=== PATIENT | male | born 1990 | race Caucasian/White ===

== ENCOUNTER 2019-07-06 12:35 | Emergency (ER) | payer BC, SELFPAY ==
[2019-07-06 13:09] VITALS: BP 167/97; PULSE 118; RESP 15; TEMP 38.2; O2SAT 99; BMI 36.0
--- NOTE | 2019-07-06 13:36 | DI.RAD.S_ITS ---
PROCEDURE: XR CHEST 1V INDICATIONS: suspected sepsis TECHNIQUE: One view of the chest was acquired. COMPARISON: None. FINDINGS: Surgical changes and devices: None. Lungs and pleura: Lungs are clear. No pleural effusions or pneumothorax. Mediastinum: Mediastinal contours appear normal. Heart size is within normal limits. Bones and chest wall: No suspicious bony lesions. Overlying soft tissues appear unremarkable. IMPRESSION: No acute cardiopulmonary abnormality. Dictated by: Gustavo Todd M.D. on 07/06/2019 at 14:11 Approved by: Gustavo Todd M.D. on 07/06/2019 at 14:11
[2019-07-06 14:18] LABS: Add Manual Diff / Slide Review NO; Basophils Absolute Auto 100 /uL (0-100); Basophils Percent Auto 0.6 % (0-2); Eosinophils Absolute Auto 0 /uL (0-450); Hematocrit 41.7 % (41-53); Hemoglobin 14.5 g/dL (13.5-17.5); Lymphocytes Absolute Auto 1800 /uL (1100-4500); Lymphocytes Percent Auto 10.1 % (25-40); Mean Corpuscular HGB Conc 34.7 % (30-36); Mean Corpuscular Hemoglobin 28.4 PG (26-34); Mean Corpuscular Volume 81.6 fL (80-100); Monocytes Absolute Auto 1500 /uL (0-900); Monocytes Percent Auto 8.3 % (3-14); Neutrophils Absolute Auto 14300 /uL (1500-7000); Platelet Count 294 X10^3/uL (150-400); Red Blood Cell Count 5.11 X10^6/uL (4.5-5.9); Red Cell Distribution Width 12.6 % (11.6-14.8); White Blood Cell Count 17.6 X10^3/uL (4.5-11.0)
[2019-07-06] MEDS: SODIUM CHLORIDE 0.9% 1,000 ML 1000 ML IV (14:24)
[2019-07-06 14:28] LABS: INR 1.2 (0.9-1.3); Prothrombin Time 14.1 SECONDS (10.1-12.7)
[2019-07-06 14:30] LABS: PTT Partial Thromboplastin Tim 32 SECONDS (26.4-36.2)
[2019-07-06 14:31] LABS: Alanine Aminotransferase 18 IU/L (<50); Albumin 4.5 g/dL (3.5-5.0); Albumin Globulin Ratio 1.2 (1.0-2.8); Alkaline Phosphatase 108 U/L (38-126); Aspartate Aminotransferase 19 IU/L (17-59); Bilirubin Total 1.3 mg/dL (0.2-1.3); Blood Urea Nitrogen 10 mg/dL (9-20); Calcium 9.5 mg/dL (8.4-10.2); Carbon Dioxide 18 mmol/L (22-32); Chloride 98 mmol/L (98-107); Estimated Glomerular Filt Rate > 60.0 mL/min (>60); Globulin 3.8 g/dL (1.7-4.1); Glucose 286 mg/dL (70-100); HEMOLYSIS < 15 (0-50); Lipase 16 U/L (23-300); Potassium 3.9 mmol/L (3.4-5.1); Sodium 135 mmol/L (137-145); Total Protein 8.3 g/dL (6.3-8.2)
[2019-07-06 14:32] LABS: Lactate (Lactic Acid) 0.9 mmol/L (0.7-2.1)
--- NOTE | 2019-07-06 14:38 | ED.SKABFB ---
HPI - Skin/Abscess/Foreign Bdy <NEETU Zamudio - Last Filed: 07/07/19 01:32> General Chief complaint: Skin/Abscess/Foreign Body Stated complaint: ABSCESS UNDER LEFT ARMPIT Time Seen by Provider: 07/06/19 13:57 Source: patient Mode of arrival: Ambulatory Limitations: no limitations History of Present Illness HPI narrative: This is a 28-year-old gentleman, nonsmoker, who presents to ED with family with chief complain of left armpit swelling, pain, redness which started about 2 weeks ago. Patient states last 2 days he has been having fever, chills, 1 episode of vomiting with worsening pain and swelling. Patient also has a lesion on right armpit which is not as severe as left-sided and it has started draining since last night. Patient reports this is the 4th time having similiar infection/symptoms since Apr last year but he has been able to treated at home up until today. Patient denies chest pain, breathing difficulty, diarrhea. Patient reports discomfort increases with movement. Related Data Home Medications Medication Instructions Recorded Confirmed Blood Pressure Medication 1 tab PO DIRECTED 07/06/19 07/06/19 ibuprofen 200 mg PO PRN PRN 07/06/19 07/06/19 Previous Rx's Medication Instructions Recorded clindamycin HCl 450 mg PO Q8H 10 Days #90 cap 07/06/19 ondansetron 4 mg PO Q8H PRN #10 tab 07/06/19 Allergies Allergy/AdvReac Type Severity Reaction Status Date / Time cefaclor [From [facility]] Allergy Verified 07/06/19 13:09 Review of Systems <NEETU Zamudio - Last Filed: 07/07/19 01:32> Review of Systems Narrative: General: See HPI HEENT: Denies sinus pain, ear pain, sore throat, difficulty swallowing, dizziness. Respiratory: Denies dyspnea, cough, wheezing, hemoptysis, sputum. Cardiovascular: Denies chest pain, palpitations, orthopnea, edema. Gastrointestinal: Denies nausea, vomiting, abdominal pain, diarrhea, constipation, melena. : Denies dysuria, frequency, incontinence, hematuria, urinary retention. Musculoskeletal: Denies weakness, joint pain or bony pain. Skin: See HPI Neurologic: Denies weakness, headache, numbness, change in speech, confusion, seizures, incoordination. Psychiatric: No concerning psychosocial issues. 12-point review of systems is negative except for those stated above. Patient History <NEETU Zamudio - Last Filed: 07/07/19 01:32> Social History Smoking Status: Unknown if ever smoked alcohol intake frequency: holidays/special occasions only Substance Use Type: does not use Exam <NEETU Zamudio - Last Filed: 07/07/19 01:32> Narrative Exam Narrative: General appearance: well developed, well nourished, in no acute distress. Head: normocephalic, atraumatic, no scalp lesions, non-tender. Eye: pupil equal, round. EOMI. Nose: nares patent. Oral: mucosa moist. Neck/Thyroid: neck supple, full range of motion, no visible masses. Heart: no clubbing, no cyanosis, no edema. Lungs: Breathing even and unlabored. No stridor. No accessory muscles used. Chest: normal shape and expansion. Abdomen: non-obese, non-distended. Neurologic: alert and oriented. Cognitive exam, ROBOTICS TECHNICIAN and PNS grossly intact on informal exam. Psych: good eye contact, normal affect. Initial Vital Signs Initial Vital Signs: Vital Signs Temperature 100.7 F H 07/06/19 13:09 Pulse Rate 118 H 07/06/19 13:09 Respiratory Rate 15 07/06/19 13:09 Blood Pressure 167/97 H 07/06/19 13:09 Pulse Oximetry 99 07/06/19 13:09 Skin General: erythema, No fluctuance, induration (Significant induration on left axilla without drainage.) and warm Lesions: lesion noted (Left and right ) Trauma: no lacerations or abrasions Other: Small, erythematic, indurated lesion on R axilla with scant amount of white/light yellow purulent drainage. <Fallon Smith DO - Last Filed: 07/07/19 07:15> Initial Vital Signs Initial Vital Signs: Vital Signs Temperature 100.7 F H 07/06/19 13:09 Pulse Rate 118 H 07/06/19 13:09 Respiratory Rate 15 07/06/19 13:09 Blood Pressure 167/97 H 07/06/19 13:09 Pulse Oximetry 99 07/06/19 13:09 Scores <Sadiq Codey DOUGHNUT ICER - Last Filed: 07/07/19 01:32> GCS Erik coma scale eye opening: Spontaneous Erik coma scale verbal response: Orientated Earth coma scale motor response: Obey commands Earth coma scale total score: 15 Course <Sadiq JOCELINE AlegreP - Last Filed: 07/07/19 01:32> Orders Ordered: Discontinued Medications Sodium Chloride (Normal Saline 0.9%) 1,000 mls @ 1,000 mls/hr IV BOLUS ONE Stop: 07/06/19 14:35 Last Infusion: 07/06/19 17:07 Dose: 0 mls/hr Documented by: Admin: 07/06/19 14:24 Dose: 1,000 mls/hr Documented by: INES Clindamycin Phosphate (Cleocin) 600 mg in 50 mls @ 50 mls/hr IV NOW ONE Stop: 07/06/19 17:08 Last Infusion: 07/06/19 17:31 Dose: 0 mls/hr Documented by: Admin: 07/06/19 16:52 Dose: 50 mls/hr Documented by: INES Ketorolac Tromethamine (Toradol) 30 mg IV NOW ONE Stop: 07/06/19 15:35 Last Admin: 07/06/19 15:42 Dose: 30 mg Documented by: INES Vital Signs Vital signs: Vital Signs - 8 hr 07/06/19 17:16 07/06/19 17:35 Temperature 99.1 F Pulse Rate 93 H Respiratory Rate 18 Blood Pressure 126/49 L Pulse Oximetry 98 <Fallon Smith DO - Last Filed: 07/07/19 07:15> Orders Ordered: Discontinued Medications Sodium Chloride (Normal Saline 0.9%) 1,000 mls @ 1,000 mls/hr IV BOLUS ONE Stop: 07/06/19 14:35 Last Infusion: 07/06/19 17:07 Dose: 0 mls/hr Documented by: Admin: 07/06/19 14:24 Dose: 1,000 mls/hr Documented by: INES Clindamycin Phosphate (Cleocin) 600 mg in 50 mls @ 50 mls/hr IV NOW ONE Stop: 07/06/19 17:08 Last Infusion: 07/06/19 17:31 Dose: 0 mls/hr Documented by: Admin: 07/06/19 16:52 Dose: 50 mls/hr Documented by: INES Ketorolac Tromethamine (Toradol) 30 mg IV NOW ONE Stop: 07/06/19 15:35 Last Admin: 07/06/19 15:42 Dose: 30 mg Documented by: INES Vital Signs Vital signs: Vital Signs - 8 hr 07/06/19 17:16 07/06/19 17:35 Temperature 99.1 F Pulse Rate 93 H Respiratory Rate 18 Blood Pressure 126/49 L Pulse Oximetry 98 MDM - Skin/Abscess/Foreign Bdy <NEETU Zamudio - Last Filed: 07/07/19 01:32> Differential Diagnosis Differential diagnosis: Likely abscess of skin or subcutaneous tissue, cellulitis and other Medical Records Attestation: I reviewed the patient's medical records. Lab Data Attestation: I reviewed the patient's lab results. Result diagrams: 07/06/19 14:07 07/06/19 14:07 Labs: Lab Results 07/06/19 07/06/19 07/06/19 Range/Units 14:07 14:07 14:07 WBC 17.6 H (4.5-11.0) X10^3/uL RBC 5.11 (4.5-5.9) X10^6/uL Hgb 14.5 (13.5-17.5) g/dL Hct 41.7 (41-53) % MCV 81.6 (80-100) fL MCH 28.4 (26-34) PG MCHC 34.7 (30-36) % RDW 12.6 (11.6-14.8) % Plt Count 294 (150-400) X10^3/uL Neut % (Auto) 81.0 H (50-75) % Lymph % (Auto) 10.1 L (25-40) % [place] % (Auto) 8.3 (3-14) % Eos % (Auto) 0.0 L (2-4) % Baso % (Auto) 0.6 (0-2) % Neut # (Auto) 52198 H (2006-9948) /uL Lymph # (Auto) 1800 (3257-5007) /uL [place] # (Auto) 1500 H (0-900) /uL Eos # (Auto) 0 (0-450) /uL Baso # (Auto) 100 (0-100) /uL PT 14.1 H (10.1-12.7) SECONDS INR 1.2 (0.9-1.3) APTT 32 (26.4-36.2) SECONDS Sodium (137-145) mmol/L Potassium (3.4-5.1) mmol/L Chloride (98-107) mmol/L Carbon Dioxide (22-32) mmol/L BUN (9-20) mg/dL Creatinine (0.66-1.25) mg/dL Estimated GFR (>60) mL/min BUN/Creatinine Ratio (6-22) Glucose (70-100) mg/dL Lactate (0.7-2.1) mmol/L Calcium (8.4-10.2) mg/dL Total Bilirubin (0.2-1.3) mg/dL AST (17-59) IU/L ALT (<50) IU/L Alkaline Phosphatase (38-126) U/L Total Protein (6.3-8.2) g/dL Albumin (3.5-5.0) g/dL Globulin (1.7-4.1) g/dL Albumin/Globulin Ratio (1.0-2.8) Lipase (23-300) U/L Procalcitonin 0.07 (<0.5) ng/mL 07/06/19 07/06/19 Range/Units 14:07 14:07 WBC (4.5-11.0) X10^3/uL RBC (4.5-5.9) X10^6/uL Hgb (13.5-17.5) g/dL Hct (41-53) % MCV (80-100) fL MCH (26-34) PG MCHC (30-36) % RDW (11.6-14.8) % Plt Count (150-400) X10^3/uL Neut % (Auto) (50-75) % Lymph % (Auto) (25-40) % [place] % (Auto) (3-14) % Eos % (Auto) (2-4) % Baso % (Auto) (0-2) % Neut # (Auto) (6008-3014) /uL Lymph # (Auto) (7691-9066) /uL [place] # (Auto) (0-900) /uL Eos # (Auto) (0-450) /uL Baso # (Auto) (0-100) /uL PT (10.1-12.7) SECONDS INR (0.9-1.3) APTT (26.4-36.2) SECONDS Sodium 135 L (137-145) mmol/L Potassium 3.9 (3.4-5.1) mmol/L Chloride 98 (98-107) mmol/L Carbon Dioxide 18 L (22-32) mmol/L BUN 10 (9-20) mg/dL Creatinine 0.40 L (0.66-1.25) mg/dL Estimated GFR > 60.0 (>60) mL/min BUN/Creatinine Ratio 25.0 H (6-22) Glucose 286 H (70-100) mg/dL Lactate 0.9 (0.7-2.1) mmol/L Calcium 9.5 (8.4-10.2) mg/dL Total Bilirubin 1.3 (0.2-1.3) mg/dL AST 19 (17-59) IU/L ALT 18 (<50) IU/L Alkaline Phosphatase 108 (38-126) U/L Total Protein 8.3 H (6.3-8.2) g/dL Albumin 4.5 (3.5-5.0) g/dL Globulin 3.8 (1.7-4.1) g/dL Albumin/Globulin Ratio 1.2 (1.0-2.8) Lipase 16 L (23-300) U/L Procalcitonin (<0.5) ng/mL Imaging Data CT-LUE: Radiologist's impression: [address] [address] [address] Scan Report Signed Patient: Jermain Quan CMR#: [id number] : 1990Acct:[id number] Age/Sex: 28 / MDate of Service: 07/06/19 Loc: ED Accession Number: [id number] Procedure: CT UE LT w con Ordering Provider: Sadiq Alegre PROCEDURE: CT UE LT W CON INDICATIONS: arm pit, swelling, fever, r/o abscess TECHNIQUE: After the administration of intravenous contrast, 3 mm axial sections acquired of the left upper extremity, with coronal and sagittal reformats. COMPARISON: None. FINDINGS: Image quality: Excellent. Bones: No fracture or focal osseous destruction. Soft tissues: Extensive subcutaneous stranding and fluid involving the axillary region, measuring 2.8 x 2.5 cm cross-sectional and axial image 158 series 5 however no definite loculated appearance or rim enhancement. There is adjacent skin thickening. Presumed scanner reactive left axillary lymph nodes. IMPRESSION: Extensive inflammatory changes in the left axilla, with associated skin thickening and subcutaneous edema and fluid. Possible developing phlegmon/inflammatory mass as discussed above measuring 2.8 cm however no definite loculated rim-enhancing abscess seen. If clinically warranted, further monitoring after treatment could be performed with focused ultrasound. No focal osseous destruction to suggest osteomyelitis. Multiple, enlarged presumed reactive left axillary lymph nodes. Dictated by: Willie Myles M.D. on 07/06/2019 at 15:19 Approved by: Willie Myles M.D. on 07/06/2019 at 15:[address] [facility] Narrative Medical decision making narrative: This is a is a 28-year-old male who presents to ED with bilateral skin lesion on bilateral axilla for last 2 weeks which became worse with redness, swelling, pain for last 2 days with fever, chills. Patient reports 1 episode of vomiting last night. Patient has been having these lesions frequently and this is the 6th time since Apr 2018 but has been self-treated so far. Right axilla lesion is small and started draining last night. Physical exam exhibited two large indurated erythematous lesions on the medial base of left upper arm and axilla. Lab tests shows leukocytosis with left shift. Normal lactate and procalcitonin. Initial vital sign showed tachycardia of 118 bpm with elevated temperature of 100.7 with normotensive. Patient was medicated with IV clindamycin and Toradol and 1 L of normal saline. Patient had elevated glucose of 286 without history of diabetes. CT of left upper extremity did not show definite locuated rim-enhancing abscess at this time and there was extensive inflammatory changes with associated skin thickening and subcutaneous edema and fluid. No suggestion of osteomyelitis at this time. Noted multiple enlarged presumed reactive left axillary lymph nodes. Since patient is able to tolerate fluids, will try outpatient therapy with antibiotic medication of clindamycin for 10 day course. Patient does not have current PCP and advised to return to ED in 2 days for recheck or the walk-in clinic he usually sick medical care. Phone number to [facility] was provided to arrange primary care selection. Patient advised warm pack, take [id number] Tylenol and Motrin for discomfort and fever. Patient verbalized understanding and agrees with the treatment plan. <Fallon Smith, DO - Last Filed: 07/07/19 07:15> Lab Data Labs: Lab Results 07/06/19 07/06/19 07/06/19 Range/Units 14:07 14:07 14:07 WBC 17.6 H (4.5-11.0) X10^3/uL RBC 5.11 (4.5-5.9) X10^6/uL Hgb 14.5 (13.5-17.5) g/dL Hct 41.7 (41-53) % MCV 81.6 (80-100) fL MCH 28.4 (26-34) PG MCHC 34.7 (30-36) % RDW 12.6 (11.6-14.8) % Plt Count 294 (150-400) X10^3/uL Neut % (Auto) 81.0 H (50-75) % Lymph % (Auto) 10.1 L (25-40) % [place] % (Auto) 8.3 (3-14) % Eos % (Auto) 0.0 L (2-4) % Baso % (Auto) 0.6 (0-2) % Neut # (Auto) 37499 H (5715-3934) /uL Lymph # (Auto) 1800 (7498-2146) /uL [place] # (Auto) 1500 H (0-900) /uL Eos # (Auto) 0 (0-450) /uL Baso # (Auto) 100 (0-100) /uL PT 14.1 H (10.1-12.7) SECONDS INR 1.2 (0.9-1.3) APTT 32 (26.4-36.2) SECONDS Sodium (137-145) mmol/L Potassium (3.4-5.1) mmol/L Chloride (98-107) mmol/L Carbon Dioxide (22-32) mmol/L BUN (9-20) mg/dL Creatinine (0.66-1.25) mg/dL Estimated GFR (>60) mL/min BUN/Creatinine Ratio (6-22) Glucose (70-100) mg/dL Lactate (0.7-2.1) mmol/L Calcium (8.4-10.2) mg/dL Total Bilirubin (0.2-1.3) mg/dL AST (17-59) IU/L ALT (<50) IU/L Alkaline Phosphatase (38-126) U/L Total Protein (6.3-8.2) g/dL Albumin (3.5-5.0) g/dL Globulin (1.7-4.1) g/dL Albumin/Globulin Ratio (1.0-2.8) Lipase (23-300) U/L Procalcitonin 0.07 (<0.5) ng/mL 07/06/19 07/06/19 Range/Units 14:07 14:07 WBC (4.5-11.0) X10^3/uL RBC (4.5-5.9) X10^6/uL Hgb (13.5-17.5) g/dL Hct (41-53) % MCV (80-100) fL MCH (26-34) PG MCHC (30-36) % RDW (11.6-14.8) % Plt Count (150-400) X10^3/uL Neut % (Auto) (50-75) % Lymph % (Auto) (25-40) % [place] % (Auto) (3-14) % Eos % (Auto) (2-4) % Baso % (Auto) (0-2) % Neut # (Auto) (7570-6696) /uL Lymph # (Auto) (3865-6789) /uL [place] # (Auto) (0-900) /uL Eos # (Auto) (0-450) /uL Baso # (Auto) (0-100) /uL PT (10.1-12.7) SECONDS INR (0.9-1.3) APTT (26.4-36.2) SECONDS Sodium 135 L (137-145) mmol/L Potassium 3.9 (3.4-5.1) mmol/L Chloride 98 (98-107) mmol/L Carbon Dioxide 18 L (22-32) mmol/L BUN 10 (9-20) mg/dL Creatinine 0.40 L (0.66-1.25) mg/dL Estimated GFR > 60.0 (>60) mL/min BUN/Creatinine Ratio 25.0 H (6-22) Glucose 286 H (70-100) mg/dL Lactate 0.9 (0.7-2.1) mmol/L Calcium 9.5 (8.4-10.2) mg/dL Total Bilirubin 1.3 (0.2-1.3) mg/dL AST 19 (17-59) IU/L ALT 18 (<50) IU/L Alkaline Phosphatase 108 (38-126) U/L Total Protein 8.3 H (6.3-8.2) g/dL Albumin 4.5 (3.5-5.0) g/dL Globulin 3.8 (1.7-4.1) g/dL Albumin/Globulin Ratio 1.2 (1.0-2.8) Lipase 16 L (23-300) U/L Procalcitonin (<0.5) ng/mL Discharge Plan Departure Patient Disposition: Home Clinical Impression: Cellulitis Qualifiers: Site of cellulitis: extremity Site of cellulitis of extremity: upper extremity Laterality: unspecified laterality Qualified Code(s): L03.119 - Cellulitis of unspecified part of limb Discharge Date/Time: 07/06/19 17:36 Instructions: DI for Cellulitis -- Adult Activity Restrictions/Additional Instructions: You have been diagnosed with [cellulitis in bilateral axilla. There was no obvious abscess in left axilla per CT test today. You were treated with 1st dose of antibiotic medication clindamycin in ED. Please take next dose later tonight. Your blood sugar today was elevated and this needs to be recheck by primary care physician.]. What to do: *Take your medications as directed. Please complete a course of antibiotic medications for 10 days. Take Zofran as needed for nausea. This medications have been transmitted to [facility] in [place]. Please incorporate probiotics with antibiotic medication to decrease GI irritations. You can take [id number] Tylenol and or Motrin as needed for fever or pain. Fever should improve next 24 hour. If you continue to have fever after this and please return to ED. * since you do not have primary care physician, please return to ED or walk-in clinic that usually visit in 2 days for a recheck. Please use warm pack on affected site to help with infection. Let them know you were seen in the ED and that we asked you to be seen in follow up. *Return to ED if you have any new, worsening, or concerning symptoms, such as [chest pain, breathing difficulty, unable to tolerate fluids, ongoing fever, feeling like faint, or any acute concerns.]. Prescriptions: New clindamycin HCl 150 mg capsule 450 mg PO Q8H 10 Days Qty: 90 RF: 0 ondansetron 4 mg tablet,disintegrating 4 mg PO Q8H PRN (Reason: nausea and vomiting) Qty: 10 RF: 0 No Action ibuprofen 200 mg Tablet 200 mg PO PRN PRN (Reason: pain) RF: 0 Blood Pressure Medication 1 tab PO DIRECTED RF: 0 Referrals: [facility] [Outside]
[2019-07-06 14:59] LABS: Procalcitonin 0.07 ng/mL (<0.5)
[2019-07-06] MEDS: KETOROLAC 60 MG/2 ML VIAL 30 MG IV (15:42)
[2019-07-06 15:46] VITALS: BP 141/91; PULSE 98; RESP 18; TEMP 36.7; O2SAT 99
[2019-07-06] MEDS: CLINDAMYCIN 600 MG/50 ML PIGGYBACK 50 MG IV (16:52)
[2019-07-06 16:54] VITALS: BP 136/77; PULSE 98; RESP 18; TEMP 37.3; O2SAT 98
[2019-07-06 17:16] VITALS: TEMP 37.3
[2019-07-06 17:35] VITALS: BP 126/49; PULSE 93; RESP 18; O2SAT 98
== END 2019-07-06 17:36 | disposition home or self-care (01) ==
PROVIDERS: Emergency Medicine; Emergency Provider Nurse Practitioner Family; Family Provider Physician Assistant
DX: L03.119 Cellulitis of unspecified part of limb (principal); R79.89 Other specified abnormal findings of blood chemistry
CPT/HCPCS: 36415; 71045; 73201; 80053; 83605; 83690; 84145; 85025; 85610; 85730; 87040; 87070; 87077; 87147; 87186; 87205; 93005; 93010; 96361; 96365; 96375; 99283; 99284; J1885; Q9967

== ENCOUNTER 2019-07-14 08:59 | Inpatient (IN) | payer BC, SELFPAY ==
[2019-07-14] VITALS (10 sets, daily range): BP systolic 138–157; BP diastolic 68–100; PULSE 98–125; RESP 14–24; TEMP 36.4–37; O2SAT 97–100; BMI 33.7
[2019-07-14] MEDS: SODIUM CHLORIDE 0.9% 1,000 ML 1000 ML IV ×2 (09:15→16:50)
--- NOTE | 2019-07-14 09:28 | ED_ITS ---
HPI - Skin/Abscess/Foreign Bdy General Chief complaint: Skin/Abscess/Foreign Body Stated complaint: cellulitis lft underarm on Bactrim DS x5days Time Seen by Provider: 07/14/19 09:19 Source: patient and old records reviewed Mode of arrival: Ambulatory Limitations: no limitations History of Present Illness HPI narrative: Patient is a 28-year-old male who presents with left axilla abscess. He was seen evaluated on 07/06/[address] is of left upper arm he was initially placed on clindamycin he was called when it was resistant and switched to Bactrim. He finished his Bactrim however he has gotten bigger. It is more painful. He has sweats and chills at night. He denies being diabetic but his glucose is been high. His arm was quite painful to move. MD complaint: abscess/boil Onset (ago): week(s) Location: LUE Severity: severe Pain Consistency: constant Relieving factors: none Associated symptoms: fever, chills and nausea Related Data Home Medications Medication Instructions Recorded Confirmed ibuprofen 200 mg PO PRN PRN 07/06/19 07/14/19 losartan 25 mg PO DAILY 07/14/19 07/14/19 Allergies Allergy/AdvReac Type Severity Reaction Status Date / Time cefaclor [From [facility]] Allergy Verified 07/14/19 14:09 Review of Systems Constitutional Constitutional: Reports chills, Reports fever(s) and Denies frequent falls Eyes Eyes: Denies blind spots and Denies blurry vision ENT Ears, Nose, Mouth, and Throat: Denies change in voice, Denies dizziness, Denies neck pain and Denies sore throat Cardiovascular Cardiovascular: Denies chest pain, Denies irregular heart rhythm, Denies lightheadedness, Denies palpitations, Denies dyspnea, Denies dyspnea on exertion and Denies orthopnea Respiratory Respiratory: Denies cough, Denies dyspnea, Denies dyspnea on exertion and Denies wheezing Gastrointestinal Gastrointestinal: Denies abdominal pain, Denies change in bowel habits, Denies diarrhea, Denies nausea and Denies vomiting Genitourinary Genitourinary: Denies hematuria, Denies flank pain, Denies urinary incontinence and Denies urinary urgency Musculoskeletal Musculoskeletal: Denies neck pain and Denies numbness Integumentary/Breasts Skin/Breast: Reports as per HPI, Reports erythema, Reports skin swelling and Reports wounds Neurologic Neurologic: Denies behavioral changes, Denies confusion, Denies dizziness, Denies frequent falls and Denies numbness Psychiatric Psychiatric: Denies behavioral changes and Denies confusion Endocrine Endocrine: Denies palpitations Allergic/Immunologic Allergic/Immunologic: Denies wheezing Patient History Medical History HTN (hypertension) (Acute) Surgical History Hx of toe surgery (Acute) No pertinent past surgical history (Acute) Social History household members: significant other Smoking Status: Never smoker alcohol intake frequency: holidays/special occasions only Substance Use Type: does not use Exam Initial Vital Signs Initial Vital Signs: Vital Signs Temperature 98.6 F 07/14/19 09:00 Pulse Rate 125 H 07/14/19 09:00 Respiratory Rate 20 07/14/19 09:00 Blood Pressure 155/100 H 07/14/19 09:00 Pulse Oximetry 100 07/14/19 09:00 GENERAL: Overweight well-appearing young male HEENT: Head atraumatic,EOMI, pupils reactive, face symmetric, moist mucous membranes CARDIOVASCULAR: Regular rate and rhythm without murmurs, rubs or gallops. RESPIRATORY: Breath sounds equal bilaterally, no wheezes rales or rhonchi. ABDOMEN: Soft, nontender. Normoactive bowel sounds all 4 quadrants. No guard ing or rebound. EXTREMITIES: Normal range of motion, no clubbing or edema. Neurovascularly intact NEUROLOGICAL: Alert and oriented x4.Normal gait and speech. SKIN: Significant swelling fluctuation under the left axilla. He has 6 cm x 4 cm area of fluctuation. All much larger area of 10 cm more infiltration no streaking. Significant decreased range of movement in arm Course Orders Ordered: ED Orders 07/14/19 10:11 Blood Culture Stat Complete Blood Count AUTO DIFF Stat Comprehensive Metabolic Panel Stat Ketones (Beta-Hydroxybutyrate) Stat Lactate (Lactic Acid) Stat Procalcitonin Stat 07/14/19 11:43 Consult to General Surgery Stat Acetaminophen (Tylenol) 650 mg PO Q6HR PRN PRN Reason: As Needed for Fever/Mild Pain Al Hydrox/Mg Hydrox/Simethicone (Maalox Plus) 30 ml PO Q6HR PRN PRN Reason: Dyspepsia Bisacodyl (Dulcolax) 10 mg MA DAILY PRN PRN Reason: Constipation Calcium Carbonate (Tums) 1,000 mg PO Q4HR PRN PRN Reason: Dyspepsia Heparin Sodium (Porcine) (Heparin) 5,000 unit SUBCUT BID NIKA Sodium Chloride (Normal Saline 0.9%) 1,000 mls @ 200 mls/hr IV CONT NIKA Last Infusion: 07/14/19 14:58 Dose: 200 mls/hr Documented by: Admin: 07/14/19 14:12 Dose: 100 mls/hr Documented by: ELLYN Ketorolac Tromethamine (Toradol) 30 mg IV Q6HR PRN PRN Reason: Pain, Severe (7-10) Stop: 07/19/19 12:24 Naloxone HCl (Narcan) 0.2 mg IV Q2MIN PRN PRN Reason: Opiate Reversal Ondansetron HCl (Zofran) 4 mg IV Q8HR PRN PRN Reason: Nausea And Vomiting Vancomycin HCl (Vancomycin Per Pharmacy) 1 request MISC NOW ONE Stop: 07/14/19 14:51 Discontinued Medications Hydromorphone HCl (Dilaudid) 0.5 mg IV NOW ONE Stop: 07/14/19 10:01 Last Admin: 07/14/19 10:14 Dose: 0.5 mg Documented by: CHRISTIANA Sodium Chloride (Normal Saline 0.9%) 1,000 mls @ 1,000 mls/hr IV CONT NIKA Last Infusion: 07/14/19 10:40 Dose: 0 mls/hr Documented by: Admin: 07/14/19 09:15 Dose: 1,000 mls/hr Documented by: CHRISTIANA Vancomycin HCl/Dextrose (Vancomycin) 1,500 mg in 300 mls @ 200 mls/hr IV NOW ONE Stop: 07/14/19 10:54 Last Infusion: 07/14/19 12:08 Dose: 0 mls/hr Documented by: Admin: 07/14/19 10:28 Dose: 200 mls/hr Documented by: CHRISTIANA Sodium Chloride (Normal Saline 0.9%) 1,000 mls @ 200 mls/hr IV CONT NIKA Last Infusion: 07/14/19 13:34 Dose: 0 mls/hr Documented by: Admin: 07/14/19 10:40 Dose: 200 mls/hr Documented by: CHRISTIANA Insulin Human Regular (Humulin R) 5 unit IV NOW ONE Stop: 07/14/19 12:42 Last Admin: 07/14/19 12:55 Dose: 5 unit Documented by: LIGIA Cosigned by: CHRISTIANA Insulin Human Regular (Humulin R) 10 unit IV NOW ONE Stop: 07/14/19 14:51 Ketorolac Tromethamine (Toradol) 30 mg IV NOW ONE Stop: 07/14/19 10:01 Last Admin: 07/14/19 10:14 Dose: 30 mg Documented by: CHRISTIANA Ondansetron HCl (Zofran) 4 mg IV NOW ONE Stop: 07/14/19 09:26 Last Admin: 07/14/19 10:02 Dose: 4 mg Documented by: CHRISTIANA Pantoprazole Sodium (Protonix) 40 mg IV NOW ONE Stop: 07/14/19 09:26 Last Admin: 07/14/19 10:02 Dose: 40 mg Documented by: CHRISTIANA Consultations Consultation #1: Dr. Murillo, surgery updated of patient's symptoms test results. Is in ED to seen evaluated patient. At this time no further imaging patient likely needs to go to OR to have drainage. A does request patient need to be admitted to Medicine for elevated glucose. Time: 11:05 Consultation #2: Dr. Leonard, updated patient's test results symptoms need for consultation. Patient will likely be going to the OR probably tomorrow. Recommends IV insulin push, admit to ICU. Time: 11:50 Vital Signs Vital signs: Vital Signs - 8 hr 07/14/19 09:00 07/14/19 09:56 07/14/19 10:30 Temperature 98.6 F Pulse Rate 125 H 107 H 109 H Respiratory Rate 20 18 18 Blood Pressure 155/100 H Blood Pressure [Right Arm] 157/91 H 151/81 H Pulse Oximetry 100 100 98 07/14/19 11:00 07/14/19 12:00 Temperature Pulse Rate 112 H 99 H Respiratory Rate 18 16 Blood Pressure Blood Pressure [Right Arm] 146/78 H 154/77 H Pulse Oximetry 98 99 MDM - Skin/Abscess/Foreign Bdy Lab Data Attestation: I reviewed the patient's lab results. Lab results narrative: Anion Gap 20 with ketones. Result diagrams: 07/14/19 10:11 07/14/19 10:11 Labs: Lab Results 07/14/19 07/14/19 07/14/19 Range/Units 10:11 10:11 10:11 WBC 20.7 H (4.5-11.0) X10^3/uL RBC 5.06 (4.5-5.9) X10^6/uL Hgb 14.3 (13.5-17.5) g/dL Hct 42.0 (41-53) % MCV 83.1 (80-100) fL MCH 28.3 (26-34) PG MCHC 34.1 (30-36) % RDW 13.0 (11.6-14.8) % Plt Count 386 (150-400) X10^3/uL Neut % (Auto) Not Reportable Lymph % (Auto) Not Reportable [place] % (Auto) Not Reportable Eos % (Auto) Not Reportable Baso % (Auto) Not Reportable Lymph # (Auto) Not Reportable [place] # (Auto) Not Reportable Baso # (Auto) Not Reportable Total Counted 100 Seg Neutrophils % 93.0 H (38-70) % Lymphocytes % (Manual) 2.0 L (25-45) % Monocytes % (Manual) 4.0 (2-11) % Eosinophils % (Manual) 1.0 L (2-4) % Neutrophils # (Manual) 80541 H (4308-0993) /uL RBC Morphology Normal morphology Sodium 136 L (137-145) mmol/L Potassium 4.7 (3.4-5.1) mmol/L Chloride 102 (98-107) mmol/L Carbon Dioxide 14 L (22-32) mmol/L BUN 10 (9-20) mg/dL Creatinine 0.50 L (0.66-1.25) mg/dL Estimated GFR > 60.0 (>60) mL/min BUN/Creatinine Ratio 20.0 (6-22) Glucose 379 H (70-100) mg/dL Hemoglobin A1c (4.0-6.0) % Lactate (0.7-2.1) mmol/L Calcium 9.3 (8.4-10.2) mg/dL Total Bilirubin 0.6 (0.2-1.3) mg/dL AST 23 (17-59) IU/L ALT 26 (<50) IU/L Alkaline Phosphatase 161 H (38-126) U/L Total Protein 7.7 (6.3-8.2) g/dL Albumin 3.9 (3.5-5.0) g/dL Globulin 3.8 (1.7-4.1) g/dL Albumin/Globulin Ratio 1.0 (1.0-2.8) Procalcitonin 0.17 (<0.5) ng/mL Ketones (<0.27) mmol/L 07/14/19 07/14/19 07/14/19 Range/Units 10:11 10:11 10:11 WBC (4.5-11.0) X10^3/uL RBC (4.5-5.9) X10^6/uL Hgb (13.5-17.5) g/dL Hct (41-53) % MCV (80-100) fL MCH (26-34) PG MCHC (30-36) % RDW (11.6-14.8) % Plt Count (150-400) X10^3/uL Neut % (Auto) Lymph % (Auto) [place] % (Auto) Eos % (Auto) Baso % (Auto) Lymph # (Auto) [place] # (Auto) Baso # (Auto) Total Counted Seg Neutrophils % (38-70) % Lymphocytes % (Manual) (25-45) % Monocytes % (Manual) (2-11) % Eosinophils % (Manual) (2-4) % Neutrophils # (Manual) (8385-1190) /uL RBC Morphology Sodium (137-145) mmol/L Potassium (3.4-5.1) mmol/L Chloride (98-107) mmol/L Carbon Dioxide (22-32) mmol/L BUN (9-20) mg/dL Creatinine (0.66-1.25) mg/dL Estimated GFR (>60) mL/min BUN/Creatinine Ratio (6-22) Glucose (70-100) mg/dL Hemoglobin A1c 11.0 H (4.0-6.0) % Lactate 1.2 (0.7-2.1) mmol/L Calcium (8.4-10.2) mg/dL Total Bilirubin (0.2-1.3) mg/dL AST (17-59) IU/L ALT (<50) IU/L Alkaline Phosphatase (38-126) U/L Total Protein (6.3-8.2) g/dL Albumin (3.5-5.0) g/dL Globulin (1.7-4.1) g/dL Albumin/Globulin Ratio (1.0-2.8) Procalcitonin (<0.5) ng/mL Ketones 5.82 H (<0.27) mmol/L Point of Care Testing Glucose POC 354 Urine Dip Bedside Urine Glucose 1000 mg/dl Bedside Urine Bilirubin - Negative Bedside Urine Ketone +++ 80 Urine Specific [place] 1.025 Bedside Urine Occult Blood +/- Bedside Urine pH 5.5 Bedside Urine Protein ++ 100 Bedside Urine Urobilinogen - Negative Bedside Urine Nitrite - Negative Bedside Urine Leukocytes - Negative Esterase MDM Narrative Medical decision making narrative: The patient has an obvious abscess in his left axilla region which has failed outpatient antibiotics. He also is likely new onset diabetes. He has elevated glucose ketones and a small anion gap. He has a normal lactic acid. Is no abdominal pain nausea or vomiting. He is insulin naive will give a small amount of insulin was frequent checks. Discharge Plan Departure Patient Disposition: Admitted As Inpatient Clinical Impression: Abscess of axilla, left, Acute hyperglycemia Discharge Date/Time: 07/14/19 13:48 Admit Date/Time: 07/14/19 12:10 Admit Provider: Leticia Leonard
[2019-07-14] MEDS: PANTOPRAZOLE 40 MG VIAL IV (10:02)
[2019-07-14] MEDS: ONDANSETRON 4 MG/2 ML INJ IV (10:02)
[2019-07-14] MEDS: KETOROLAC 60 MG/2 ML VIAL 30 MG IV (10:14)
[2019-07-14] MEDS: HYDROMORPHONE 0.5 MG INJ IV (10:14)
[2019-07-14] MEDS: VANCOMYCIN 1,500 MG/300 ML FROZ.PIGGY 200 MG IV ×2 (10:28→17:49)
[2019-07-14 10:39] LABS: Hemoglobin 14.3 g/dL (13.5-17.5); Mean Corpuscular HGB Conc 34.1 % (30-36); Mean Corpuscular Hemoglobin 28.3 PG (26-34); Mean Corpuscular Volume 83.1 fL (80-100); Platelet Count 386 X10^3/uL (150-400); Red Blood Cell Count 5.06 X10^6/uL (4.5-5.9); White Blood Cell Count 20.7 X10^3/uL (4.5-11.0)
[2019-07-14] MEDS: SODIUM CHLORIDE 0.9% 1,000 ML 200 ML IV (10:40)
[2019-07-14 10:42] LABS: Add Manual Diff / Slide Review YES
[2019-07-14 10:46] LABS: Lactate (Lactic Acid) 1.2 mmol/L (0.7-2.1)
[2019-07-14 10:47] LABS: Alanine Aminotransferase 26 IU/L (<50); Albumin 3.9 g/dL (3.5-5.0); Alkaline Phosphatase 161 U/L (38-126); Aspartate Aminotransferase 23 IU/L (17-59); Bilirubin Total 0.6 mg/dL (0.2-1.3); Blood Urea Nitrogen 10 mg/dL (9-20); Calcium 9.3 mg/dL (8.4-10.2); Carbon Dioxide 14 mmol/L (22-32); Chloride 102 mmol/L (98-107); Estimated Glomerular Filt Rate > 60.0 mL/min (>60); Globulin 3.8 g/dL (1.7-4.1); Glucose 379 mg/dL (70-100); HEMOLYSIS < 15 (0-50); Potassium 4.7 mmol/L (3.4-5.1); Sodium 136 mmol/L (137-145); Total Protein 7.7 g/dL (6.3-8.2)
[2019-07-14 10:56] LABS: Procalcitonin 0.17 ng/mL (<0.5)
[2019-07-14 11:05] LABS: Neutrophils Absolute Manual 19251 /uL (3000-5900); Total Cells Counted 100
[2019-07-14 11:06] LABS: RBC Morphology Normal Morphology
--- NOTE | 2019-07-14 11:50 | P.CONS_ITS ---
History of Present Illness Consult details Date Patient Seen: 07/14/19 Time Patient Seen: 11:51 Chief complaint: cellulitis lf underarm on Bactrim DS x5days Reason for consult: Left axillary abscess Narrative: 28-year-old white male has had a cellulitis in the left axilla for about a week and has been on Bactrim DS. He comes in this morning to the emergency department again with severe pain in the left axilla no drainage and a large abscess palpable. Blood sugar nearly 400. Patient is unknown to be a diabetic. [facility] Surgical History No pertinent past surgical history (Acute) Social History Smoking Status: Never smoker Meds Home Medications and Allergies Home Medications Medication Instructions Recorded Confirmed Type ibuprofen 200 mg PO PRN PRN 07/06/19 07/14/19 History ondansetron 4 mg PO Q8H PRN #10 tab 07/06/19 07/14/19 Rx losartan 25 mg PO DAILY 07/14/19 07/14/19 History sulfamethoxazole-trimethoprim 1 tab PO BID 07/14/19 07/14/19 History Allergies Allergy/AdvReac Type Severity Reaction Status Date / Time cefaclor [From [facility]] Allergy Verified 07/06/19 13:09 Review of Systems Review of Systems ROS Unobtainable: All systems reviewed & are unremarkable except as noted in HPI and below Exam Vital Signs (past 8 hours): - 07/14/19 09:00 07/14/19 09:56 07/14/19 10:30 Temperature 98.6 F Pulse Rate 125 H 107 H 109 H Respiratory Rate 20 18 18 Blood Pressure 155/100 H Blood Pressure [Right Arm] 157/91 H 151/81 H Pulse Oximetry 100 100 98 07/14/19 11:00 Temperature Pulse Rate 112 H Respiratory Rate 18 Blood Pressure Blood Pressure [Right Arm] 146/78 H Pulse Oximetry 98 Oxygen Delivery Method Room Air Narrative Exam Narrative: Patient is afebrile complaining of severe pain in the left axilla. He is morbidly obese. Examination left axilla shows a large fluctuant area with surrounding erythema this is about the size of a grapefruit. Patient has a smaller less acute area visible and palpable in the right axilla which is not fluctuant. There is evidence of bilateral axillary hidradenitis suppurativa. Cardiopulmonary exam is unremarkable. Objective Labs Result Diagrams: 07/14/19 10:11 07/14/19 10:11 Labs: Laboratory Results - last 24 hr 07/14/19 07/14/19 07/14/19 10:11 10:11 10:11 WBC 20.7 H RBC 5.06 Hgb 14.3 Hct 42.0 MCV 83.1 MCH 28.3 MCHC 34.1 RDW 13.0 Plt Count 386 Neut % (Auto) Not Reportable Lymph % (Auto) Not Reportable [place] % (Auto) Not Reportable Eos % (Auto) Not Reportable Baso % (Auto) Not Reportable Lymph # (Auto) Not Reportable [place] # (Auto) Not Reportable Baso # (Auto) Not Reportable Total Counted 100 Seg Neutrophils % 93.0 H Lymphocytes % (Manual) 2.0 L Monocytes % (Manual) 4.0 Eosinophils % (Manual) 1.0 L Neutrophils # (Manual) 77700 H RBC Morphology Normal morphology Sodium 136 L Potassium 4.7 Chloride 102 Carbon Dioxide 14 L BUN 10 Creatinine 0.50 L Estimated GFR > 60.0 BUN/Creatinine Ratio 20.0 Glucose 379 H Lactate Calcium 9.3 Total Bilirubin 0.6 AST 23 ALT 26 Alkaline Phosphatase 161 H Total Protein 7.7 Albumin 3.9 Globulin 3.8 Albumin/Globulin Ratio 1.0 Procalcitonin 0.17 07/14/19 10:11 WBC RBC Hgb Hct MCV MCH MCHC RDW Plt Count Neut % (Auto) Lymph % (Auto) [place] % (Auto) Eos % (Auto) Baso % (Auto) Lymph # (Auto) [place] # (Auto) Baso # (Auto) Total Counted Seg Neutrophils % Lymphocytes % (Manual) Monocytes % (Manual) Eosinophils % (Manual) Neutrophils # (Manual) RBC Morphology Sodium Potassium Chloride Carbon Dioxide BUN Creatinine Estimated GFR BUN/Creatinine Ratio Glucose Lactate 1.2 Calcium Total Bilirubin AST ALT Alkaline Phosphatase Total Protein Albumin Globulin Albumin/Globulin Ratio Procalcitonin Assessment & Plan Assessment & Plan narrative: Patient has a large left axillary abscess and is a newly diagnosed diabetic with a blood sugar of nearly 400. He is being admitted to the medical service for control of his severe hyperglycemia. My plan is to drain that axilla under general anesthesia but unfortunately we cannot do that with his blood sugar 400. My plan is to operate on the patient within the next 24 hours. Patient has been placed on vancomycin with which I agree.
[2019-07-14 12:31] LABS: Ketones (Beta-Hydroxybutyrate) 5.82 mmol/L (<0.27)
[2019-07-14] MEDS: INSULIN REGULAR 100 UNIT/ML 3 ML VIAL IV (12:55)
[2019-07-14] MEDS: SODIUM CHLORIDE 0.9% 1,000 ML 100 ML IV (14:12)
--- NOTE | 2019-07-14 14:33 | PC.ADMIT ---
Admission Note: Pt arrived to room 105 via wheelchair at 1355. Walked to bed from wheelchair without issue. Alert and oriented x3. Denies pain at this time, denies nausea. Abscess to right axilla erythemic and about the size of a quarter. Abscess to left axilla very erythemic and swollen, no drainage noted, extends throughout entire axilla. Placed in contact isolation based on culture results from left axilla (cultures sent 07/06 during previous ER visit). ST in the low 100s. CBG 319 on arrival. NPO for possible surgery. Oriented to room and to bed/tv/call light controls, acknowledged understanding. Call light within reach. Cell phone, glasses, clothing, and one earring with patient. The patient,Jermain Quan,28 y/o, was given written information regarding hospital policies, unit procedures and contact persons. Patient's smoking status: Never smoker. Vital Signs - 8 hr 07/14/19 09:00 07/14/19 09:56 07/14/19 10:30 Temperature 98.6 F Pulse Rate 125 H 107 H 109 H Respiratory Rate 20 18 18 Blood Pressure 155/100 H Blood Pressure [Right Arm] 157/91 H 151/81 H Pulse Oximetry 100 100 98 07/14/19 11:00 07/14/19 12:00 07/14/19 12:40 Temperature Pulse Rate 112 H 99 H 101 H Respiratory Rate 18 16 Blood Pressure Blood Pressure [Right Arm] 146/78 H 154/77 H 138/68 Pulse Oximetry 98 99 99 07/14/19 13:00 07/14/19 13:30 07/14/19 14:00 Temperature 98.4 F 98.3 F Pulse Rate 98 H 99 H 101 H Respiratory Rate 18 18 24 Blood Pressure 149/85 H Blood Pressure [Right Arm] 150/85 H 152/84 H Pulse Oximetry 97 97 97
[2019-07-14 15:34] LABS: Blood Urea Nitrogen 10 mg/dL (9-20); Calcium 9.1 mg/dL (8.4-10.2); Carbon Dioxide 14 mmol/L (22-32); Chloride 105 mmol/L (98-107); Estimated Glomerular Filt Rate > 60.0 mL/min (>60); Glucose 338 mg/dL (70-100); HEMOLYSIS < 15 (0-50); Lactate (Lactic Acid) 0.9 mmol/L (0.7-2.1); Potassium 4.6 mmol/L (3.4-5.1); Sodium 137 mmol/L (137-145)
[2019-07-14] MEDS: INSULIN REGULAR 100 UNIT/ML 3 ML VIAL 10 UNIT IV (16:01)
--- NOTE | 2019-07-14 16:42 | PM.HP.1 ---
History of Present Illness History of Present Illness Date Patient Seen: 07/14/19 Chief complaint: cellulitis lf underarm on Bactrim DS x5days Narrative: Jermain Mcgovern is a 28-year-old male with a past medical history significant for hypertension and hidradenitis suppurativa who presented to the ED for worsening left axillary abscess. The patient reports that he was seen in the emergency department on 07/06/2019 for a ?growing abscess consistent with infected hidradenitis suppurativa for which he was placed on antibiotics with clindamycin and discharged home. He received a phone call at home several days later to inform him of his wound culture results which were positive for MRSA and that his antibiotic was changed from clindamycin to Bactrim. He followed up with his primary care physician at the walk-in clinic who believed his left arm abscess was improving. He completed the course of Bactrim but noticed several days later that his abscess was growing in size and becoming slightly more painful. He reports significant pain with any movement. He has very little pain at rest. 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 He usually manages these conservatively with hot compresses, Epsom salt soaks, and lets them drain on their own without extraction. He endorses intermittent headache especially in the mornings, mild nausea and vomiting this morning and 3 days ago, and exquisite tenderness to palpation of left axillary abscess. He has no other complaints and denies lightheadedness or dizziness, vision changes, palpitations, chest pain, shortness of breath, abdominal pain, current nausea or vomiting, fever, chills, dysuria, diarrhea or constipation. He also has intermittent diarrhea. ED course: Previous CT of left axilla demonstrated possible phlegmon versus early abscess. No repeat imaging performed today. WBC 20.7 with 93% PMNs otherwise normal CBC. CMP demonstrated mildly low sodium with anion gap metabolic acidosis of 20 likely due to hyperglycemia with glucose 379. Lactic acid normal at 1.2. General surgery was consulted and plans to perform I and D in the OR tomorrow morning. Patient was admitted inpatient for further evaluation and treatment. Patient History Medical History Amputated toe of right foot (Acute) HTN (hypertension) (Acute) Osteomyelitis of ankle and foot (Acute) Surgical History Hx of toe surgery (Acute) No pertinent past surgical history (Acute) S/P tonsillectomy (Acute) Family & Social History Family History Father Diabetes mellitus Hypertension Mother Benign neoplasm of abdomen Sister Diabetes mellitus Social History: household members significant other Safety & Behavioral: Feels Safe in Current Yes Environment Been Physically Hurt or No Threatened By a Person Suicidal Ideation Description None Suicide Plan Description No Plan Tobacco & Substance use: Smoking Status Never smoker alcohol intake frequency holiday/special occasion Substance Use Type does not use Patient has a fiancee of 3 years. He works at [employer] in the [employer] department. He has no children. Meds Home Medications and Allergies Home Medications Medication Instructions Recorded Confirmed Type ibuprofen 200 mg PO PRN PRN 07/06/19 07/14/19 History losartan 25 mg PO DAILY 07/14/19 07/14/19 History Allergies Allergy/AdvReac Type Severity Reaction Status Date / Time cefaclor [From Ceclor] Allergy Verified 07/14/19 14:09 Review of Systems Review of Systems Narrative: A 10 system comprehensive review of systems was conducted with the patient and found to be negative except as above in the History of Present Illness. Exam Vital Signs (past 8 hours): - 07/14/19 09:00 07/14/19 09:56 07/14/19 10:30 Temperature 98.6 F Pulse Rate 125 H 107 H 109 H Respiratory Rate 20 18 18 Blood Pressure 155/100 H Blood Pressure [Right Arm] 157/91 H 151/81 H Pulse Oximetry 100 100 98 07/14/19 11:00 07/14/19 12:00 07/14/19 12:40 Temperature Pulse Rate 112 H 99 H 101 H Respiratory Rate 18 16 Blood Pressure Blood Pressure [Right Arm] 146/78 H 154/77 H 138/68 Pulse Oximetry 98 99 99 07/14/19 13:00 07/14/19 13:30 07/14/19 14:00 Temperature 98.4 F 98.3 F Pulse Rate 98 H 99 H 101 H Respiratory Rate 18 18 24 Blood Pressure 149/85 H Blood Pressure [Right Arm] 150/85 H 152/84 H Pulse Oximetry 97 97 97 Oxygen Delivery Method Room Air Oxygen Flow Rate 0 Narrative Exam Narrative: General: Young gentleman lying in bed and in no acute distress, appears acutely ill, well-developed, well-nourished, appropriately interactive. HEENT: Normocephalic, atraumatic. External ears without defect. Pupils equal, round, and reactive to light. Anicteric sclerae, moist conjunctivae, and no lid lag. Oropharynx free of erythema and cobble stoning with moist mucosa. Neck: Supple with full range of motion. No jugular venous distension. No lymphadenopathy or thyromegaly. Cardiovascular: Regular rhythm, tachycardic, without murmurs, rubs, or gallops appreciated. Pulmonary: Clear to auscultation bilaterally without crackles, wheezes, or rhonchi. Normal respiratory effort with no use of accessory muscles. Abdomen: Soft, obese, bowel sounds present, nontender, nondistended. No hepatosplenomegaly or masses appreciated. Extremities: No clubbing, cyanosis, or edema. Left axilla with large baseball sized abscess with surrounding erythema and exquisitely tender to touch. Small hidradenitis suppurativa of right axilla and 1 on waistline. Neurological: Cranial nerves grossly intact. Psychiatric: Normal mood and affect. Alert and oriented to person, place, and time. Objective Labs Result Diagrams: 07/14/19 10:11 07/14/19 15:11 Labs: Laboratory Results - last 24 hr 07/14/19 07/14/19 07/14/19 10:11 10:11 10:11 WBC 20.7 H RBC 5.06 Hgb 14.3 Hct 42.0 MCV 83.1 MCH 28.3 MCHC 34.1 RDW 13.0 Plt Count 386 Neut % (Auto) Not Reportable Lymph % (Auto) Not Reportable [place] % (Auto) Not Reportable Eos % (Auto) Not Reportable Baso % (Auto) Not Reportable Lymph # (Auto) Not Reportable [place] # (Auto) Not Reportable Baso # (Auto) Not Reportable Total Counted 100 Seg Neutrophils % 93.0 H Lymphocytes % (Manual) 2.0 L Monocytes % (Manual) 4.0 Eosinophils % (Manual) 1.0 L Neutrophils # (Manual) 87118 H RBC Morphology Normal morphology Sodium 136 L Potassium 4.7 Chloride 102 Carbon Dioxide 14 L BUN 10 Creatinine 0.50 L Estimated GFR > 60.0 BUN/Creatinine Ratio 20.0 Glucose 379 H Hemoglobin A1c Lactate Calcium 9.3 Total Bilirubin 0.6 AST 23 ALT 26 Alkaline Phosphatase 161 H Total Protein 7.7 Albumin 3.9 Globulin 3.8 Albumin/Globulin Ratio 1.0 Procalcitonin 0.17 Ketones 07/14/19 07/14/19 07/14/19 10:11 10:11 10:11 WBC RBC Hgb Hct MCV MCH MCHC RDW Plt Count Neut % (Auto) Lymph % (Auto) [place] % (Auto) Eos % (Auto) Baso % (Auto) Lymph # (Auto) [place] # (Auto) Baso # (Auto) Total Counted Seg Neutrophils % Lymphocytes % (Manual) Monocytes % (Manual) Eosinophils % (Manual) Neutrophils # (Manual) RBC Morphology Sodium Potassium Chloride Carbon Dioxide BUN Creatinine Estimated GFR BUN/Creatinine Ratio Glucose Hemoglobin A1c 11.0 H Lactate 1.2 Calcium Total Bilirubin AST ALT Alkaline Phosphatase Total Protein Albumin Globulin Albumin/Globulin Ratio Procalcitonin Ketones 5.82 H 07/14/19 07/14/19 15:11 15:11 WBC RBC Hgb Hct MCV MCH MCHC RDW Plt Count Neut % (Auto) Lymph % (Auto) [place] % (Auto) Eos % (Auto) Baso % (Auto) Lymph # (Auto) [place] # (Auto) Baso # (Auto) Total Counted Seg Neutrophils % Lymphocytes % (Manual) Monocytes % (Manual) Eosinophils % (Manual) Neutrophils # (Manual) RBC Morphology Sodium 137 Potassium 4.6 Chloride 105 Carbon Dioxide 14 L BUN 10 Creatinine 0.50 L Estimated GFR > 60.0 BUN/Creatinine Ratio 20.0 Glucose 338 H Hemoglobin A1c Lactate 0.9 Calcium 9.1 Total Bilirubin AST ALT Alkaline Phosphatase Total Protein Albumin Globulin Albumin/Globulin Ratio Procalcitonin Ketones Assessment & Plan Assessment & Plan narrative: Jermain Mcgovern is a 28-year-old male with a past medical history significant for hypertension and hidradenitis suppurativa who presented to the ED for worsening left axillary abscess. 1. Left axillary abscess, secondary to infected hidradenitis suppurativa, present on admission. Active. -Patient presented with enlarging left axillary abscess consistent with infected hidradenitis suppurativa. Patient does not have organ dysfunction or meet sepsis criteria. qSOFA 0. -Previous wound culture from 07/06/2019 grew MRSA resistant to clindamycin and erythromycin. -Initial WBC 20.7 and procalcitonin 0.17. Lactic acid normal at 1.2. Continue to trend WBC and procalcitonin daily. -Blood cultures x2 pending. -Continue to monitor closely on telemetry. -Ordered alternating acetaminophen 650 mg every 6 hours as needed for pain and ketorolac 30 mg IV every 6 hours as needed for pain. -Received 1 L of NS in ED. Ordered another 1 L NS bolus x1 and then will start normal saline at 125 mL/hr. -Received vancomycin 1500 mg IV x1 in ED. Continue vancomycin with dosing per pharmacist. If patient's infectious markers are not improving consider broadening antibiotic to gram-negative coverage. -Consulted General surgery, Dr. Murillo, who plans to perform a I&D tomorrow morning. Patient will be NPO at midnight. 2. 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 Active. -Patient initially presented with glucose of 379, ketones 5.82, and mild anion gap metabolic acidosis 20. Repeat BMP demonstrated AG of 18 and normalizing. -Hemoglobin A1c 11.0%. -Received regular insulin 5 units IV x1 in ED. Ordered another 10 units regular insulin IV x1. -Continue every 1 hour blood glucose checks for next 4-6 hours or until blood glucose less than 200 and then will continue ACHS blood glucose checks and low-dose correctional scale insulin. Goal blood glucose 140-180. -Started Lantus 7 units at bedtime. May consider starting metformin at time of discharge. -Continue carbohydrate consistent diet. NPO at midnight for planned I&D. 3. Hypertension, chronic, present on admission. Stable. -Patient reports he previously was on losartan then just got lazy and stop taking the medication. -Plan to continue losartan 25 mg daily postoperatively due to risk of intraoperative hypotension. Ordered labetalol 10 mg IV every 6 hours as needed for SBP > 180 mmHg. Patient is admitted under inpatient status with expected length of stay greater than 2 midnights due to severity of presenting symptoms, risk of adverse event, and complexity of treatment plan. Quality VTE Deep Vein Thrombosis/Pulmonary Embolism Present on Admission: No
[2019-07-14] MEDS: SODIUM CHLORIDE 0.9% 1,000 ML 125 ML IV (16:47)
[2019-07-14 17:50] LABS: Bacteria Urine None Seen; RBC Urine None Seen (0-5/HPF); WBC Urine None Seen (0-5/HPF)
[2019-07-14 18:00] LABS: Granular Casts Urine 5-10/LPF; Hyaline Casts Urine 1-5/LPF; Mucus Urine 1+ (Negative)
[2019-07-14 18:01] LABS: Culture Indicated Urine Cult Not Indicated
[2019-07-14 18:03] LABS: Creatinine Urine Random 40.1 mg/dL; Protein (Total) Urine Random 125 mg/dL (0-12); Protein Creatinine Ratio Urine 3.11 GRAM/24H
[2019-07-14] MEDS: KETOROLAC 30 MG/ML VIAL IV (19:32)
[2019-07-14] MEDS: HEPARIN 5,000 UNIT/ML VIAL 5000 UNIT SUBCUT (20:08)
[2019-07-14] MEDS: INSULIN GLARGINE 100 UNIT/ML 3ML PEN 7 UNIT SUBCUT (20:10)
[2019-07-14] MEDS: INSULIN ASPART 100 UNIT/ML INSULN PEN SUBCUT (20:10)
[2019-07-15] VITALS (26 sets, daily range): BP systolic 123–156; BP diastolic 68–99; PULSE 81–106; RESP 11–27; TEMP 36.2–37.5; O2SAT 95–100
--- NOTE | 2019-07-15 | PATH_ITS ---
[facility] Accession Number: [id number] . 01 Material submitted: . AXILLARY - LEFT AXILLARY TISSUE . 01 Clinical history: . CELLULITIS IF UNDERARM OF BACTRIM DS X 5 DAYS . 02 Diagnosis: Left Axillary Tissue, Excision: Abscess contents. Clusters of Gram-positive cocci highlighted on Gram stain. No evidence of neoplasm. MRV 07/19/2019 1426 Local . 02 Comment: As part of routine director of quality, Dr. Casas has reviewed this case and agrees with the above interpretation. . 02 Electronically signed: . Bg Norton MD, PhD, Pathologist NPI- [id number] . 01 Gross description: . The specimen is received in a formalin-filled container labeled left axillary tissue and consists of two hemorrhagic diffusely dusky friable soft tissue fragments 1.6 cm up to 3.5 cm without any grossly identifiable skin present, which have a combined weight of 5.0 grams. The tissues are inked orange and sectioning reveals diffusely hemorrhagic dusky friable cut surfaces. . Barrel Assembler Helper sections are submitted as follows: A1 -smaller tissue trisected entirely submitted; A2-A3 - larger tissue, international account representative sections. ([id number]) /[facility] 07/17/2019 1641 Local . 02 Microscopic: . Sections are of connective tissue expanded by an exudate consisting predominantly of devitalized neutrophils. A tissue Gram stain highlights numerous clusters of Gram-positive cocci. A control stain shows appropriate reactivity. . 02 Pathologist provided ICD-10: L02.91 . 02 CPT . 132795, [id number] Performed at: 01 [facility] [address] [place] [address] [address], [place], [place] [id number] MD Foster Zavala MD Phone: [phone] Performed at: 02 [facility] [place] [address] [place] [id number] MD Brittany Casas MD Phone: [phone]
[2019-07-15] MEDS: KETOROLAC 30 MG/ML VIAL IV ×3 (00:34→14:41)
[2019-07-15] MEDS: ACETAMINOPHEN 325 MG TABLET 650 MG PO ×3 (00:35→20:44)
[2019-07-15] MEDS: INSULIN ASPART 100 UNIT/ML 10ML VIAL SUBCUT (00:48)
[2019-07-15] MEDS: SODIUM CHLORIDE 0.9% 500 ML IV (00:49)
[2019-07-15] MEDS: SODIUM CHLORIDE 0.9% 1,000 ML 125 ML IV ×2 (02:07→14:42)
[2019-07-15] MEDS: VANCOMYCIN 1,500 MG/300 ML FROZ.PIGGY 200 MG IV ×3 (02:07→17:07)
[2019-07-15] MEDS: INSULIN ASPART 100 UNIT/ML INSULN PEN SUBCUT ×4 (06:01→20:43)
[2019-07-15 07:26] LABS: Add Manual Diff / Slide Review NO; Basophils Absolute Auto 0 /uL (0-100); Basophils Percent Auto 0.1 % (0-2); Eosinophils Absolute Auto 0 /uL (0-450); Eosinophils Percent Auto 0.1 % (2-4); Hematocrit 37.2 % (41-53); Hemoglobin 12.6 g/dL (13.5-17.5); Lymphocytes Absolute Auto 1400 /uL (1100-4500); Lymphocytes Percent Auto 7.4 % (25-40); Mean Corpuscular HGB Conc 33.8 % (30-36); Mean Corpuscular Volume 82.9 fL (80-100); Monocytes Absolute Auto 1400 /uL (0-900); Monocytes Percent Auto 7.6 % (3-14); Neutrophils Absolute Auto 15800 /uL (1500-7000); Neutrophils Percent Auto 84.8 % (50-75); Platelet Count 370 X10^3/uL (150-400); Red Blood Cell Count 4.49 X10^6/uL (4.5-5.9); Red Cell Distribution Width 12.8 % (11.6-14.8); White Blood Cell Count 18.7 X10^3/uL (4.5-11.0)
[2019-07-15 07:37] LABS: Alanine Aminotransferase 23 IU/L (<50); Albumin 3.2 g/dL (3.5-5.0); Albumin Globulin Ratio 0.9 (1.0-2.8); Alkaline Phosphatase 124 U/L (38-126); Aspartate Aminotransferase 19 IU/L (17-59); Bilirubin Total 0.6 mg/dL (0.2-1.3); Blood Urea Nitrogen 9 mg/dL (9-20); Calcium 8.2 mg/dL (8.4-10.2); Carbon Dioxide 15 mmol/L (22-32); Chloride 107 mmol/L (98-107); Cholesterol 128 mg/dL (140-199); Estimated Glomerular Filt Rate > 60.0 mL/min (>60); Globulin 3.7 g/dL (1.7-4.1); Glucose 300 mg/dL (70-100); HDL Cholesterol 15 mg/dL (40-60); HEMOLYSIS < 15 (0-50); LDL Cholesterol Calculated 93 mg/dL (<100); Magnesium 1.8 mg/dL (1.6-2.3); Potassium 3.9 mmol/L (3.4-5.1); Sodium 136 mmol/L (137-145); Total Protein 6.9 g/dL (6.3-8.2); Triglycerides 98 mg/dL (35-150)
[2019-07-15 07:52] LABS: Procalcitonin 0.11 ng/mL (<0.5)
[2019-07-15 08:14] LABS: TSH w/ Reflex to FT4 1.72 uIU/mL (0.47-4.68)
[2019-07-15] MEDS: INSULIN REGULAR 100 UNIT/ML 3 ML VIAL IV (08:22)
--- NOTE | 2019-07-15 09:29 | SUR.OPER ---
Supine on padded OR bed, head on pillow, arms secured on padded arm boards at <90 degrees abduction, legs uncrossed, safety belt at thigh, tape over blanket over lower legs. [place] roll under left side.
--- NOTE | 2019-07-15 09:42 | PC.NURSE ---
Addendum entered by Quin Phipps R.N. 07/15/19 11:34: Received patient from RN CARDIOVASCULAR ICUSHIRIN Evans at 1045. Pt awake and alert, denies pain. Dressing C/D/I to left axilla. Last CBG 197. Family in room. Original Note: Day Shift Pt to OR at 0900. 5 units regular insular IV given per MD order prior to surgery. CBGs reviewed with Nathan CARPIO.
[2019-07-15] MEDS: BACITRACIN IRR (09:54)
[2019-07-15] MEDS: SODIUM CHLORIDE IRR (09:54)
--- NOTE | 2019-07-15 09:55 | PM.OP.1 ---
Operative Date/Time/Diagnoses Date of procedure: 07/15/19 Time of procedure: 09:55 Pre-op diagnosis: Left axillary hidradenitis with huge abscess Post-op diagnosis: same Procedure & Clinicians Procedure: Incision drainage and debride Selvin of left axillary abscess Same procedure as scheduled: Yes Surgeon: Will Murillo Click Yes if Unassisted: Yes Anesthesia Type: General Operative Notes Findings: Grapefruit size left axillary abscess with significant soft tissue necrosis Closure Type: not applicable Specimen(s): other (Cultures and sensitivity of left axillary abscess and abscess cavity wall for histopathology) Estimated Blood Loss (mL): 50 Procedure in detail: The patient was properly identified during surgical pause he was given a general anesthetic using LMA. He was prepped and draped in a sterile fashion exposure the left axilla. Patient had a grapefruit sized abscess in the left axilla which was opened horizontally and purulence it fluid exuded from the wound across the table under pressure. This fluid was cultured for aerobes and anaerobes. The cavity was explored and necrotic tissue was removed and sent for histology. The wound was irrigated with 2 L of bacitracin containing saline. It was debrided with a moist laparotomy sponges until fresh tissue was encountered throughout. This abscess extends up to the chest wall encompassing all margins of the axilla. After satisfactory hemostasis was achieved with the Bovie I then packed the wound with almost a whole bottle of half-inch iodoform gauze. Sterile dressing was applied. He tolerated this procedure very well. Complications: none Post-operative Condition: stable Disposition: ICU
[2019-07-15] MEDS: HYDROMORPHONE 2 MG INJ IV (10:25)
--- NOTE | 2019-07-15 10:53 | SUR.PHASEI ---
Pt transferred directly to ICU from the OR. VS stable. Drsg CDI upon arrival, small amount of shadow drainage noted distal corner upon discharge. VS stable. Patient reported 4/10 axilla pain, medicated with Dilaudid. CBG checked twice, medicated with 5 u Regular insulin at [address] Romero's order to give the rest of the insulin if patient's CBG was higher than 180. CBG rechecked at 1040 and was 197. Report given to Nasra. Call light within reach. IV saline locked.
[2019-07-15] MEDS: VANCOMYCIN TROUGH 1 REQUEST MISC (11:47)
[2019-07-15 12:12] LABS: Vancomycin Trough < 5.0 ug/mL (10-20)
--- NOTE | 2019-07-15 12:20 | P.PN_ITS ---
Subjective Subjective Date Patient Seen: 07/15/19 Interval history: Jermain Mcgovern is a 28-year-old male with a past medical history significant for hypertension and hidradenitis suppurativa who presented to the ED for worsening left axillary abscess. The patient is resting in bed comfortably. He is immediately postoperative in mildly somnolent due to anesthesia. The patient reports that his left axillary pain has improved but that he has not moved his arm much. He endorses thirst and mildly dry mouth. He has no other complaints and denies headache, shortness of breath, chest pain, abdominal pain, nausea, vomiting, fever, chills, dysuria, diarrhea or constipation. He has not voided postoperatively. He has not had a bowel movement since admission and a bowel regimen has been implemented. He requests a work note prior to discharge. Exam Vital Signs (past 8 hours): - 07/15/19 06:07 07/15/19 07:00 07/15/19 08:27 Temperature 98.5 F 98.8 F Pulse Rate 95 H 98 H Respiratory Rate 18 27 H Blood Pressure 137/76 152/86 H Pulse Oximetry 98 97 97 07/15/19 08:42 07/15/19 09:53 07/15/19 09:55 Temperature 98.6 F Pulse Rate 95 H 106 H 105 H Respiratory Rate 15 18 Blood Pressure 140/87 149/79 H Pulse Oximetry 96 96 07/15/19 09:59 07/15/19 10:00 07/15/19 10:06 Temperature 98.6 F Pulse Rate 103 H 101 H 105 H Respiratory Rate 16 16 15 Blood Pressure 149/79 H 147/81 H Pulse Oximetry 96 96 97 07/15/19 10:10 07/15/19 10:20 07/15/19 10:29 Temperature Pulse Rate 100 H 101 H 100 H Respiratory Rate 11 L 14 19 Blood Pressure 154/89 H 133/98 H 143/81 H Pulse Oximetry 96 98 96 07/15/19 10:39 07/15/19 11:00 Temperature Pulse Rate 100 H 104 H Respiratory Rate 23 14 Blood Pressure 143/78 H 123/78 Pulse Oximetry 97 96 Oxygen Delivery Method Room Air Oxygen Flow Rate 0 Narrative Exam Narrative: General: Young gentleman lying in bed and in no acute distress, well-developed, well-nourished, appropriately interactive. HEENT: Normocephalic, atraumatic. External ears without defect. Pupils equal, round, and reactive to light. Anicteric sclerae, moist conjunctivae, and no lid lag. Oropharynx free of erythema and cobble stoning with moist mucosa. Neck: Supple with full range of motion. No jugular venous distension. No lymphadenopathy or thyromegaly. Cardiovascular: Regular rhythm, tachycardic, without murmurs, rubs, or gallops appreciated. Pulmonary: Clear to auscultation bilaterally without crackles, wheezes, or rhonchi. Normal respiratory effort with no use of accessory muscles. Abdomen: Soft, obese, bowel sounds present, nontender, nondistended. No hepatosplenomegaly or masses appreciated. Extremities: No clubbing, cyanosis, or edema. Left axilla with dressing in place C/D/I without surrounding erythema or edema. Small hidradenitis suppurativa of right axilla and on waistline. Neurological: Cranial nerves grossly intact. Psychiatric: Normal mood and affect. Alert and oriented to person, place, and time. Objective Labs Result Diagrams: 07/15/19 07:17 07/15/19 07:17 Labs: Laboratory Results - last 24 hr 07/14/19 07/14/19 07/14/19 10:11 10:11 11:22 WBC RBC Hgb Hct MCV MCH MCHC RDW Plt Count Neut % (Auto) Lymph % (Auto) [place] % (Auto) Eos % (Auto) Baso % (Auto) Neut # (Auto) Lymph # (Auto) [place] # (Auto) Eos # (Auto) Baso # (Auto) Sodium Potassium Chloride Carbon Dioxide BUN Creatinine Estimated GFR BUN/Creatinine Ratio Glucose Hemoglobin A1c 11.0 H Lactate Calcium Magnesium Total Bilirubin AST ALT Alkaline Phosphatase Total Protein Albumin Globulin Albumin/Globulin Ratio Triglycerides Cholesterol LDL Cholesterol, Calc HDL Cholesterol Procalcitonin TSH Urine RBC None seen Urine WBC None seen Urine Bacteria None seen Hyaline Casts 1-5/lpf Granular Casts 5-10/lpf Urine Mucus 1+ H Ur Culture Indicated? Cult not indicated U Random Total Protein Urine Creatinine Protein/Creatinin Ratio Nasal Screen MRSA (PCR) Vancomycin Trough Ketones 5.82 H 07/14/19 07/14/19 07/14/19 11:22 13:41 15:11 WBC RBC Hgb Hct MCV MCH MCHC RDW Plt Count Neut % (Auto) Lymph % (Auto) [place] % (Auto) Eos % (Auto) Baso % (Auto) Neut # (Auto) Lymph # (Auto) [place] # (Auto) Eos # (Auto) Baso # (Auto) Sodium 137 Potassium 4.6 Chloride 105 Carbon Dioxide 14 L BUN 10 Creatinine 0.50 L Estimated GFR > 60.0 BUN/Creatinine Ratio 20.0 Glucose 338 H Hemoglobin A1c Lactate Calcium 9.1 Magnesium Total Bilirubin AST ALT Alkaline Phosphatase Total Protein Albumin Globulin Albumin/Globulin Ratio Triglycerides Cholesterol LDL Cholesterol, Calc HDL Cholesterol Procalcitonin TSH Urine RBC Urine WBC Urine Bacteria Hyaline Casts Granular Casts Urine Mucus Ur Culture Indicated? U Random Total Protein 125 H Urine Creatinine 40.1 Protein/Creatinin Ratio 3.11 Nasal Screen MRSA (PCR) Negative for mrsa Vancomycin Trough Ketones 07/14/19 07/15/19 07/15/19 15:11 07:17 07:17 WBC 18.7 H RBC 4.49 L Hgb 12.6 L Hct 37.2 L MCV 82.9 MCH 28.0 MCHC 33.8 RDW 12.8 Plt Count 370 Neut % (Auto) 84.8 H Lymph % (Auto) 7.4 L [place] % (Auto) 7.6 Eos % (Auto) 0.1 L Baso % (Auto) 0.1 Neut # (Auto) 38138 H Lymph # (Auto) 1400 [place] # (Auto) 1400 H Eos # (Auto) 0 Baso # (Auto) 0 Sodium Potassium Chloride Carbon Dioxide BUN Creatinine Estimated GFR BUN/Creatinine Ratio Glucose Hemoglobin A1c Lactate 0.9 Calcium Magnesium Total Bilirubin AST ALT Alkaline Phosphatase Total Protein Albumin Globulin Albumin/Globulin Ratio Triglycerides Cholesterol LDL Cholesterol, Calc HDL Cholesterol Procalcitonin 0.11 TSH Urine RBC Urine WBC Urine Bacteria Hyaline Casts Granular Casts Urine Mucus Ur Culture Indicated? U Random Total Protein Urine Creatinine Protein/Creatinin Ratio Nasal Screen MRSA (PCR) Vancomycin Trough Ketones 07/15/19 07/15/19 07/15/19 07:17 07:17 11:22 WBC RBC Hgb Hct MCV MCH MCHC RDW Plt Count Neut % (Auto) Lymph % (Auto) [place] % (Auto) Eos % (Auto) Baso % (Auto) Neut # (Auto) Lymph # (Auto) [place] # (Auto) Eos # (Auto) Baso # (Auto) Sodium 136 L Potassium 3.9 Chloride 107 Carbon Dioxide 15 L BUN 9 Creatinine 0.50 L Estimated GFR > 60.0 BUN/Creatinine Ratio 18.0 Glucose 300 H Hemoglobin A1c Lactate Calcium 8.2 L Magnesium 1.8 Total Bilirubin 0.6 AST 19 ALT 23 Alkaline Phosphatase 124 Total Protein 6.9 Albumin 3.2 L Globulin 3.7 Albumin/Globulin Ratio 0.9 L Triglycerides 98 Cholesterol 128 L LDL Cholesterol, Calc 93 HDL Cholesterol 15 L Procalcitonin TSH 1.72 Urine RBC Urine WBC Urine Bacteria Hyaline Casts Granular Casts Urine Mucus Ur Culture Indicated? U Random Total Protein Urine Creatinine Protein/Creatinin Ratio Nasal Screen MRSA (PCR) Vancomycin Trough < 5.0 L Ketones Assessment & Plan Assessment & Plan narrative: Jermain Mcgovern is a 28-year-old male with a past medical history significant for hypertension and hidradenitis suppurativa who presented to the ED for worsening left axillary abscess. 1. Left axillary abscess, secondary to infected hidradenitis suppurativa, present on admission. Active. -Patient presented with enlarging left axillary abscess consistent with infected hidradenitis suppurativa. Patient does not have organ dysfunction or meet sepsis criteria. qSOFA 0. -Previous wound culture from 07/06/2019 grew MRSA resistant to clindamycin and erythromycin. -Initial WBC 20.7 and procalcitonin 0.17. Lactic acid normal at 1.2. Continue to trend WBC and procalcitonin daily which are trending down. -Blood cultures x2 have no growth to date. -Continue to monitor closely on telemetry. -Ordered alternating acetaminophen 650 mg every 6 hours as needed for pain and ketorolac 30 mg IV every 6 hours as needed for pain. -Received 1 L of NS in ED. Continued IV fluids until adequately hydrated then discontinued. -Received vancomycin 1500 mg IV x1 in ED. Continue vancomycin with dosing per pharmacist. If patient's infectious markers are not improving consider broadening antibiotic to gram-negative coverage. -Consulted General surgery, Dr. Murillo, who perform I&D this morning. We appreciate his time and care of the patient. Abscess culture pending. Continue postoperative pain and management per surgery. 2. Newly diagnosed diabetes mellitus type 2 with hyperglycemia and mild anion gap metabolic acidosis, present on admission. Anion gap metabolic acidosis resolved. -Patient initially presented with glucose of 379, ketones 5.82, and mild anion gap metabolic acidosis 20. Anion gap closed now 14. -Hemoglobin A1c 11.0%. -Received regular insulin 5 units IV x1 in ED. Patient has received significant amount of regular insulin preoperatively (20 units) and intraoperatively (35 units). -Patient is insulin naive so started lower dose basal insulin initially. Plan to slowly titrate up on basal insulin to better control baseline blood glucose levels and increased from 7 units to 15 units daily at bedtime. Consider starting metformin at time of discharge. -Continue ACHS blood glucose checks and medium-dose correctional scale insulin. Goal blood glucose 140-180. -Continue carbohydrate consistent diet. -Ordered dietitian consult which is pending and unavailable on the weekends. 3. Hypertension, chronic, present on admission. Stable. -Patient reports he previously was on losartan then just got lazy and stopped taking the medication. -Restarted losartan 25 mg daily which was initially held postoperatively due to risk of intraoperative hypotension. Ordered labetalol 10 mg IV every 6 hours as needed for SBP > 180 mmHg. Disposition: Patient likely to discharge in 1-2 days depending on improvement in infection and abscess culture identification and sensitivities. Quality VTE Deep Vein Thrombosis/Pulmonary Embolism Present on Admission: No
[2019-07-15] MEDS: LOSARTAN 25 MG TABLET PO (14:23)
[2019-07-15] MEDS: GABAPENTIN 600 MG TABLET PO ×2 (14:24→20:43)
[2019-07-15] MEDS: INSULIN GLARGINE 100 UNIT/ML 3ML PEN 15 UNIT SUBCUT (20:42)
[2019-07-15] MEDS: HEPARIN 5,000 UNIT/ML VIAL 5000 UNIT SUBCUT (20:45)
[2019-07-16] VITALS (10 sets, daily range): BP systolic 135–164; BP diastolic 77–99; PULSE 81–91; RESP 13–20; TEMP 36.1–36.8; O2SAT 96–100
[2019-07-16] MEDS: KETOROLAC 30 MG/ML VIAL IV ×2 (00:27→06:42)
[2019-07-16] MEDS: VANCOMYCIN 1,500 MG/300 ML FROZ.PIGGY 200 MG IV ×4 (02:08→23:16)
[2019-07-16 05:23] LABS: Add Manual Diff / Slide Review NO; Basophils Absolute Auto 100 /uL (0-100); Basophils Percent Auto 0.5 % (0-2); Eosinophils Absolute Auto 100 /uL (0-450); Eosinophils Percent Auto 0.9 % (2-4); Hemoglobin 12.5 g/dL (13.5-17.5); Lymphocytes Absolute Auto 2200 /uL (1100-4500); Lymphocytes Percent Auto 17.1 % (25-40); Mean Corpuscular HGB Conc 34.7 % (30-36); Mean Corpuscular Hemoglobin 28.4 PG (26-34); Mean Corpuscular Volume 81.9 fL (80-100); Monocytes Absolute Auto 900 /uL (0-900); Monocytes Percent Auto 7.2 % (3-14); Neutrophils Absolute Auto 9600 /uL (1500-7000); Neutrophils Percent Auto 74.3 % (50-75); Platelet Count 357 X10^3/uL (150-400); Red Cell Distribution Width 12.9 % (11.6-14.8)
[2019-07-16 05:59] LABS: Alanine Aminotransferase 23 IU/L (<50); Albumin 3.1 g/dL (3.5-5.0); Albumin Globulin Ratio 0.9 (1.0-2.8); Alkaline Phosphatase 124 U/L (38-126); Aspartate Aminotransferase 22 IU/L (17-59); Bilirubin Total 0.4 mg/dL (0.2-1.3); Blood Urea Nitrogen 7 mg/dL (9-20); Calcium 8.6 mg/dL (8.4-10.2); Carbon Dioxide 23 mmol/L (22-32); Chloride 103 mmol/L (98-107); Estimated Glomerular Filt Rate > 60.0 mL/min (>60); Globulin 3.5 g/dL (1.7-4.1); Glucose 285 mg/dL (70-100); HEMOLYSIS < 15 (0-50); Magnesium 1.7 mg/dL (1.6-2.3); Potassium 3.6 mmol/L (3.4-5.1); Sodium 138 mmol/L (137-145); Total Protein 6.6 g/dL (6.3-8.2)
[2019-07-16 06:14] LABS: Procalcitonin 0.08 ng/mL (<0.5)
--- NOTE | 2019-07-16 07:49 | CM.DANOTE ---
Late Entry from yesterday 07/15/19: Patient is a 28 year old male who was admitted to ICU on 07/14/19 for cellullitis. Pt has [employer] for insurance and his PCP is not established but pt goes to [facility]. EMR was reviewed. Per MD, surgeon consulted and pt to have an I&D yesterday for his abscess. Pt has rare dx of Hidradenitis which causes regular abscesses that he typically can alleviate by using heat compresses. Pt has hx of amputated toe and now new dx of diabetes. Per RN, pt tolerated I&D well and has supportive mother and sig other bedside and no concerns at this time. SW met briefly with pt and explained role and he confirms that he lives in [place] with his girlfriend and is Independent with ADL's at baseline and has discussed with MD the importance of not going just to the [facility] but to establish with a PCP to follow closely with his new dx of diabetes and pt very agreeable to establish with a doctor to follow him in outpt setting. Pt preference is to d/c home with family support and does not anticipate any needs. Plan: SW to follow for likely pt d/c home with family when stable and to confirm no IV-Abx needed at d/c. JOSE Cruz Discharge Planning/Care Management CM Discharge Assessment Start: 07/16/19 07:48 Freq: Status: Active Protocol: Document 07/16/19 07:48 BF (Rec: 07/16/19 07:49 BF [id number]) Discharge Planning Assessment Assigned Shipping Room Supervisor JOSE Chawla Advance Directives? No Advance Directives on File No History Provided By Patient,Significant Other, Medical Record Has Patient been admitted in last 30 No days? Prior Living Arrangements House Household Members significant other Type of transporation used prior to Drives own vehicle admit Independent with ADL's Yes Is patient alert and oriented? Yes Caregiver for Another No Comment Likely home pending I&D Barriers to Discharge No Discharge Plan Home Transportation Arrangement Mother and Sig Other bedside and can provide transport home at d/c Additional Comment Waiting for I&D completion and confirm no IV-Abx needed at d /c. Review Status In Process Please Provide Date Initial DC 07/15/19 Assessment Was Performed Next Review Type Continued Stay Review
[2019-07-16] MEDS: ACETAMINOPHEN 325 MG TABLET 650 MG PO ×3 (09:02→21:01)
[2019-07-16] MEDS: GABAPENTIN 600 MG TABLET PO ×3 (09:02→21:01)
[2019-07-16] MEDS: HEPARIN 5,000 UNIT/ML VIAL 5000 UNIT SUBCUT ×2 (09:02→21:01)
[2019-07-16] MEDS: INSULIN ASPART 100 UNIT/ML INSULN PEN SUBCUT ×4 (09:03→21:05)
[2019-07-16] MEDS: LOSARTAN 25 MG TABLET PO (09:03)
[2019-07-16 10:40] LABS: Vancomycin Trough 5.3 ug/mL (10-20)
--- NOTE | 2019-07-16 12:29 | DIET.PN ---
Dietary Note Assessment: Mr. Quan is a 28 yom admitted w/ cellulitis underarm bactrim. He had surgery for I & D on 07/15/19). He was recently discharged from the ED w/ a growing abscess in the beginning of the month. He complains of loss of appetite for the past week and intermittent N/V/D. Since admission he has been newly diagnosed diabetes mellitus type 2 with hyperglycemia and mild anion gap metabolic acidosis, present on admission. Anion gap metabolic acidosis resolved. He initially presented with glucose of 379, ketones 5.82, and mild anion gap metabolic acidosis 20. Anion gap closed now 14. He has a hemoglobin A1c 11.0%. I spoke with Dr. Leonard on this patient this a.m. He has received a significant amount of regular insulin including preoperatively (20 units) and intraoperatively (35 units). He reports plans to go home on lantus and possibly novolog. HT: 170.18 cm WT: 97.2 kg AdjBW: 78.5 kg BMI: 33.6 (overweight class III) Labs: A1c: 11.0% Gluc: 300, 285 Cr: 0.5 Alb: 3.1 Chol: 128 HDL: 15 MNA: 14 Bryan: 23 Nutrition Diagnosis: Altered nutrition related laboratory values r/t impaired glucose metabolism and endocrine dysfunction aeb increased plasma glucose and A1c levels, reports of estimated intake of foods high in overall excess of calorie and carbohydrates. Interventions: 1. Briefly discussed diabetes goals for FBG and PPG as well as goal for A1c. Provided handout on correlation between current A1c and blood glucose. 2. Discussed current dietary habits and reviewed dietary goals for glucose control specifically carbohydrate containing foods and carbohydrate counting. Handouts provided. 3. Discussed importance of monitoring BG. Pt states he is knowledgeable on glucometer use. Recommend RX for glucometer and strips to text FBG and PPG each meal until PPG under 180. 4. Discussed diabetes program with pt and family. Agreeable this education is important for understanding of DX and how to manage. Recommend referral to or [facility] for full Diabetes Self-Management Education (DSME) program. Diet Order: CCD (3) EER: 2300 kcal @ 30cal/kg (AdjBW) ; Pro: 115g @ 1.2 g/kg BW (1.5g/kg AdjBW) Monitoring/Evaluations: Wt, PO's, blood glucose, outpatient referral for DSME.
--- NOTE | 2019-07-16 14:04 | PC.NURSE ---
Pt reports pain to LUE 0/10 at rest and 3/10 with strenuous activity. Well controlled with PRN toradol and apap. Reports increased pain with dsg change. He is ambulating to the BR independently with steady gait. Dsg has remained CDI. Reviewed insulin regimen with pt and educated to use of insulin and blood sugar monitoring. Pt verbalizes understanding. States he is somewhat knowledgeable re DM due to mult family members having same dx. Pt able to dial up correct dose of novolog and administer with excellent technique. Written and verbal dietary info given by detention deputy. Written info on DM, novolog, lantus given. Awaiting hospitalist on rounds to define BG goals and insulin dosing prior to providing formal education. Supportive mom and fiance at bedside.
--- NOTE | 2019-07-16 16:01 | P.PN_ITS ---
Subjective Subjective Interval history: Jermain Mcgovern is a 28-year-old male with a past medical history significant for hypertension and hidradenitis suppurativa who presented to the ED for worsening left axillary abscess. The patient is resting in bed comfortably. The patient continues to have left axillary pain related to his abscess now status post I&D which is controlled with ketorolac and tylenol. He has no other complaints and denies headache, shortness of breath, chest pain, abdominal pain, nausea, vomiting, fever, chills, dysuria, diarrhea or constipation. He is voiding and eliminating without difficulty. He is up ambulating without assistance. Exam Vital Signs (past 8 hours): - 07/16/19 08:30 07/16/19 12:00 Temperature 97 F L Pulse Rate 84 Respiratory Rate 18 Blood Pressure 153/99 H Pulse Oximetry 100 98 Oxygen Delivery Method Room Air Oxygen Flow Rate 0 Narrative Exam Narrative: General: Young gentleman lying in bed and in no acute distress, well-developed, well-nourished, appropriately interactive. HEENT: Normocephalic, atraumatic. External ears without defect. Pupils equal, round, and reactive to light. Anicteric sclerae, moist conjunctivae, and no lid lag. Oropharynx free of erythema and cobble stoning with moist mucosa. Neck: Supple with full range of motion. No jugular venous distension. No lymphadenopathy or thyromegaly. Cardiovascular: Regular rhythm, tachycardic, without murmurs, rubs, or gallops appreciated. Pulmonary: Clear to auscultation bilaterally without crackles, wheezes, or rhonchi. Normal respiratory effort with no use of accessory muscles. Abdomen: Soft, obese, bowel sounds present, nontender, nondistended. No hepatosplenomegaly or masses appreciated. Extremities: No clubbing, cyanosis, or edema. Left axilla with dressing in place C/D/I without surrounding erythema or edema. Small hidradenitis suppurativa of right axilla and on waistline. Neurological: Cranial nerves grossly intact. Psychiatric: Normal mood and affect. Alert and oriented to person, place, and time. Objective Labs Result Diagrams: 07/17/19 04:35 07/16/19 04:50 Labs: Laboratory Results - last 24 hr 07/16/19 07/16/19 07/16/19 04:50 04:50 04:50 WBC 13.0 H RBC 4.40 L Hgb 12.5 L Hct 36.0 L MCV 81.9 MCH 28.4 MCHC 34.7 RDW 12.9 Plt Count 357 Neut % (Auto) 74.3 Lymph % (Auto) 17.1 L [place] % (Auto) 7.2 Eos % (Auto) 0.9 L Baso % (Auto) 0.5 Neut # (Auto) 9600 H Lymph # (Auto) 2200 [place] # (Auto) 900 Eos # (Auto) 100 Baso # (Auto) 100 Sodium 138 Potassium 3.6 Chloride 103 Carbon Dioxide 23 BUN 7 L Creatinine 0.50 L Estimated GFR > 60.0 BUN/Creatinine Ratio 14.0 Glucose 285 H Calcium 8.6 Magnesium 1.7 Total Bilirubin 0.4 AST 22 ALT 23 Alkaline Phosphatase 124 Total Protein 6.6 Albumin 3.1 L Globulin 3.5 Albumin/Globulin Ratio 0.9 L Procalcitonin 0.08 Vancomycin Trough 07/16/19 09:30 WBC RBC Hgb Hct MCV MCH MCHC RDW Plt Count Neut % (Auto) Lymph % (Auto) [place] % (Auto) Eos % (Auto) Baso % (Auto) Neut # (Auto) Lymph # (Auto) [place] # (Auto) Eos # (Auto) Baso # (Auto) Sodium Potassium Chloride Carbon Dioxide BUN Creatinine Estimated GFR BUN/Creatinine Ratio Glucose Calcium Magnesium Total Bilirubin AST ALT Alkaline Phosphatase Total Protein Albumin Globulin Albumin/Globulin Ratio Procalcitonin Vancomycin Trough 5.3 L Assessment & Plan Assessment & Plan narrative: Jermain Mcgovern is a 28-year-old male with a past medical history significant for hypertension and hidradenitis suppurativa who presented to the ED for worsening left axillary abscess. 1. Left axillary abscess, secondary to infected hidradenitis suppurativa, present on admission. Active. -Patient presented with enlarging left axillary abscess consistent with infected hidradenitis suppurativa. Patient does not have organ dysfunction or meet sepsis criteria. qSOFA 0. -Previous wound culture from 07/06/2019 grew MRSA resistant to clindamycin and erythromycin. -Initial WBC 20.7 and procalcitonin 0.17. Lactic acid normal at 1.2. Continue to trend WBC and procalcitonin daily which are trending down. -Blood cultures x2 have no growth to date. -Continue to monitor closely on telemetry. -Continue pain control with alternating acetaminophen 650 mg every 6 hours as needed for pain and ketorolac 30 mg IV every 6 hours as needed for pain. -Received 1 L of NS in ED. Continued IV fluids until adequately hydrated then discontinued. -Received vancomycin 1500 mg IV x1 in ED. Continue vancomycin with dosing per pharmacist. Likely to discharge on Bactrim to finish 7 day course of antibiotics. -Consulted General surgery, Dr. Murillo, who perform I&D this morning. We appreciate his time and care of the patient. Abscess culture pending. Continue postoperative pain and management per surgery. 2. Newly diagnosed diabetes mellitus type 2 with hyperglycemia and mild anion gap metabolic acidosis, present on admission. Anion gap metabolic acidosis resolved. -Patient initially presented with glucose of 379, ketones 5.82, and mild anion gap metabolic acidosis 20. Anion gap closed now 14. -Hemoglobin A1c 11.0%. -Received regular insulin 5 units IV x1 in ED. Patient has received significant amount of regular insulin preoperatively (20 units) and intraoperatively (35 units). -Patient is insulin naive so started lower dose basal insulin initially. Contin ue to slowly titrate up on basal insulin to better control baseline blood glucose levels and increased now to 20 units daily at bedtime. Plan to start metformin tomorrow now that infection is treated. -Continue ACHS blood glucose checks and high-dose correctional scale insulin. Goal blood glucose 140-180. -Continue carbohydrate consistent diet. -Consulted dietitian and appreciate her recommendations. 3. Hypertension, chronic, present on admission. Stable. -Patient reports he previously was on losartan then just got lazy and stopped taking the medication. -Continue losartan increased from 25 mg to 50 mg daily for better blood pressure control. Ordered labetalol 10 mg IV every 6 hours as needed for SBP > 180 mmHg. Disposition: Patient likely to discharge in tomorrow once abscess culture identification and sensitivities result. Quality VTE Deep Vein Thrombosis/Pulmonary Embolism Present on Admission: No
--- NOTE | 2019-07-16 16:18 | CM.DPC ---
DCP continued: EMR reviewed: Patients insurance [employer] called today to discuss patient need for a PCP following patients new diagnosis. [employer] has a case management program to work with patients to help them establish health care providers, Patient was assigned Peggy at [phone] ext: [phone]. CM met with patient at bedside with patients mother and fiance were both present at time of meeting. CM explained role and discussed insurance commissioner and gave the patient the contact information. CM explained the importance of having a PCP and especially now with patients new dx of DM. Patient will need follow up care and insulin management and f/u wound care. Patient stated they will call Insurance CM tomorrow to find a PCP provider. D/C plan: to D/C home when medically stable with mother and finance. Dr. Leonard will be putting in orders for patient to have out patient wound care following d/c. Patient stated concern with what the cost would be for OP wound care. CM told patient to f/u with insurance claims processor who should be able to answer those questions more thoroughly. Phyllis Mcfadden RN.
--- NOTE | 2019-07-16 17:24 | PM.PNPO.1 ---
Subjective Subjective Date Patient Seen: 07/16/19 Time Patient Seen: 17:24 Interval history: No acute overnight events. Improved left axilla pain sp I&D. Exam Vital Signs (past 8 hours): - 07/16/19 12:00 07/16/19 16:00 Temperature 97 F L 97.3 F L Pulse Rate 84 91 H Respiratory Rate 18 20 Blood Pressure 153/99 H 147/82 H Pulse Oximetry 98 Oxygen Delivery Method Room Air Oxygen Flow Rate 0 Narrative Exam Narrative: General adult male alert oriented no acute distress Left axilla dressings clean dry intact. Dressing taken down and wound examined minimal cellulitis wound is clean clean with minimal fibrinous debris. Objective Labs Result Diagrams: 07/16/19 04:50 07/16/19 04:50 Labs: Laboratory Results - last 24 hr 07/16/19 07/16/19 07/16/19 04:50 04:50 04:50 WBC 13.0 H RBC 4.40 L Hgb 12.5 L Hct 36.0 L MCV 81.9 MCH 28.4 MCHC 34.7 RDW 12.9 Plt Count 357 Neut % (Auto) 74.3 Lymph % (Auto) 17.1 L [place] % (Auto) 7.2 Eos % (Auto) 0.9 L Baso % (Auto) 0.5 Neut # (Auto) 9600 H Lymph # (Auto) 2200 [place] # (Auto) 900 Eos # (Auto) 100 Baso # (Auto) 100 Sodium 138 Potassium 3.6 Chloride 103 Carbon Dioxide 23 BUN 7 L Creatinine 0.50 L Estimated GFR > 60.0 BUN/Creatinine Ratio 14.0 Glucose 285 H Calcium 8.6 Magnesium 1.7 Total Bilirubin 0.4 AST 22 ALT 23 Alkaline Phosphatase 124 Total Protein 6.6 Albumin 3.1 L Globulin 3.5 Albumin/Globulin Ratio 0.9 L Procalcitonin 0.08 Vancomycin Trough 07/16/19 09:30 WBC RBC Hgb Hct MCV MCH MCHC RDW Plt Count Neut % (Auto) Lymph % (Auto) [place] % (Auto) Eos % (Auto) Baso % (Auto) Neut # (Auto) Lymph # (Auto) [place] # (Auto) Eos # (Auto) Baso # (Auto) Sodium Potassium Chloride Carbon Dioxide BUN Creatinine Estimated GFR BUN/Creatinine Ratio Glucose Calcium Magnesium Total Bilirubin AST ALT Alkaline Phosphatase Total Protein Albumin Globulin Albumin/Globulin Ratio Procalcitonin Vancomycin Trough 5.3 L Assessment & Plan Post-op Postoperative Procedures: Procedures Operation Date: 07/15/19 09:00 Actual Procedures Side Surgeon p Incision and Drainage Wound/General Left Will Murillo MD Postoperative status narrative: This is a 28-year-old male diabetic with a left axilla abscess postoperative day 1 status post I&D. Doing significantly better after drainage of the abscess. Sepsis resolving white blood cell count down trending to 13 today and afebrile. -follow up wound culture -wet-to-dry dressing twice daily while in hospital will need outpatient wound care/home health/family instruction -convert to p.o. antibiotics of continues to clinically improve tomorrow -glycemic control Quality VTE Deep Vein Thrombosis/Pulmonary Embolism Present on Admission: No
--- NOTE | 2019-07-16 19:44 | PC.NURSE ---
Evening Shift Note: Pt was initially complaining of pain, up to 7/10. Given tylenol and gabapentin with pain down to 2/10. Pt's wound is covered with dressing, changed this am, CDI. Pt otherwise tolerating diet, regular BMs, voiding without difficulty. Denies nausea. BG 263, given SS insulin, insulin orders increased per MD orders. Pt otherwise with no complaints, will continue to monitor, notify MD with changes.
[2019-07-16] MEDS: INSULIN GLARGINE 100 UNIT/ML 3ML PEN 20 UNIT SUBCUT (21:05)
[2019-07-17] MEDS: KETOROLAC 30 MG/ML VIAL IV ×2 (04:07→11:41)
[2019-07-17 04:20] VITALS: BP 165/92; PULSE 90; RESP 16; TEMP 36.3; O2SAT 95
[2019-07-17 04:47] LABS: Add Manual Diff / Slide Review NO; Basophils Absolute Auto 100 /uL (0-100); Basophils Percent Auto 0.7 % (0-2); Eosinophils Absolute Auto 100 /uL (0-450); Eosinophils Percent Auto 1.5 % (2-4); Hematocrit 35.7 % (41-53); Hemoglobin 12.4 g/dL (13.5-17.5); Lymphocytes Absolute Auto 2200 /uL (1100-4500); Lymphocytes Percent Auto 22.3 % (25-40); Mean Corpuscular HGB Conc 34.9 % (30-36); Mean Corpuscular Hemoglobin 28.2 PG (26-34); Mean Corpuscular Volume 80.8 fL (80-100); Monocytes Absolute Auto 800 /uL (0-900); Monocytes Percent Auto 7.8 % (3-14); Neutrophils Absolute Auto 6600 /uL (1500-7000); Neutrophils Percent Auto 67.7 % (50-75); Platelet Count 390 X10^3/uL (150-400); Red Blood Cell Count 4.42 X10^6/uL (4.5-5.9); Red Cell Distribution Width 12.9 % (11.6-14.8); White Blood Cell Count 9.7 X10^3/uL (4.5-11.0)
[2019-07-17] MEDS: VANCOMYCIN 1,500 MG/300 ML FROZ.PIGGY 200 MG IV (05:14)
--- NOTE | 2019-07-17 07:30 | P.DS_ITS ---
History of Present Illness History of Present Illness Chief complaint: cellulitis lf underarm on Bactrim DS x5days Narrative: Written by myself Dr. Horacio Quan the is a 28-year-old male with a past medical history significant for hypertension and hidradenitis suppurativa who presented to the ED for worsening left axillary abscess. The patient reports that he was seen in the emergency department on 07/06/2019 for a ?growing abscess consistent with infected hidradenitis suppurativa for which he was placed on antibiotics with clindamycin and discharged home. He received a phone call at home several days later to inform him of his wound culture results which were positive for MRSA and that his antibiotic was changed from clindamycin to Bactrim. He followed up with his primary care physician at the walk-in clinic who believed his left arm abscess was improving. He completed the course of Bactrim but noticed several days later that his abscess was growing in size and becoming slightly more painful. He reports significant pain with any movement. He has very little pain at rest. He has had several other abscesses in his groin, buttock, and back likely tax compliance representative of hidradenitis. He usually manages these conservatively with hot compresses, Epsom salt soaks, and lets them drain on their own without extraction. He endorses intermittent headache especially in the mornings, mild nausea and vomiting this morning and 3 days ago, and exquisite tenderness to palpation of left axillary abscess. He has no other complaints and denies lightheadedness or dizziness, vision changes, palpitations, chest pain, shortness of breath, abdominal pain, current nausea or vomiting, fever, chills, dysuria, diarrhea or constipation. He also has intermittent diarrhea. ED course: Previous CT of left axilla demonstrated possible phlegmon versus early abscess. No repeat imaging performed today. WBC 20.7 with 93% PMNs otherwise normal CBC. CMP demonstrated mildly low sodium with anion gap metabolic acidosis of 20 likely due to hyperglycemia with glucose 379. Lactic acid normal at 1.2. General surgery was consulted and plans to perform I and D in the OR tomorrow morning. Patient was admitted inpatient for further evaluation and treatment. Discharge Providers Provider Date of admission: 07/14/19 12:10 Discharge Date: 07/17/19 Consults: 07/14/19 11:43 Consult to General Surgery Stat Comment: Consulting Provider: Will Murillo Reason for consultation: abscess Has provider been notified: Yes 07/15/19 16:03 Consult to Wound Care Routine Comment: irrigate and repack wound daily Consulting Provider: [facility] 07/15/19 17:10 Consult to Dietitian, Adult Routine Comment: Reason For Exam: Newly diagnosed DM Discharge provider: Leticia Leonard DO Summary Hospital Course Discharge Diagnosis: 1. Left axillary abscess, secondary to infected hidradenitis suppurativa, present on admission. Resolved. 2. Newly diagnosed diabetes mellitus type 2 with hyperglycemia and mild anion gap metabolic acidosis, present on admission. Anion gap metabolic acidosis resolved. 3. Hypertension, chronic, present on admission. Stable. Hospital Course: Jermain Mcgovern is a 28-year-old male with a past medical history significant for hypertension and hidradenitis suppurativa who presented to the ED for worsening left axillary abscess. 1. Left axillary abscess, secondary to infected hidradenitis suppurativa, present on admission. Resolved. -Patient presented with enlarging left axillary abscess consistent with infected hidradenitis suppurativa. Patient does not have organ dysfunction or meet sepsis criteria. qSOFA 0. -Previous wound culture from right axillary hidradenitis (not current infection in left axilla) on 07/06/2019 grew MRSA resistant to clindamycin and erythromycin. -Initial WBC 20.7 and procalcitonin 0.17. Lactic acid normal at 1.2. Continued to trend WBC and procalcitonin daily now normal. -Blood cultures x2 have no growth to date. -Continued to monitor closely on telemetry. -Continued pain control with alternating acetaminophen 650 mg every 6 hours as needed for pain and ketorolac 30 mg IV every 6 hours as needed for pain, as well as, gabapentin 600 mg 3 times daily. -Received 1 L of NS in ED. Continued IV fluids until adequately hydrated then discontinued. -Received vancomycin 1500 mg IV x1 in ED. Continued vancomycin with dosing per pharmacist. Discharged on Bactrim DS twice daily for 4 days to finish 7 day course of antibiotics. -Consulted General surgery, Dr. Murillo, who perform I&D this morning. We appreciate his time and care of the patient. Left axillary abscess culture grew MSSA. Continued postoperative pain and management per surgery. -Recommended dermatology referral for continued management of hidradenitis suppurativa. -Patient is scheduled with wound care clinic for continued wound management and general surgery follow-up. 2. Newly diagnosed diabetes mellitus type 2 with hyperglycemia and mild anion gap metabolic acidosis, present on admission. Anion gap metabolic acidosis resolved. -Patient initially presented with glucose of 379, ketones 5.82, and mild anion gap metabolic acidosis 20. Anion gap closed now 14. -Hemoglobin A1c 11.0%. -Received regular insulin 5 units IV x1 in ED. Patient has received significant amount of regular insulin preoperatively (20 units) and intraoperatively (35 units). -Patient is insulin naive so started lower dose basal insulin initially. Continued to slowly titrate up on basal insulin with Lantus to better control baseline blood glucose levels. Discharged on Lantus 25 units daily at bedtime and metformin 1000 mg twice daily. Goal blood glucose 140-180. Discharged with glucometer kit and instructions to keep glucose log to bring to all his outpatient appointments. -Continued ACHS blood glucose checks and high-dose correctional scale insulin. Did not discharge on short-acting insulin. -Continued carbohydrate consistent/heart healthy diet. -Consulted dietitian and appreciate her recommendations. -Recommended outpatient diabetic self-management education for new onset diabetes per PCP. -Spent several hours providing diabetic teaching and lifestyle modification including: Diet and exercise. -Nursing staff provided insulin, hyper and hypoglycemia teaching. 3. Hypertension, chronic, present on admission. Stable. -Patient reports he previously was on losartan then just got lazy and stopped taking the medication. -Restarted and continued losartan 50 mg daily. Ordered labetalol 10 mg IV every 6 hours as needed for SBP > 180 mmHg. -Blood pressure continued to be mildly elevated with SBP in 140s to 150s possi aubree due to pain. Recommend close outpatient monitoring and addition of another antihypertensive if necessary. Exam Vital Signs (past 8 hours): - 07/16/19 23:45 07/17/19 04:20 Temperature 97.7 F 97.3 F L Pulse Rate 81 90 Respiratory Rate 14 16 Blood Pressure 164/94 H 165/92 H Pulse Oximetry 96 95 Oxygen Delivery Method Room Air Oxygen Flow Rate 0 Narrative Exam Narrative: General: Young gentleman sitting in bed and in no acute distress, well- developed, well-nourished, appropriately interactive. HEENT: Normocephalic, atraumatic. External ears without defect. Pupils equal, round, and reactive to light. Anicteric sclerae, moist conjunctivae, and no lid lag. Oropharynx free of erythema and cobble stoning with moist mucosa. Neck: Supple with full range of motion. No jugular venous distension. No lymphadenopathy or thyromegaly. Cardiovascular: Regular rhythm, tachycardic, without murmurs, rubs, or gallops appreciated. Pulmonary: Clear to auscultation bilaterally without crackles, wheezes, or rhonchi. Normal respiratory effort with no use of accessory muscles. Abdomen: Soft, obese, bowel sounds present, nontender, nondistended. No hepatosplenomegaly or masses appreciated. Extremities: No clubbing, cyanosis, or edema. Left axilla with deep wound with moderate milky brown drainage that was repacked and dressed C/D/I without surrounding erythema or edema. Small hidradenitis suppurativa of right axilla and on waistline. Neurological: Cranial nerves grossly intact. Psychiatric: Normal mood and affect. Alert and oriented to person, place, and time. Objective Labs Result Diagrams: 07/17/19 04:35 07/16/19 04:50 Labs: Laboratory Results - last 24 hr 07/16/19 07/17/19 09:30 04:35 WBC 9.7 RBC 4.42 L Hgb 12.4 L Hct 35.7 L MCV 80.8 MCH 28.2 MCHC 34.9 RDW 12.9 Plt Count 390 Neut % (Auto) 67.7 Lymph % (Auto) 22.3 L [place] % (Auto) 7.8 Eos % (Auto) 1.5 L Baso % (Auto) 0.7 Neut # (Auto) 6600 Lymph # (Auto) 2200 [place] # (Auto) 800 Eos # (Auto) 100 Baso # (Auto) 100 Vancomycin Trough 5.3 L Discharge Plan Discharge Plan Patient Disposition: Home Discharge comment: You are being discharged home. You had a left arm abscess secondary to hidradenitis supprativa which was incised and removed. You have been prescribed Bactrim for 4 additional days to complete a total of 7 day course of antibiotics. You have a scheduled appointment at the wound care clinic on 07/19/2019 at 11:00 a.m. Please follow-up at your scheduled a ppointment with a primary care provider regarding your hospitalization, new diagnosis of diabetes, hypertension, and to establish care. You have diabetes mellitus type 2. Your hemoglobin A1c was 11.0 % which is a three-month average of your blood glucose and based on this your average blood glucose level is estimated 300's all the time. You have been prescribed metformin 1000 mg twice daily to take with breakfast and dinner. Metformin may cause diarrhea but is usually self limited and will resolve within 2 weeks as your body gets used to the medication. You have also been prescribed Lantus which is long-acting insulin to lower your baseline blood glucose level 25 units daily at bedtime. You have been provided insulin teaching. You have also been prescribed a blood glucose monitoring system to check your blood glucose levels in the morning fasting before the 1st meal of the day and 2 hours after each meal (breakfast, lunch, and dinner). Your goal fasting blood glucose should be under 120 and your goal blood glucose 2 hours after meals is under 180. You were also prescribed glucose tabs (which are fast acting and do not last all day) to take if your blood glucose level gets too low usually less than 70 (normal blood glucose levels 70-100). Please try to implement lifestyle changes including diet and exercise as discussed. Start with small obtainable goals and work your way up. Remember the hand rule for dieting (fist= lean meat, out spread hand=vegetables, half of Palm= good carbohydrates). The [place] [employer] recommends 150 minutes of moderate intensity exercise per week if you are sedentary start with small obtainable goals and work your way up. Your losartan was increased to 50 mg daily to treat your high blood pressure. Recommend to have a referral to Dermatology to help manage your hidradenitis supprativa. You may take alternating Tylenol and ibuprofen as directed on the bottle for pain control. You have also been prescribed gabapentin 600 mg 3 times daily for pain control. Discharge Med Rec/Prescriptions Prescriptions: New acetaminophen 325 mg Tablet 650 mg PO Q6HR PRN (Reason: As Needed For Fever/Mild Pain) Qty: 30 RF: 0 gabapentin [Neurontin] 600 mg Tablet 600 mg PO TID Qty: 90 RF: 0 Lantus Solostar U-100 Insulin 100 unit/mL (3 mL) Insulin Pen 25 unit subcut BEDTIME Qty: 15 RF: 0 losartan 50 mg Tablet 50 mg PO DAILY Qty: 30 RF: 0 glucose 4 gram tablet,chewable 4 gram PO Q15M PRN (Reason: hypoglycemia) Qty: 30 RF: 0 (DME) blood-glucose meter [Glucocard Shine Meter Kit] Kit See Rx Instructions .ROUTE .MEDSUPPLY Qty: 1 RF: 0 sulfamethoxazole-trimethoprim [Bactrim DS] 800-160 mg tablet 1 tab PO BID Qty: 8 RF: 0 metformin [Glucophage] 500 mg Tablet 1,000 mg PO 0800,1700 Qty: 60 RF: 0 Changed ibuprofen 200 mg Tablet 600 mg PO PRN PRN (Reason: pain) Qty: 0 RF: 0 Discontinued losartan 25 mg Tablet 25 mg PO DAILY RF: 0 Follow up/Referrals: Oleg Ross MD [Physician] - 07/30/19 1:15 pm Stalin Morales MD [Physician] - 07/19/19 11:00 am (Please arrive 15 minutes early for check-in. [address] [place] [address] Located in [facility]) Provider Discharge Instructions Diet: Carb-consistent/Diabetic, Low-fat, Low-sodium and Low-cholesterol Skin/Wound/Dressing Care Report to your healthcare provider any signs of infection, such as:: chills, fever, night sweats, increased pain, unusual drainage and unusual redness Dressin. Wash your hands and apply gloves. 2. Remove current dressing and packing. 3. Cleanse with sterile normal saline if needed to remove excess drainage or loosen packing. 4. Loosely pack the wound with iodoform gauze. 5. Cover the wound with xtrasorb dressing. 6. Secure the dressing with tape and/or coban 7. Change the dressing once a day and as needed. Visit Report/Discharge Packet Instructions: The Mediterranean Diet and Good Health, Low-Carbohydrate Diet (Alternative Therapy), Type 2 Diabetes, DI for Hypoglycemia, How to Change a Wet-to-dry Wound Dressing, Metformin, DI for Incision and Drainage, [facility]: Wound Care, Insulin Glargine (By injection) Quality VTE Deep Vein Thrombosis/Pulmonary Embolism Present on Admission: No
[2019-07-17 08:30] VITALS: BP 163/102; PULSE 78; RESP 16; TEMP 36.2; O2SAT 99
[2019-07-17] MEDS: METFORMIN HCL 500 MG TABLET 1000 MG PO (08:43)
[2019-07-17] MEDS: HEPARIN 5,000 UNIT/ML VIAL 5000 UNIT SUBCUT (08:43)
[2019-07-17] MEDS: GABAPENTIN 600 MG TABLET PO (08:43)
[2019-07-17] MEDS: LOSARTAN 50 MG TABLET PO (08:43)
[2019-07-17] MEDS: INSULIN ASPART 100 UNIT/ML INSULN PEN SUBCUT ×2 (08:44→12:35)
[2019-07-17 11:07] LABS: Vancomycin Trough 8.6 ug/mL (10-20)
--- NOTE | 2019-07-17 11:24 | PM.PNPO.1 ---
Subjective Subjective Date Patient Seen: 07/17/19 Time Patient Seen: 11:24 Interval history: No acute overnight events. Minimal axillary pain. Exam Vital Signs (past 8 hours): - 07/17/19 04:20 07/17/19 08:30 Temperature 97.3 F L 97.1 F L Pulse Rate 90 78 Respiratory Rate 16 16 Blood Pressure 165/92 H 163/102 H Pulse Oximetry 95 99 Oxygen Delivery Method Room Air Oxygen Flow Rate 0 Narrative Exam Narrative: Gen-adult male no acute distress Chest: Left axilla dressing CDI, minimal tenderness Objective Labs Result Diagrams: 07/17/19 04:35 07/16/19 04:50 Labs: Laboratory Results - last 24 hr 07/17/19 07/17/19 04:35 07:35 WBC 9.7 RBC 4.42 L Hgb 12.4 L Hct 35.7 L MCV 80.8 MCH 28.2 MCHC 34.9 RDW 12.9 Plt Count 390 Neut % (Auto) 67.7 Lymph % (Auto) 22.3 L [place] % (Auto) 7.8 Eos % (Auto) 1.5 L Baso % (Auto) 0.7 Neut # (Auto) 6600 Lymph # (Auto) 2200 [place] # (Auto) 800 Eos # (Auto) 100 Baso # (Auto) 100 Vancomycin Trough 8.6 L Assessment & Plan Post-op Postoperative Procedures: Procedures Operation Date: 07/15/19 09:00 Actual Procedures Side Surgeon p Incision and Drainage Wound/General Left Will Murillo MD Postoperative status narrative: 28M diabetic POD 2 sp l axilla abscess drainage doing well. Ok to discharge -Dressing change with packing to left axilla once daily -FU ~2 weeks surgical clinic -PO antibiotics x 7 days Quality VTE Deep Vein Thrombosis/Pulmonary Embolism Present on Admission: No
[2019-07-17] MEDS: VANCOMYCIN 2,000 MG/400 ML PIGGYBACK 200 MG IV (11:41)
[2019-07-17] MEDS: ACETAMINOPHEN 325 MG TABLET 650 MG PO (11:41)
[2019-07-17 11:59] VITALS: BP 140/97; RESP 16
--- NOTE | 2019-07-17 14:10 | PC.NURSE ---
Addendum entered by Willie Sanchez R.N. 07/17/19 14:33: Pt states he has f/u appt with P[facility] on 07/24[facility]. Original Note: 1330- Dr Morales at bedside assessing wound. Dsg removed and measurements taken. VO to repack with iodoform gauze, cover with xtrasorb, and secure with tape/coban. F/u with wound care scheduled for 07/19. Dr. Morales instructs for packing to be changed by family member tomorrow. Educated pt's mom on packing and securing wound. Pt's mom provided return demonstration. Pt tolerated well.
--- NOTE | 2019-07-17 16:20 | PC.NURSE ---
Addendum entered by Nataliia Neri R.N. 07/17/19 16:34: 1634 - Dr. Leonard asked this nurse to call patient and make sure that they know to use the saline in the wound care very gently when cleaning wound. Patient called and is aware to use the saline gently in the wound. Original Note: 6520 - Patient discharged home. Patient's mother previously educated on day shift about wound care. Dr. Leonard extensively went over diabetes, insulin, diet, wound care, and followup. All discharge instructions and medications gone over in detail with patient and patient's mother. Patient states full understanding of all discharge instructions and medications. All paperwork and belongings sent with patient. Patient wheeled out of builing with all belongings by nursing staff.
== END 2019-07-17 16:20 | disposition home or self-care (01) | DRG 571 ==
LOC: ED 12:00 → AC 12:10 → ICU 12:57
PROVIDERS: Surgery; Admitting Provider Internal Medicine; Emergency Provider Emergency Medicine; Family Provider Physician Assistant; Visit Provider Internal Medicine
PROC: 0JB60ZZ Excision of Chest Subcutaneous Tissue and Fascia, Open Approach (ICD-10-PCS; principal; 2019-07-15 09:00)
DX: L02.412 Cutaneous abscess of left axilla (principal); E87.2 Acidosis; B95.62 Methicillin resistant Staphylococcus aureus infection as the cause of diseases classified elsewhere; L73.2 Hidradenitis suppurativa; E11.65 Type 2 diabetes mellitus with hyperglycemia; I10 Essential (primary) hypertension
CPT/HCPCS: 36415; 80048; 80053; 80061; 80202; 81003; 81015; 82009; 82570; 82962; 83036; 83605; 83735; 84145; 84156; 84443; 85025; 87040; 87070; 87075; 87077; 87147; 87186; 87205; 87797; 96365; 96366; 96375; 99284; 99285; C9113; J1170; J1644; J1885; J2250; J2405; J2704; J3010

== ENCOUNTER → 2019-07-19 11:05 | Outpatient (CLI) | payer BC, SELFPAY ==
[2019-07-14 14:02] VITALS: BMI 33.7
== END ==
PROVIDERS: Family Provider Physician Assistant; Visit Provider Family Medicine
DX: E11.628 Type 2 diabetes mellitus with other skin complications (principal); S41.102A Unspecified open wound of left upper arm, initial encounter
CPT/HCPCS: 11042; 99203; 99212

== ENCOUNTER → 2019-07-23 15:34 | Outpatient (CLI) | payer BC, SELFPAY ==
[2019-07-14 14:02] VITALS: BMI 33.7
== END ==
PROVIDERS: Family Provider Physician Assistant; Visit Provider Family Medicine
DX: S41.102A Unspecified open wound of left upper arm, initial encounter (principal)
CPT/HCPCS: 99213

== ENCOUNTER 2019-07-23 16:05 | Emergency (ER) | payer BC, SELFPAY ==
[2019-07-14 14:02] VITALS: BMI 33.7
[2019-07-23 16:20] VITALS: BP 164/102; PULSE 106; RESP 20; TEMP 37.3; O2SAT 99
--- NOTE | 2019-07-23 18:04 | PC.NURSE ---
Patient recently hospitalized for 4 days after surgical I&D of left armpit. Left armpit healing WNL, dressing intact from wound care. Patient states during his hospitalization patient had a smaller one rupture and drain in right armpit that appeared to be healing ok until last night. I just wanted to nip it in the butt, I don't want to end up in surgery again
--- NOTE | 2019-07-23 18:54 | ED_ITS ---
HPI - Skin/Abscess/Foreign Bdy General Chief complaint: Skin/Abscess/Foreign Body Stated complaint: CYST UNDER RIGHT ARM Time Seen by Provider: 07/23/19 18:03 Source: patient Mode of arrival: Ambulatory Limitations: no limitations History of Present Illness HPI narrative: 28-year-old nonsmoking male with history of hidradenitis suppurativa presents with a chief complaint of a painful warm, red lump in his right armpit which is consistent with prior infections. He states this is just flared up over the past few days. He is currently seeing wound care for evaluation of a very large abscess in his left axilla. He is not currently taking any antibiotics. He denies any fever, chills nor nausea or vomiting. He denies any spontaneous drainage MD complaint: abscess/boil Onset (ago): day(s) Tetanus up to date: yes Location: RUE Severity: moderate Quality: aching Pain Consistency: constant Relieving factors: rest Exacerbating factors: movement Associated symptoms: denies other symptoms Treatments prior to arrival: none Related Data Previous Rx's Medication Instructions Recorded acetaminophen 650 mg PO Q6HR PRN #30 tab 07/17/19 blood-glucose meter [Glucocard #1 each 07/17/19 Shine Meter Kit] gabapentin [Neurontin] 600 mg PO TID #90 tab 07/17/19 glucose 4 gram PO Q15M PRN #30 tab 07/17/19 ibuprofen 600 mg PO PRN PRN #0 tab 07/17/19 insulin glargine [Lantus Solostar 25 unit SUBCUT BEDTIME #15 ml 07/17/19 U-100 Insulin] losartan 50 mg PO DAILY #30 tab 07/17/19 metformin [Glucophage] 1,000 mg PO 0800,1700 #60 tab 07/17/19 sulfamethoxazole-trimethoprim 1 tab PO BID #8 tab 07/17/19 [Bactrim DS] doxycycline hyclate 100 mg PO BID #20 tab 07/23/19 Allergies Allergy/AdvReac Type Severity Reaction Status Date / Time cefaclor [From [facility]] Allergy Verified 07/14/19 14:09 Review of Systems Constitutional Constitutional: Denies chills, Denies fatigue, Denies fever(s), Denies frequent falls, Denies lethargy and Denies weakness Eyes Eyes: Denies change in vision, Denies eye discharge, Denies irritation and Denies loss of vision ENT Ears, Nose, Mouth, and Throat: Denies change in voice, Denies dizziness, Denies neck pain, Denies sore throat and Denies throat swelling Cardiovascular Cardiovascular: Denies chest pain, Denies irregular heart rhythm, Denies lightheadedness, Denies palpitations, Denies dyspnea, Denies dyspnea on exertion and Denies orthopnea Respiratory Respiratory: Denies cough, Denies dyspnea, Denies dyspnea on exertion and Denies wheezing Gastrointestinal Gastrointestinal: Denies abdominal pain, Denies change in bowel habits, Denies diarrhea, Denies nausea and Denies vomiting Genitourinary Genitourinary: Denies hematuria, Denies flank pain, Denies urinary incontinence and Denies urinary urgency Musculoskeletal Musculoskeletal: Denies back pain, Denies muscle weakness, Denies neck pain, Denies numbness and Denies tingling Integumentary/Breasts Skin/Breast: Denies pruritus, Reports erythema, Denies rash, Reports skin pain, Reports skin swelling and Denies wounds Neurologic Neurologic: Denies behavioral changes, Denies confusion, Denies dizziness, Denies frequent falls, Denies loss of vision, Denies numbness, Denies tingling and Denies weakness Psychiatric Psychiatric: Denies anxiety, Denies behavioral changes, Denies confusion, Denies depression, Denies homicidal ideation and Denies suicidal ideation Endocrine Endocrine: Denies fatigue, Denies flushing and Denies palpitations Hematologic/Lymphatic Hematologic/Lymphatic: Denies easy bruising Allergic/Immunologic Allergic/Immunologic: Denies urticaria, Denies throat swelling and Denies wheezing Patient History Medical History Amputated toe of right foot (Acute) HTN (hypertension) (Acute) Osteomyelitis of ankle and foot (Acute) Surgical History Hx of toe surgery (Acute) No pertinent past surgical history (Acute) S/P tonsillectomy (Acute) Family History Father Diabetes mellitus Hypertension Mother Benign neoplasm of abdomen Sister Diabetes mellitus Social History household members: significant other Smoking Status: Never smoker alcohol intake frequency: holidays/special occasions only Substance Use Type: does not use Exam Narrative Exam Narrative: GENERAL: [] year old patient appears stated age. Well-nourished, well-developed patient, in mild distress. HEAD: Atraumatic. Normocephalic. EYES: Pupils equal round and reactive. Extraocular motions intact. No scleral icterus. No injection or drainage. ENT: Nose without bleeding, purulent drainage. Throat without erythema, tonsillar hypertrophy or exudate. Airway patent. NECK: Trachea midline. Non tender CARDIOVASCULAR: Regular rate and rhythm without murmurs, gallops, or rubs. RESPIRATORY: Clear to auscultation. Breath sounds equal bilaterally. No wheezes, rales, or rhonchi. GASTROINTESTINAL: Abdomen soft, non-tender, nondistended. EXTREMITIES: No edema or joint tenderness. BACK: Nontender without deformity or crepitance. No flank tenderness. NEURO: AOx3. SKIN: Whom 1 x 3 cm fluctuant mass in right axilla consistent with abscess. No rash or erythema of visible areas otherwise Initial Vital Signs Initial Vital Signs: Vital Signs Temperature 99.1 F 07/23/19 16:20 Pulse Rate 106 H 07/23/19 16:20 Respiratory Rate 20 07/23/19 16:20 Blood Pressure 164/102 H 07/23/19 16:20 Pulse Oximetry 99 07/23/19 16:20 Procedures Abscess I/D Site: upper extremity Side (if applicable): right Local Anesthetic: lidocaine 1% and with bicarb Technique: incised with #11 blade Amount of fluid expressed (mL): 5 Irrigation: No Packing used?: none Course Orders Ordered: Discontinued Medications Lidocaine/Sodium Bicarbonate (Buffered Lidocaine 10 Ml Syr) 10 ml INJ NOW ONE Stop: 07/23/19 19:01 Last Admin: 07/23/19 19:27 Dose: 10 ml Documented by: SANYA Vital Signs Vital signs: Vital Signs - 8 hr 07/23/19 19:33 Pulse Rate 92 H Respiratory Rate 16 Blood Pressure 156/94 H Pulse Oximetry 98 Discharge Plan Departure Patient Disposition: Home Clinical Impression: Abscess of axilla, right Discharge Date/Time: 07/23/19 19:34 Instructions: DI for Skin Abscess Activity Restrictions/Additional Instructions: *You have been diagnosed with right axillary abscess *What to do: *Take medications as directed: Your prescriptions been electronically transmitted to [facility] in [place] at your request *Follow up with your primary care provider in 2-3 days, call for an appointment. Let them know you were seen in the Emergency Department and that we ask that you be seen in follow up *Return to ER if you should have any new, worsening or concerning symptoms Prescriptions: New doxycycline hyclate 100 mg tablet 100 mg PO BID Qty: 20 RF: 0 No Action acetaminophen 325 mg Tablet 650 mg PO Q6HR PRN (Reason: As Needed For Fever/Mild Pain) Qty: 30 RF: 0 gabapentin [Neurontin] 600 mg Tablet 600 mg PO TID Qty: 90 RF: 0 Lantus Solostar U-100 Insulin 100 unit/mL (3 mL) Insulin Pen 25 unit subcut BEDTIME Qty: 15 RF: 0 losartan 50 mg Tablet 50 mg PO DAILY Qty: 30 RF: 0 ibuprofen 200 mg Tablet 600 mg PO PRN PRN (Reason: pain) Qty: 0 RF: 0 glucose 4 gram tablet,chewable 4 gram PO Q15M PRN (Reason: hypoglycemia) Qty: 30 RF: 0 (DME) blood-glucose meter [Glucocard Shine Meter Kit] Kit See Rx Instructions .ROUTE .MEDSUPPLY Qty: 1 RF: 0 sulfamethoxazole-trimethoprim [Bactrim DS] 800-160 mg tablet 1 tab PO BID Qty: 8 RF: 0 metformin [Glucophage] 500 mg Tablet 1,000 mg PO 0800,1700 Qty: 60 RF: 0 Referrals: Will Murillo MD [Physician] -
[2019-07-23] MEDS: LIDO 1%/SOD BICARB 8.4% (10ML) 10 ML SYRINGE INJ (19:27)
[2019-07-23 19:33] VITALS: BP 156/94; PULSE 92; RESP 16; O2SAT 98
== END 2019-07-23 19:34 | disposition home or self-care (01) ==
PROVIDERS: Emergency Provider Emergency Medicine; Family Provider Physician Assistant
DX: L02.411 Cutaneous abscess of right axilla (principal)
CPT/HCPCS: 10060; 99283

== ENCOUNTER → 2019-07-26 13:29 | Outpatient (CLI) | payer BC, SELFPAY ==
[2019-07-14 14:02] VITALS: BMI 33.7
== END ==
PROVIDERS: Family Provider Physician Assistant; Visit Provider Family Medicine
DX: E11.628 Type 2 diabetes mellitus with other skin complications (principal); S41.102D Unspecified open wound of left upper arm, subsequent encounter
CPT/HCPCS: 99213

== ENCOUNTER → 2019-07-31 14:51 | Outpatient (CLI) | payer BC, SELFPAY ==
[2019-07-14 14:02] VITALS: BMI 33.7
== END ==
PROVIDERS: Family Provider Physician Assistant; Visit Provider Family Medicine
DX: E11.628 Type 2 diabetes mellitus with other skin complications (principal); S41.102D Unspecified open wound of left upper arm, subsequent encounter
CPT/HCPCS: 99213

== ENCOUNTER → 2019-08-10 14:04 | Outpatient (CLI) | payer BC, SELFPAY ==
[2019-07-14 14:02] VITALS: BMI 33.7
== END ==
PROVIDERS: Family Provider Physician Assistant; Visit Provider Family Medicine
DX: E11.628 Type 2 diabetes mellitus with other skin complications (principal); S41.102D Unspecified open wound of left upper arm, subsequent encounter
CPT/HCPCS: 99213

== ENCOUNTER → 2019-08-17 09:57 | Outpatient (CLI) | payer BC, SELFPAY ==
[2019-07-14 14:02] VITALS: BMI 33.7
== END ==
PROVIDERS: Family Provider Physician Assistant; Visit Provider Family Medicine
DX: E11.628 Type 2 diabetes mellitus with other skin complications (principal); S41.102D Unspecified open wound of left upper arm, subsequent encounter
CPT/HCPCS: 99213; 99214

== ENCOUNTER → 2019-08-24 13:40 | Outpatient (CLI) | payer BC, SELFPAY ==
[2019-07-14 14:02] VITALS: BMI 33.7
== END ==
PROVIDERS: Family Provider Physician Assistant; Visit Provider Family Medicine
DX: E11.628 Type 2 diabetes mellitus with other skin complications (principal); S41.102A Unspecified open wound of left upper arm, initial encounter
CPT/HCPCS: 17250

== ENCOUNTER → 2019-09-07 13:10 | Outpatient (CLI) | payer BC, SELFPAY ==
[2019-07-14 14:02] VITALS: BMI 33.7
== END ==
PROVIDERS: Family Provider Physician Assistant; Visit Provider Family Medicine
DX: E11.628 Type 2 diabetes mellitus with other skin complications (principal); S41.102A Unspecified open wound of left upper arm, initial encounter
CPT/HCPCS: 11042; 17250

== ENCOUNTER → 2019-09-11 08:56 | Outpatient (CLI) | payer BC, SELFPAY ==
[2019-07-14 14:02] VITALS: BMI 33.7
== END ==
PROVIDERS: Family Provider Physician Assistant; Visit Provider Family Medicine
DX: S41.102A Unspecified open wound of left upper arm, initial encounter (principal); E11.628 Type 2 diabetes mellitus with other skin complications
CPT/HCPCS: 17250

== ENCOUNTER → 2019-09-21 08:29 | Outpatient (CLI) | payer BC, SELFPAY ==
[2019-07-14 14:02] VITALS: BMI 33.7
== END ==
PROVIDERS: Family Provider Physician Assistant; Visit Provider Family Medicine
DX: E11.628 Type 2 diabetes mellitus with other skin complications (principal); S41.102A Unspecified open wound of left upper arm, initial encounter
CPT/HCPCS: 17250

== ENCOUNTER → 2019-09-28 09:50 | Outpatient (CLI) | payer BC, SELFPAY ==
[2019-07-14 14:02] VITALS: BMI 33.7
== END ==
PROVIDERS: Family Provider Physician Assistant; Visit Provider Family Medicine
DX: E11.628 Type 2 diabetes mellitus with other skin complications (principal); S41.102A Unspecified open wound of left upper arm, initial encounter
CPT/HCPCS: 11042

== ENCOUNTER → 2019-10-05 09:29 | Outpatient (CLI) | payer BC, SELFPAY ==
[2019-07-14 14:02] VITALS: BMI 33.7
== END ==
PROVIDERS: Family Provider Physician Assistant; Visit Provider Family Medicine
DX: E11.628 Type 2 diabetes mellitus with other skin complications (principal); S41.102A Unspecified open wound of left upper arm, initial encounter
CPT/HCPCS: 99213

== ENCOUNTER → 2019-10-19 10:52 | Outpatient (CLI) | payer BC, SELFPAY ==
[2019-07-14 14:02] VITALS: BMI 33.7
== END ==
PROVIDERS: Family Provider Physician Assistant; PCP Nurse Practitioner Gerontology; Referring Provider Surgery; Visit Provider Family Medicine
DX: E11.628 Type 2 diabetes mellitus with other skin complications (principal); S41.102A Unspecified open wound of left upper arm, initial encounter; Z79.4 Long term (current) use of insulin
CPT/HCPCS: 99212; 99213

== ENCOUNTER → 2019-11-09 11:03 | Outpatient (CLI) | payer BC, SELFPAY ==
[2019-07-14 14:02] VITALS: BMI 33.7
== END ==
PROVIDERS: Family Provider Physician Assistant; PCP Nurse Practitioner Gerontology; Referring Provider Nurse Practitioner Gerontology; Visit Provider Family Medicine
DX: E11.628 Type 2 diabetes mellitus with other skin complications (principal); S41.102A Unspecified open wound of left upper arm, initial encounter; Z79.4 Long term (current) use of insulin; Z91.19 Patient's noncompliance with other medical treatment and regimen
CPT/HCPCS: 99213

== ENCOUNTER → 2021-09-30 17:05 | Outpatient (CLI) | payer BC, SELFPAY ==
[2019-07-14 14:02] VITALS: BMI 33.7
[2021-09-30 17:28] LABS: COVID19 -Nasal RAPID POSITIVE (Negative)
== END ==
PROVIDERS: PCP Nurse Practitioner Gerontology; Referring Provider Physician Assistant; Visit Provider Physician Assistant
DX: U07.1 COVID-19 (principal)
CPT/HCPCS: 87635

== ENCOUNTER 2021-09-30 17:21 | Emergency (ER) | payer BC, SELFPAY ==
[2019-07-14 14:02] VITALS: BMI 33.7
[2021-09-30] VITALS (11 sets, daily range): BP systolic 133–151; BP diastolic 76–81; PULSE 85–116; RESP 12–24; TEMP 36.3; O2SAT 94–98; BMI 34.9
--- NOTE | 2021-09-30 18:07 | DI.CT.S_ITS ---
PROCEDURE: CT ABDOMEN PELVIS W CON INDICATIONS: COVID; abdominal pain, vomiting, diarrhea, rule out bowel obstruction and volvulus TECHNIQUE: After the administration of intravenous contrast, axial sections acquired from the lung bases to the pubic symphysis. Coronal and sagittal reformats were performed. For radiation dose reduction, the following was used: automated exposure control, adjustment of mA and/or kV according to patient size. COMPARISON: None. FINDINGS: Image quality: Excellent. Lung bases: Numerous patchy airspace opacities in both lungs. Heart: No significant findings. ABDOMEN: Liver: No mass or acute finding. Gallbladder: Normal. Biliary ducts: Nondilated. Pancreas: Unremarkable. Spleen: Normal size and appearance. Adrenal Glands: No nodule or mass. Kidneys and Ureters: No hydronephrosis or hydroureter. No urinary tract calculus. Stomach and Bowel: Stomach, small bowel loops, and colon are unremarkable. Peritoneum: No abnormal intraperitoneal fluid. No free air. Ventral Wall: No hernias. Abdominal Nodes: No retroperitoneal or mesenteric adenopathy by size criteria. Vessels: Aorta and inferior vena cava are normal in size. PELVIS: Pelvic Organs: Unremarkable. Bladder: Unremarkable. Pelvic Nodes: No enlarged lymph nodes. Miscellaneous: No hernias are seen. Bones: Unremarkable. IMPRESSION: No acute finding in the abdomen or pelvis. Numerous patchy airspace opacities in both lungs consistent with COVID-19 pneumonia/pneumonitis. Dictated by: Brett Espino M.D. on 09/30/2021 at 18:40 Approved by: Brett Espino M.D. on 09/30/2021 at 18:45
--- NOTE | 2021-09-30 18:11 | ED_ITS ---
HPI - Nausea/Vomiting/Diarrhea <JOCELINE WinslowP - Last Filed: 10/01/21 12:13> General Chief complaint: Nausea/Vomiting/Diarrhea Stated complaint: stomach issues, body pain, vomiting Time Seen by Provider: 09/30/21 17:58 Source: patient Mode of arrival: Ambulatory History of Present Illness HPI Narrative: 30-year-old male with history of poorly-controlled diabetes, hypertension on losartan/hydrochlorothiazide presents to the emergency department complaining of vomiting, diarrhea, and belching fecal odor for the last 2 weeks which has been worsening over the last 4 days. Patient has a history of diabetes and hypertension and states his blood sugars have been in the low 200s, and his blood pressure he does not monitor at home but he has been taking his losartan and hydrochlorothiazide. Patient states he had a T-max of 99? F for 2 days 4 days ago. Other than that he has had no fever. He complains of a headache, states he has been taking Imodium for his diarrhea without much improvement, he denies being on any antibiotics. He states he has been unable to keep anything down however yesterday he was able to keep to him and cheese sandwiches down with water. Patient is COVID vaccinated x1, denies any sore throat, congestion, chest pain, shortness of breath, cough, chest pain, wheezing, or difficulty breathing. Related Data Previous Rx's Medication Instructions Recorded acetaminophen 325 mg tablet 650 mg PO Q6HR PRN #30 tab 07/17/19 blood-glucose meter (Glucocard #1 each 07/17/19 Shine Meter Kit) gabapentin 600 mg tablet 600 mg PO TID #90 tab 07/17/19 (Neurontin) glucose 4 gram chewable tablet 4 gram PO Q15M PRN #30 tab 07/17/19 ibuprofen 200 mg tablet 600 mg PO PRN PRN #0 tab 07/17/19 insulin glargine 100 unit/mL (3 25 unit (0.25 mL) SUBCUT BEDTIME 07/17/19 mL) subcutaneous pen (Lantus #15 ml Solostar U-100 Insulin) losartan 50 mg tablet 50 mg PO DAILY #30 tab 07/17/19 metformin 500 mg tablet 1,000 mg PO 0800,1700 #60 tab 07/17/19 (Glucophage) sulfamethoxazole 800 1 tab PO BID #8 tab 07/17/19 mg-trimethoprim 160 mg tablet (Bactrim DS) doxycycline hyclate 100 mg tablet 100 mg PO BID #20 tab 07/23/19 loperamide 2 mg tablet 2 mg PO Q6H PRN #20 tab 09/30/21 omeprazole 20 mg capsule,delayed 20 mg PO DAILY #20 cap 09/30/21 release ondansetron 4 mg disintegrating 4 mg PO Q8H PRN #10 tab 09/30/21 tablet Allergies Allergy/AdvReac Type Severity Reaction Status Date / Time cefaclor [From [facility]] Allergy Verified 09/30/21 17:26 Review of Systems <NEETU Winslow - Last Filed: 10/01/21 12:13> Review of Systems Narrative: General: denies fever, chills Head/Neck: denies headache, neck pain Eyes: denies visual changes, eye pain Cardio: denies chest pain, palpitations Respiratory: denies shortness of breath, cough GI: denies abdominal pain, endorses nausea, vomiting, and diarrhea for 2 weeks : denies dysuria, hematuria MSK: denies joint pain, muscle weakness Skin: denies rash, itching Neuro: denies numbness, tingling Patient History <NEETU Winslow - Last Filed: 10/01/21 12:13> Medical History (Updated 09/30/21 @ 19:49 by NEETU Winslow) Amputated toe of right foot HTN (hypertension) Osteomyelitis of ankle and foot Surgical History Hx of toe surgery No pertinent past surgical history S/P tonsillectomy Family History Father Diabetes mellitus Hypertension Mother Benign neoplasm of abdomen Sister Diabetes mellitus Social History household members: significant other Smoking Status: Never smoker Smoking Status: Never smoker alcohol intake frequency: holidays/special occasions only Substance Use Type: does not use Exam <NEETU Winslow - Last Filed: 10/01/21 12:13> Narrative Exam Narrative: Independently reviewed vitals signs and nursing notes. General: Awake, alert, nontoxic, no cardiorespiratory distress Head/Neck: Atraumatic, neck full range of motion Eyes: EOMI, conjunctiva normal Nose: nares patent, no rhinorrhea Mouth/Throat: moist mucus membranes, posterior pharynx normal, no oral lesions Cardio: Regular rate and rhythm, no peripheral edema Respiratory: respirations unlabored without wheezing, stridor, or rales. No retractions. GI: Abdomen soft, nontender to palpation patient endorses pain and burning in his epigastrium but is nontender to palpation MSK: Moves all extremities, neurovascularly intact Skin: Normal capillary refill, no rash Neuro: Normal speech and cognition, normal gait Initial Vital Signs Initial Vital Signs: Vital Signs Temperature 97.4 F L 09/30/21 17:21 Pulse Rate 116 H 09/30/21 17:21 Respiratory Rate 13 09/30/21 17:21 Blood Pressure 137/81 09/30/21 17:21 Pulse Oximetry 98 09/30/21 17:21 <Lam Leblanc DO - Last Filed: 10/02/21 00:31> Initial Vital Signs Initial Vital Signs: Vital Signs Temperature 97.4 F L 09/30/21 17:21 Pulse Rate 116 H 09/30/21 17:21 Respiratory Rate 13 09/30/21 17:21 Blood Pressure 137/81 09/30/21 17:21 Pulse Oximetry 98 09/30/21 17:21 Course <JOCELINE WinslowP - Last Filed: 10/01/21 12:13> Orders Ordered: Discontinued Medications Famotidine (Famotidine 20 Mg/2 Ml Vial) 20 mg IV NOW [facility] Last Admin: 09/30/21 19:01 Dose: 20 mg Documented by: LORENZO Sodium Chloride (Normal Saline 0.9%) 1,000 mls @ 1,000 mls/hr IV BOLUS ONE Stop: 09/30/21 18:51 Last Infusion: 09/30/21 20:06 Dose: 0 mls/hr Documented by: [email or web address] Admin: 09/30/21 18:14 Dose: 1,000 mls/hr Documented by: LORENZO Sodium Chloride (Normal Saline 0.9%) 500 mls @ 1,000 mls/hr IV BOLUS PRN PRN Reason: Fluid replacement Lactated Ringer's (Lactated Ringers) 1,000 mls @ 1,000 mls/hr IV BOLUS ONE Stop: 09/30/21 19:43 Last Infusion: 09/30/21 21:33 Dose: 0 mls/hr Documented by: Infusion: 09/30/21 20:08 Dose: 1,000 mls/hr Documented by: Infusion: 09/30/21 19:13 Dose: 0 mls/hr Documented by: Admin: 09/30/21 19:02 Dose: 1,000 mls/hr Documented by: LORENZO Ketorolac Tromethamine (Ketorolac 30 Mg/Ml Vial) 15 mg IV NOW ONE Stop: 09/30/21 19:46 Last Admin: 09/30/21 19:58 Dose: 15 mg Documented by: DIVINA Loperamide HCl (Loperamide 2 Mg Capsule) 4 mg PO NOW ONE Stop: 09/30/21 19:50 Last Admin: 09/30/21 19:58 Dose: 4 mg Documented by: DIVINA Ondansetron HCl (Ondansetron 4 Mg/2 Ml Inj) 4 mg IV NOW ONE Stop: 09/30/21 17:48 Last Admin: 09/30/21 18:14 Dose: 4 mg Documented by: LORENZO Ondansetron HCl (Ondansetron 4 Mg Odt Prepack) 1 bottle MISC SEEINSTR ONE Stop: 09/30/21 19:50 Last Admin: 09/30/21 19:58 Dose: 1 bottle Documented by: DIVINA Vital Signs Vital signs: Vital Signs - 8 hr 09/30/21 17:21 09/30/21 17:56 09/30/21 18:00 Temperature 97.4 F L Pulse Rate 116 H 100 H 105 H Respiratory Rate 13 12 Blood Pressure 137/81 133/76 Pulse Oximetry 98 98 98 09/30/21 18:30 09/30/21 19:00 Temperature Pulse Rate 95 H 94 H Respiratory Rate Blood Pressure Pulse Oximetry 95 97 <Lam Leblanc DO - Last Filed: 10/02/21 00:31> Orders Ordered: Discontinued Medications Famotidine (Famotidine 20 Mg/2 Ml Vial) 20 mg IV NOW NIKA Last Admin: 09/30/21 19:01 Dose: 20 mg Documented by: [email or web address] Sodium Chloride (Normal Saline 0.9%) 1,000 mls @ 1,000 mls/hr IV BOLUS ONE Stop: 09/30/21 18:51 Last Infusion: 09/30/21 20:06 Dose: 0 mls/hr Documented by: [email or web address] Admin: 09/30/21 18:14 Dose: 1,000 mls/hr Documented by: [email or web address] Sodium Chloride (Normal Saline 0.9%) 500 mls @ 1,000 mls/hr IV BOLUS PRN PRN Reason: Fluid replacement Lactated Ringer's (Lactated Ringers) 1,000 mls @ 1,000 mls/hr IV BOLUS ONE Stop: 09/30/21 19:43 Last Infusion: 09/30/21 21:33 Dose: 0 mls/hr Documented by: [email or web address] Infusion: 09/30/21 20:08 Dose: 1,000 mls/hr Documented by: [email or web address] Infusion: 09/30/21 19:13 Dose: 0 mls/hr Documented by: [email or web address] Admin: 09/30/21 19:02 Dose: 1,000 mls/hr Documented by: LORENZO Ketorolac Tromethamine (Ketorolac 30 Mg/Ml Vial) 15 mg IV NOW ONE Stop: 09/30/21 19:46 Last Admin: 09/30/21 19:58 Dose: 15 mg Documented by: DIVINA Loperamide HCl (Loperamide 2 Mg Capsule) 4 mg PO NOW ONE Stop: 09/30/21 19:50 Last Admin: 09/30/21 19:58 Dose: 4 mg Documented by: DIVINA Ondansetron HCl (Ondansetron 4 Mg/2 Ml Inj) 4 mg IV NOW ONE Stop: 09/30/21 17:48 Last Admin: 09/30/21 18:14 Dose: 4 mg Documented by: LORENZO Ondansetron HCl (Ondansetron 4 Mg Odt Prepack) 1 bottle MISC SEEINSTR ONE Stop: 09/30/21 19:50 Last Admin: 09/30/21 19:58 Dose: 1 bottle Documented by: DIVINA Vital Signs Vital signs: Vital Signs - 8 hr 09/30/21 17:21 09/30/21 17:56 09/30/21 18:00 Temperature 97.4 F L Pulse Rate 116 H 100 H 105 H Respiratory Rate 13 12 Blood Pressure 137/81 133/76 Pulse Oximetry 98 98 98 09/30/21 18:30 09/30/21 19:00 Temperature Pulse Rate 95 H 94 H Respiratory Rate Blood Pressure Pulse Oximetry 95 97 MDM - Nausea/Vomiting/Diarrhea <NEETU Winslow - Last Filed: 10/01/21 12:13> Lab Data Result diagrams: 09/30/21 18:13 09/30/21 18:13 Labs: Lab Results 09/30/21 09/30/21 09/30/21 Range/Units 18:13 18:13 18:13 WBC 7.8 (4.5-11.0) X10^3/uL RBC 4.86 (4.5-5.9) X10^6/uL Hgb 14.1 (13.5-17.5) g/dL Hct 39.2 L (41-53) % MCV 80.7 (80-100) fL MCH 29.0 (26-34) PG MCHC 35.9 (30-36) % RDW 12.9 (11.6-14.8) % Plt Count 215 (150-400) X10^3/uL Neut % (Auto) 71.8 (50-75) % Lymph % (Auto) 17.6 L (25-40) % [place] % (Auto) 10.1 (3-14) % Eos % (Auto) 0.1 L (2-4) % Baso % (Auto) 0.4 (0-2) % Neut # (Auto) 5600 (5789-3350) /uL Lymph # (Auto) 1400 (7571-9463) /uL [place] # (Auto) 800 (0-900) /uL Eos # (Auto) 0 (0-450) /uL Baso # (Auto) 0 (0-100) /uL PT 13.3 H (10.1-12.7) SECONDS INR 1.2 (0.9-1.3) APTT 32 (26.4-36.2) SECONDS D-Dimer (<230) ng/mL VBG pH (7.33-7.43) VBG pCO2 (45-50) mmHg VBG pO2 (35-45) mmHg VBG HCO3 (23-28) mmol/L VBG Total CO2 (24-29) mmol/L VBG O2 Saturation (70-75) % VBG Base Excess (0-4) mmol/L Sodium 133 L (137-145) mmol/L Potassium 3.7 (3.4-5.1) mmol/L Chloride 91 L (98-107) mmol/L Carbon Dioxide 31 (22-32) mmol/L BUN 21 H (9-20) mg/dL Creatinine 0.97 (0.66-1.25) mg/dL Estimated GFR > 60.0 (>60) mL/min BUN/Creatinine Ratio 21.6 (6-22) Glucose 343 H (70-100) mg/dL Lactate (0.7-2.1) mmol/L Calcium 9.9 (8.4-10.2) mg/dL Total Bilirubin 0.9 (0.2-1.3) mg/dL AST 27 (17-59) IU/L ALT 20 (<50) IU/L Alkaline Phosphatase 66 (38-126) U/L Total Protein 8.1 (6.3-8.2) g/dL Albumin 4.5 (3.5-5.0) g/dL Globulin 3.6 (1.7-4.1) g/dL Albumin/Globulin Ratio 1.3 (1.0-2.8) Lipase 25 (23-300) U/L Urine RBC (0-5/HPF) Urine WBC (0-5/HPF) Urine Bacteria (None) Ur Culture Indicated? Micro UA Comment Ketones (<0.27) mmol/L 09/30/21 09/30/21 09/30/21 Range/Units 18:13 18:13 18:13 WBC (4.5-11.0) X10^3/uL RBC (4.5-5.9) X10^6/uL Hgb (13.5-17.5) g/dL Hct (41-53) % MCV (80-100) fL MCH (26-34) PG MCHC (30-36) % RDW (11.6-14.8) % Plt Count (150-400) X10^3/uL Neut % (Auto) (50-75) % Lymph % (Auto) (25-40) % [place] % (Auto) (3-14) % Eos % (Auto) (2-4) % Baso % (Auto) (0-2) % Neut # (Auto) (9655-0987) /uL Lymph # (Auto) (2534-3542) /uL [place] # (Auto) (0-900) /uL Eos # (Auto) (0-450) /uL Baso # (Auto) (0-100) /uL PT (10.1-12.7) SECONDS INR (0.9-1.3) APTT (26.4-36.2) SECONDS D-Dimer < 200 (<230) ng/mL VBG pH (7.33-7.43) VBG pCO2 (45-50) mmHg VBG pO2 (35-45) mmHg VBG HCO3 (23-28) mmol/L VBG Total CO2 (24-29) mmol/L VBG O2 Saturation (70-75) % VBG Base Excess (0-4) mmol/L Sodium (137-145) mmol/L Potassium (3.4-5.1) mmol/L Chloride (98-107) mmol/L Carbon Dioxide (22-32) mmol/L BUN (9-20) mg/dL Creatinine (0.66-1.25) mg/dL Estimated GFR (>60) mL/min BUN/Creatinine Ratio (6-22) Glucose (70-100) mg/dL Lactate 1.1 (0.7-2.1) mmol/L Calcium (8.4-10.2) mg/dL Total Bilirubin (0.2-1.3) mg/dL AST (17-59) IU/L ALT (<50) IU/L Alkaline Phosphatase (38-126) U/L Total Protein (6.3-8.2) g/dL Albumin (3.5-5.0) g/dL Globulin (1.7-4.1) g/dL Albumin/Globulin Ratio (1.0-2.8) Lipase (23-300) U/L Urine RBC (0-5/HPF) Urine WBC (0-5/HPF) Urine Bacteria (None) Ur Culture Indicated? Micro UA Comment Ketones 1.81 H (<0.27) mmol/L 09/30/21 09/30/21 Range/Units 19:10 20:16 WBC (4.5-11.0) X10^3/uL RBC (4.5-5.9) X10^6/uL Hgb (13.5-17.5) g/dL Hct (41-53) % MCV (80-100) fL MCH (26-34) PG MCHC (30-36) % RDW (11.6-14.8) % Plt Count (150-400) X10^3/uL Neut % (Auto) (50-75) % Lymph % (Auto) (25-40) % [place] % (Auto) (3-14) % Eos % (Auto) (2-4) % Baso % (Auto) (0-2) % Neut # (Auto) (1092-7104) /uL Lymph # (Auto) (9803-6910) /uL [place] # (Auto) (0-900) /uL Eos # (Auto) (0-450) /uL Baso # (Auto) (0-100) /uL PT (10.1-12.7) SECONDS INR (0.9-1.3) APTT (26.4-36.2) SECONDS D-Dimer (<230) ng/mL VBG pH 7.47 H (7.33-7.43) VBG pCO2 41.1 L (45-50) mmHg VBG pO2 18 L (35-45) mmHg VBG HCO3 30 H (23-28) mmol/L VBG Total CO2 31 H (24-29) mmol/L VBG O2 Saturation 30 L (70-75) % VBG Base Excess 7.0 H (0-4) mmol/L Sodium (137-145) mmol/L Potassium (3.4-5.1) mmol/L Chloride (98-107) mmol/L Carbon Dioxide (22-32) mmol/L BUN (9-20) mg/dL Creatinine (0.66-1.25) mg/dL Estimated GFR (>60) mL/min BUN/Creatinine Ratio (6-22) Glucose (70-100) mg/dL Lactate (0.7-2.1) mmol/L Calcium (8.4-10.2) mg/dL Total Bilirubin (0.2-1.3) mg/dL AST (17-59) IU/L ALT (<50) IU/L Alkaline Phosphatase (38-126) U/L Total Protein (6.3-8.2) g/dL Albumin (3.5-5.0) g/dL Globulin (1.7-4.1) g/dL Albumin/Globulin Ratio (1.0-2.8) Lipase (23-300) U/L Urine RBC None seen (0-5/HPF) Urine WBC None seen (0-5/HPF) Urine Bacteria None seen (None) Ur Culture Indicated? Cult not indicated Micro UA Comment Microscopic normal Ketones (<0.27) mmol/L Point of Care Testing Glucose POC 246 Urine Dip Bedside Urine Glucose 1000 mg/dl Bedside Urine Bilirubin - Negative Bedside Urine Ketone +/- 5 Urine Specific [place] 1.010 Bedside Urine Occult Blood +/- Bedside Urine pH 6.0 Bedside Urine Protein - Negative Bedside Urine Urobilinogen - Negative Bedside Urine Nitrite - Negative Bedside Urine Leukocytes - Negative Esterase ABG Data ABG results: VBG is pH of 7.47, pCO2 of 41.1, PO2 of 18, base excess of 7, HC03 30.1, T CO2 31, sO2-30% Imaging Data CT scan - abdomen/pelvis: Radiologist's Impression: PROCEDURE:? CT ABDOMEN PELVIS W CON ? INDICATIONS:? COVID; abdominal pain, vomiting, diarrhea, rule out bowel obstruction and volvulus ? TECHNIQUE:? After the administration of intravenous contrast, axial sections acquired from the lung bases to the pubic symphysis.? Coronal and sagittal reformats were performed.? For radiation dose reduction, the following was used:? automated exposure control, adjustment of mA and/or kV according to patient size.? ? COMPARISON:? None. ? FINDINGS:? Image quality:? Excellent.? ? Lung bases:? Numerous patchy airspace opacities in both lungs. Heart:? No significant findings. ? ABDOMEN: Liver:? No mass or acute finding.? Gallbladder:? Normal. Biliary ducts:? Nondilated. Pancreas:? Unremarkable. Spleen:? Normal size and appearance. Adrenal Glands:? No nodule or mass. Kidneys and Ureters:? No hydronephrosis or hydroureter.? No urinary tract calculus. ? Stomach and Bowel:? Stomach, small bowel loops, and colon are unremarkable.? Peritoneum:? No abnormal intraperitoneal fluid.? No free air.? ? Ventral Wall: ? No hernias.? Abdominal Nodes:? No retroperitoneal or mesenteric adenopathy by size criteria.? Vessels:? Aorta and inferior vena cava are normal in size.? ? PELVIS: Pelvic Organs:? Unremarkable.? ? Bladder:? Unremarkable.? ? Pelvic Nodes: No enlarged lymph nodes.? Miscellaneous: No hernias are seen. ? ? ? Bones:? Unremarkable.? IMPRESSION:? No acute finding in the abdomen or pelvis.? Numerous patchy airspace opacities in both lungs consistent with COVID-19 pneumonia/pneumonitis.? ? Dictated by: Brett Espino M.D. on 09/30/2021 at 18:40 ? ? Approved by: Brett Espino M.D. on 09/30/2021 at 18:45 ? MDM Narrative Medical decision making narrative: This is a 30-year-old male who presents to the emergency department complaining of diarrhea for 2 weeks, nausea and vomiting for 4 days, with low-grade fever of 99 F. patient endorses elevated blood sugars at home in the low 200s, poor use of insulin at home due to fear of needles, states he has been taking Imodium for his diarrhea which has not been helping. Patient tested positive for COVID today, patient is COVID vaccinated x1-[employer]. Patient's initial glucose was 343, lactate of 1.1, no leukocytosis, D-dimer was negative, no acidosis, lipase of 25, ketones of 1.81, liver enzymes were not elevated. Abdomen pelvis obtained for patient's description of belches smelling like fecal matter and concern for bowel obstruction, CT abdomen pelvis shows no acute finding the abdomen pelvis but does show numerous patchy airspace opacities in both lungs consistent with COVID 19 pneumonia. His abdomen did not have any enlarged lymph nodes or masses. Patient was prescribed loperamide to help with his frequent diarrhea, patient states he has been having 12-20 episodes of diarrhea each day without blood. He was given a prepack of Zofran to help with his nausea vomiting and instructed to tightly monitor his blood sugar and to return to the emergency department if a is any worsening of his symptoms. Patient received 1 L of normal saline, 1 L of lactated Ringer's, Zofran, loperamide, and Toradol in the emergency department with resolution of his vomiting, improvement in his pain and he did not have any diarrhea while here in the emergency department. On recheck his glucose was 246. Patient is appropriate and amenable to discharge home. Vital signs are stable on repeat examination is unremarkable. Patient has been informed of results. Patient has been given strict return to ER precautions for any new or worsening symptoms. Patient understands to follow up closely with outpatient providers as instructed. Patient understands plan and agrees to discharge home. All questions and concerns answered at this time. <Lam Leblanc DO - Last Filed: 10/02/21 00:31> Lab Data Labs: Lab Results 09/30/21 09/30/21 09/30/21 Range/Units 18:13 18:13 18:13 WBC 7.8 (4.5-11.0) X10^3/uL RBC 4.86 (4.5-5.9) X10^6/uL Hgb 14.1 (13.5-17.5) g/dL Hct 39.2 L (41-53) % MCV 80.7 (80-100) fL MCH 29.0 (26-34) PG MCHC 35.9 (30-36) % RDW 12.9 (11.6-14.8) % Plt Count 215 (150-400) X10^3/uL Neut % (Auto) 71.8 (50-75) % Lymph % (Auto) 17.6 L (25-40) % [place] % (Auto) 10.1 (3-14) % Eos % (Auto) 0.1 L (2-4) % Baso % (Auto) 0.4 (0-2) % Neut # (Auto) 5600 (3252-8045) /uL Lymph # (Auto) 1400 (2556-8951) /uL [place] # (Auto) 800 (0-900) /uL Eos # (Auto) 0 (0-450) /uL Baso # (Auto) 0 (0-100) /uL PT 13.3 H (10.1-12.7) SECONDS INR 1.2 (0.9-1.3) APTT 32 (26.4-36.2) SECONDS D-Dimer (<230) ng/mL VBG pH (7.33-7.43) VBG pCO2 (45-50) mmHg VBG pO2 (35-45) mmHg VBG HCO3 (23-28) mmol/L VBG Total CO2 (24-29) mmol/L VBG O2 Saturation (70-75) % VBG Base Excess (0-4) mmol/L Sodium 133 L (137-145) mmol/L Potassium 3.7 (3.4-5.1) mmol/L Chloride 91 L (98-107) mmol/L Carbon Dioxide 31 (22-32) mmol/L BUN 21 H (9-20) mg/dL Creatinine 0.97 (0.66-1.25) mg/dL Estimated GFR > 60.0 (>60) mL/min BUN/Creatinine Ratio 21.6 (6-22) Glucose 343 H (70-100) mg/dL Lactate (0.7-2.1) mmol/L Calcium 9.9 (8.4-10.2) mg/dL Total Bilirubin 0.9 (0.2-1.3) mg/dL AST 27 (17-59) IU/L ALT 20 (<50) IU/L Alkaline Phosphatase 66 (38-126) U/L Total Protein 8.1 (6.3-8.2) g/dL Albumin 4.5 (3.5-5.0) g/dL Globulin 3.6 (1.7-4.1) g/dL Albumin/Globulin Ratio 1.3 (1.0-2.8) Lipase 25 (23-300) U/L Urine RBC (0-5/HPF) Urine WBC (0-5/HPF) Urine Bacteria (None) Ur Culture Indicated? Micro UA Comment Ketones (<0.27) mmol/L 09/30/21 09/30/21 09/30/21 Range/Units 18:13 18:13 18:13 WBC (4.5-11.0) X10^3/uL RBC (4.5-5.9) X10^6/uL Hgb (13.5-17.5) g/dL Hct (41-53) % MCV (80-100) fL MCH (26-34) PG MCHC (30-36) % RDW (11.6-14.8) % Plt Count (150-400) X10^3/uL Neut % (Auto) (50-75) % Lymph % (Auto) (25-40) % [place] % (Auto) (3-14) % Eos % (Auto) (2-4) % Baso % (Auto) (0-2) % Neut # (Auto) (0274-5758) /uL Lymph # (Auto) (5790-5225) /uL [place] # (Auto) (0-900) /uL Eos # (Auto) (0-450) /uL Baso # (Auto) (0-100) /uL PT (10.1-12.7) SECONDS INR (0.9-1.3) APTT (26.4-36.2) SECONDS D-Dimer < 200 (<230) ng/mL VBG pH (7.33-7.43) VBG pCO2 (45-50) mmHg VBG pO2 (35-45) mmHg VBG HCO3 (23-28) mmol/L VBG Total CO2 (24-29) mmol/L VBG O2 Saturation (70-75) % VBG Base Excess (0-4) mmol/L Sodium (137-145) mmol/L Potassium (3.4-5.1) mmol/L Chloride (98-107) mmol/L Carbon Dioxide (22-32) mmol/L BUN (9-20) mg/dL Creatinine (0.66-1.25) mg/dL Estimated GFR (>60) mL/min BUN/Creatinine Ratio (6-22) Glucose (70-100) mg/dL Lactate 1.1 (0.7-2.1) mmol/L Calcium (8.4-10.2) mg/dL Total Bilirubin (0.2-1.3) mg/dL AST (17-59) IU/L ALT (<50) IU/L Alkaline Phosphatase (38-126) U/L Total Protein (6.3-8.2) g/dL Albumin (3.5-5.0) g/dL Globulin (1.7-4.1) g/dL Albumin/Globulin Ratio (1.0-2.8) Lipase (23-300) U/L Urine RBC (0-5/HPF) Urine WBC (0-5/HPF) Urine Bacteria (None) Ur Culture Indicated? Micro UA Comment Ketones 1.81 H (<0.27) mmol/L 09/30/21 09/30/21 Range/Units 19:10 20:16 WBC (4.5-11.0) X10^3/uL RBC (4.5-5.9) X10^6/uL Hgb (13.5-17.5) g/dL Hct (41-53) % MCV (80-100) fL MCH (26-34) PG MCHC (30-36) % RDW (11.6-14.8) % Plt Count (150-400) X10^3/uL Neut % (Auto) (50-75) % Lymph % (Auto) (25-40) % [place] % (Auto) (3-14) % Eos % (Auto) (2-4) % Baso % (Auto) (0-2) % Neut # (Auto) (1635-2048) /uL Lymph # (Auto) (7967-7666) /uL [place] # (Auto) (0-900) /uL Eos # (Auto) (0-450) /uL Baso # (Auto) (0-100) /uL PT (10.1-12.7) SECONDS INR (0.9-1.3) APTT (26.4-36.2) SECONDS D-Dimer (<230) ng/mL VBG pH 7.47 H (7.33-7.43) VBG pCO2 41.1 L (45-50) mmHg VBG pO2 18 L (35-45) mmHg VBG HCO3 30 H (23-28) mmol/L VBG Total CO2 31 H (24-29) mmol/L VBG O2 Saturation 30 L (70-75) % VBG Base Excess 7.0 H (0-4) mmol/L Sodium (137-145) mmol/L Potassium (3.4-5.1) mmol/L Chloride (98-107) mmol/L Carbon Dioxide (22-32) mmol/L BUN (9-20) mg/dL Creatinine (0.66-1.25) mg/dL Estimated GFR (>60) mL/min BUN/Creatinine Ratio (6-22) Glucose (70-100) mg/dL Lactate (0.7-2.1) mmol/L Calcium (8.4-10.2) mg/dL Total Bilirubin (0.2-1.3) mg/dL AST (17-59) IU/L ALT (<50) IU/L Alkaline Phosphatase (38-126) U/L Total Protein (6.3-8.2) g/dL Albumin (3.5-5.0) g/dL Globulin (1.7-4.1) g/dL Albumin/Globulin Ratio (1.0-2.8) Lipase (23-300) U/L Urine RBC None seen (0-5/HPF) Urine WBC None seen (0-5/HPF) Urine Bacteria None seen (None) Ur Culture Indicated? Cult not indicated Micro UA Comment Microscopic normal Ketones (<0.27) mmol/L Point of Care Testing Glucose POC 246 Urine Dip Bedside Urine Glucose 1000 mg/dl Bedside Urine Bilirubin - Negative Bedside Urine Ketone +/- 5 Urine Specific [place] 1.010 Bedside Urine Occult Blood +/- Bedside Urine pH 6.0 Bedside Urine Protein - Negative Bedside Urine Urobilinogen - Negative Bedside Urine Nitrite - Negative Bedside Urine Leukocytes - Negative Esterase Discharge Plan Departure Patient Disposition: Home Clinical Impression: COVID-19, Vomiting and diarrhea, Hyperglycemia due to diabetes mellitus Instructions: DI for Dehydration -- Adult, DI for COVID-19 (Suspected or Confirmed ) Activity Restrictions/Additional Instructions: *You have been diagnosed with COVID, diarrhea, and COVID pneumonia. I am really sorry for your symptoms, since it is already been 2 weeks I suspect should start getting better soon. Please picker feeder loperamide, Zofran, and omeprazole from your pharmacy in [place]. Omeprazole is for your epigastric pain and burning, please take this in the morning before food to help prevent ulcer since you have been sick for 2 weeks already. Please schedule an appointment with your primary care provider for follow-up, or you may return here to the emergency department if he have any worsening of your symptoms before then. Please monitor your blood sugar, stay hydrated injury plenty of fluids with electrolytes in them. Start with a bland diet and gradually increase so that your bowels can tolerate it. Please remember to take deep breaths and occasionally cough intentionally, try not to breathe shallow for a long period of time, and stay mobile around the house so that you do not get too stiff or have mucous accumulation in your lungs. This can lead to bacterial pneumonia which does not appear to be your problem at this time. *What to do: *Please continue to take your regular medications as directed. [x ] New medication prescriptions sent to your pharmacy: [ [facility]] [ ] New medication written as a paper prescription [ ] No new medications given *Please follow up with your primary care provider in 2-3 days, call for an appointment. Let them know you were seen in the Emergency Department and that we ask that you be seen in follow up. We will electronically transmit a record of today's note if your PCP is in our system *If you do not have a primary care provider please contact the [facility] Resource line at [phone]. They will ask some questions about your medical history and help get you set up with a doctor in the community. *Return to Emergency Department if you should have any new, worsening or concerning symptoms, such as [fever greater than 101F, chills, worsening pain, persistent vomiting or other bothersome symptoms] Prescriptions: New loperamide 2 mg tablet 2 mg PO Q6H PRN (Reason: loose stool) Qty: 20 0RF ondansetron 4 mg tablet,disintegrating 4 mg PO Q8H PRN (Reason: nausea and vomiting) Qty: 10 0RF omeprazole 20 mg capsule,delayed release(DR/EC) 20 mg PO DAILY Qty: 20 0RF No Action acetaminophen 325 mg Tablet 650 mg PO Q6HR PRN (Reason: As Needed For Fever/Mild Pain) Qty: 30 0RF gabapentin [Neurontin] 600 mg Tablet 600 mg PO TID Qty: 90 0RF Lantus Solostar U-100 Insulin 100 unit/mL (3 mL) Insulin Pen 25 unit subcut BEDTIME Qty: 15 0RF losartan 50 mg Tablet 50 mg PO DAILY Qty: 30 0RF ibuprofen 200 mg Tablet 600 mg PO PRN PRN (Reason: pain) Qty: 0 0RF Rx Instructions: take with food and drink plenty of water glucose 4 gram tablet,chewable 4 gram PO Q15M PRN (Reason: hypoglycemia) Qty: 30 0RF Rx Instructions: until response (DME) blood-glucose meter [Glucocard Shine Meter Kit] Kit See Rx Instructions .ROUTE .MEDSUPPLY Qty: 1 0RF Rx Instructions: check blood glucose 4 times a day sulfamethoxazole-trimethoprim [Bactrim DS] 800-160 mg tablet 1 tab PO BID Qty: 8 0RF metformin [Glucophage] 500 mg Tablet 1,000 mg PO 0800,1700 Qty: 60 0RF doxycycline hyclate 100 mg tablet 100 mg PO BID Qty: 20 0RF Referrals: Brittany Mosquera ARNP [Primary Care Provider] - <Lam Leblanc DO - Last Filed: 10/02/21 00:31> Cosign ED Attending Cosignature Attestation: I was immediately available in the department for consultation. This documentation has been reviewed and I agree with assessment and plan. Supervised by Lam Leblanc DO
[2021-09-30] MEDS: SODIUM CHLORIDE 0.9% 1,000 ML 1000 ML IV (18:14)
[2021-09-30] MEDS: ONDANSETRON 4 MG/2 ML INJ IV (18:14)
[2021-09-30 18:23] LABS: Add Manual Diff / Slide Review NO; Basophils Absolute Auto 0 /uL (0-100); Basophils Percent Auto 0.4 % (0-2); Eosinophils Absolute Auto 0 /uL (0-450); Eosinophils Percent Auto 0.1 % (2-4); Hematocrit 39.2 % (41-53); Hemoglobin 14.1 g/dL (13.5-17.5); Lymphocytes Absolute Auto 1400 /uL (1100-4500); Lymphocytes Percent Auto 17.6 % (25-40); Mean Corpuscular HGB Conc 35.9 % (30-36); Mean Corpuscular Volume 80.7 fL (80-100); Monocytes Absolute Auto 800 /uL (0-900); Monocytes Percent Auto 10.1 % (3-14); Neutrophils Absolute Auto 5600 /uL (1500-7000); Neutrophils Percent Auto 71.8 % (50-75); Platelet Count 215 X10^3/uL (150-400); Red Blood Cell Count 4.86 X10^6/uL (4.5-5.9); Red Cell Distribution Width 12.9 % (11.6-14.8); White Blood Cell Count 7.8 X10^3/uL (4.5-11.0)
[2021-09-30 18:34] LABS: INR 1.2 (0.9-1.3); Prothrombin Time 13.3 SECONDS (10.1-12.7)
[2021-09-30 18:37] LABS: PTT Partial Thromboplastin Tim 32 SECONDS (26.4-36.2)
[2021-09-30 18:38] LABS: Lactate (Lactic Acid) 1.1 mmol/L (0.7-2.1)
[2021-09-30 18:40] LABS: Alanine Aminotransferase 20 IU/L (<50); Albumin 4.5 g/dL (3.5-5.0); Albumin Globulin Ratio 1.3 (1.0-2.8); Alkaline Phosphatase 66 U/L (38-126); Aspartate Aminotransferase 27 IU/L (17-59); BUN Creatinine Ratio 21.6 (6-22); Bilirubin Total 0.9 mg/dL (0.2-1.3); Blood Urea Nitrogen 21 mg/dL (9-20); Calcium 9.9 mg/dL (8.4-10.2); Carbon Dioxide 31 mmol/L (22-32); Chloride 91 mmol/L (98-107); Estimated Glomerular Filt Rate > 60.0 mL/min (>60); Globulin 3.6 g/dL (1.7-4.1); Glucose 343 mg/dL (70-100); HEMOLYSIS < 15 (0-50); Lipase 25 U/L (23-300); Potassium 3.7 mmol/L (3.4-5.1); Sodium 133 mmol/L (137-145); Total Protein 8.1 g/dL (6.3-8.2)
[2021-09-30 18:47] LABS: D Dimer < 200 ng/mL (<230)
[2021-09-30] MEDS: FAMOTIDINE 20 MG/2 ML VIAL IV (19:01)
[2021-09-30] MEDS: LACTATED RINGERS 1,000 ML 1000 ML IV (19:02)
[2021-09-30 19:10] LABS: Ketones (Beta-Hydroxybutyrate) 1.81 mmol/L (<0.27)
[2021-09-30 19:56] LABS: HCO3 VBG 30 mmol/L (23-28); Oxygen Saturation VBG 30 % (70-75); PCO2 VBG 41.1 mmHg (45-50); PO2 VBG 18 mmHg (35-45); Total CO2 VBG 31 mmol/L (24-29); pH VBG 7.47 (7.33-7.43)
[2021-09-30] MEDS: ONDANSETRON 4 MG ODT PREPACK 1 BOTTLE MISC (19:58)
[2021-09-30] MEDS: KETOROLAC 30 MG/ML VIAL 15 MG IV (19:58)
[2021-09-30] MEDS: LOPERAMIDE 2 MG CAPSULE 4 MG PO (19:58)
[2021-09-30 20:27] LABS: Bacteria Urine None Seen; Culture Indicated Urine Cult Not Indicated; RBC Urine None Seen (0-5/HPF); Urine Comments Microscopic Normal; WBC Urine None Seen (0-5/HPF)
--- NOTE | 2021-09-30 21:59 | PC.NURSE ---
Agree with care/assessment/charting by Sandra James
== END 2021-09-30 21:56 | disposition home or self-care (01) ==
PROVIDERS: Emergency Medicine; Emergency Provider Nurse Practitioner Critical Care Medicine; PCP Nurse Practitioner Gerontology
DX: U07.1 COVID-19 (principal); R11.2 Nausea with vomiting, unspecified; E11.65 Type 2 diabetes mellitus with hyperglycemia; I10 Essential (primary) hypertension; Z79.4 Long term (current) use of insulin; Z79.84 Long term (current) use of oral hypoglycemic drugs
CPT/HCPCS: 36415; 74177; 80053; 81003; 81015; 82009; 82805; 82962; 83605; 83690; 85025; 85379; 85610; 85730; 87040; 87635; 93005; 96361; 96374; 96375; 99284; J1885; J2405; Q9967

== ENCOUNTER → 2022-11-15 14:06 | Outpatient (CLI) | payer BC, SELFPAY ==
[2019-07-14 14:02] VITALS: BMI 33.7
[2022-11-15 15:04] LABS: Influenza A - CEPHEID Flu A NEGATIVE (NEGATIVE); Influenza B - CEPHEID Flu B NEGATIVE (NEGATIVE); Respiratory Syncytial Virus Negative (Negative)
[2022-11-15 16:03] LABS: COVID-19 CEPHEID 4-PLEX PCR Negative (Negative)
== END ==
PROVIDERS: PCP Nurse Practitioner Gerontology; Visit Provider Nurse Practitioner Family
DX: R09.81 Nasal congestion (principal); R52 Pain, unspecified
CPT/HCPCS: 0241U

== ENCOUNTER 2022-11-15 14:27 | Emergency (ER) | payer BC, SELFPAY ==
[2019-07-14 14:02] VITALS: BMI 33.7
[2022-11-15] VITALS (7 sets, daily range): BP systolic 123–173; BP diastolic 79–103; PULSE 99–115; RESP 15–23; TEMP 36.6; O2SAT 92–96; BMI 17.8
--- NOTE | 2022-11-15 15:15 | DI.RAD.S_ITS ---
PROCEDURE: XR CHEST 2V INDICATIONS: Cough, fever, SOB TECHNIQUE: 2 views of the chest were acquired. COMPARISON: [facility], CR, XR CHEST 1V, 07/06/2019, 13:40. FINDINGS: Surgical changes and devices: None. Lungs and pleura: Patchy left mid to lower lung zone opacities. Mediastinum: Mediastinal contours are normal. Heart size is normal. Bones and chest wall: No suspicious bony abnormalities. Soft tissues appear unremarkable. IMPRESSION: Patchy left mid lower lung zone opacities, concerning for infection or aspiration. Dictated by: Chris Gonzalez M.D. on 11/15/2022 at 15:34 Approved by: Chris Gonzalez M.D. on 11/15/2022 at 15:34
[2022-11-15] MEDS: ACETAMINOPHEN 325 MG TABLET 975 MG PO (18:50)
[2022-11-15] MEDS: SODIUM CHLORIDE 0.9% 1,000 ML 1000 ML IV (19:12)
[2022-11-15 19:18] LABS: Add Manual Diff / Slide Review NO; Basophils Absolute Auto 0 /uL (0-100); Basophils Percent Auto 0.4 % (0-2); Eosinophils Absolute Auto 0 /uL (0-450); Eosinophils Percent Auto 0.1 % (2-4); Hematocrit 44.4 % (41-53); Hemoglobin 15.4 g/dL (13.5-17.5); Lymphocytes Absolute Auto 1300 /uL (1100-4500); Mean Corpuscular HGB Conc 34.8 % (30-36); Mean Corpuscular Hemoglobin 28.7 PG (26-34); Mean Corpuscular Volume 82.6 fL (80-100); Monocytes Absolute Auto 800 /uL (0-900); Monocytes Percent Auto 13.6 % (3-14); Neutrophils Absolute Auto 3700 /uL (1500-7000); Neutrophils Percent Auto 63.9 % (50-75); Platelet Count 184 X10^3/uL (150-400); Red Blood Cell Count 5.38 X10^6/uL (4.5-5.9); Red Cell Distribution Width 13.2 % (11.6-14.8); White Blood Cell Count 5.7 X10^3/uL (4.5-11.0)
[2022-11-15 19:40] LABS: Alanine Aminotransferase 27 IU/L (<50); Albumin 4.4 g/dL (3.5-5.0); Albumin Globulin Ratio 1.2 (1.0-2.8); Alkaline Phosphatase 76 U/L (38-126); Aspartate Aminotransferase 31 IU/L (17-59); BUN Creatinine Ratio 22.7 (6-22); Bilirubin Total 1.1 mg/dL (0.2-1.3); Blood Urea Nitrogen 15 mg/dL (9-20); Calcium 8.9 mg/dL (8.4-10.2); Carbon Dioxide 29 mmol/L (22-32); Chloride 90 mmol/L (98-107); Estimated Glomerular Filt Rate > 60 mL/min (>60); Globulin 3.8 g/dL (1.7-4.1); Glucose 275 mg/dL (70-100); HEMOLYSIS < 15 (0-50); Lactate (Lactic Acid) 1.1 mmol/L (0.7-2.1); Potassium 3.5 mmol/L (3.4-5.1); Sodium 131 mmol/L (137-145); Total Protein 8.2 g/dL (6.3-8.2)
[2022-11-15 19:56] LABS: Procalcitonin 0.15 ng/mL (<0.5)
--- NOTE | 2022-11-15 19:56 | ED.URI ---
HPI - URI/Sore Throat General Chief Complaint: Upper Respiratory Symptoms Stated Complaint: headache lack of fluids came from [facility] Time Seen by Provider: 11/15/22 18:35 Mode of arrival: Family Vehicle History of Present Illness HPI Narrative: Patient is a 32-year-old male history of diabetes hypertension hyperlipidemia presenting today with cough fever ongoing for the last 3 days. He says a pursue start cough started having sweating chills and worsening cough yesterday. Today just does not feel well. Noted to be tachycardic. He denies any chest pain or significant shortness of breath. He has mild cough Related Data Previous Rx's Medication Instructions Recorded acetaminophen 325 mg tablet 650 mg PO Q6HR PRN As Needed For 07/17/19 Fever/Mild Pain #30 tabs blood-glucose meter (Glucocard #1 ea 07/17/19 Shine Meter Kit) gabapentin 600 mg tablet 600 mg PO TID #90 tabs 07/17/19 (Neurontin) glucose 4 gram chewable tablet 4 gram PO Q15M PRN hypoglycemia 07/17/19 #30 tabs ibuprofen 200 mg tablet 600 mg PO PRN PRN pain #0 tabs 07/17/19 insulin glargine 100 unit/mL (3 25 unit (0.25 mL) SUBCUT BEDTIME 07/17/19 mL) subcutaneous pen (Lantus #15 mL Solostar U-100 Insulin) losartan 50 mg tablet 50 mg PO DAILY #30 tabs 07/17/19 metformin 500 mg tablet 1,000 mg PO 0800,1700 #60 tabs 07/17/19 (Glucophage) sulfamethoxazole 800 1 tab PO BID #8 tabs 07/17/19 mg-trimethoprim 160 mg tablet (Bactrim DS) doxycycline hyclate 100 mg tablet 100 mg PO BID #20 tabs 07/23/19 loperamide 2 mg tablet 2 mg PO Q6H PRN loose stool #20 09/30/21 tabs omeprazole 20 mg capsule,delayed 20 mg PO DAILY #20 caps 09/30/21 release ondansetron 4 mg disintegrating 4 mg PO Q8H PRN nausea and 09/30/21 tablet vomiting #10 tabs levofloxacin 750 mg tablet 750 mg PO DAILY 7 days #5 tabs 11/15/22 Allergies Allergy/AdvReac Type Severity Reaction Status Date / Time cefaclor [From [facility]] Allergy Verified 11/15/22 15:14 Review of Systems Review of Systems ROS Unobtainable: All systems reviewed & are unremarkable except as noted in HPI and below Patient History Medical History (Updated 11/15/22 @ 20:29 by Meme Gaines DO) Amputated toe of right foot HTN (hypertension) Osteomyelitis of ankle and foot Surgical History Hx of toe surgery No pertinent past surgical history S/P tonsillectomy Family History Father Diabetes mellitus Hypertension Mother Benign neoplasm of abdomen Sister Diabetes mellitus Social History household members: significant other Smoking Status: Never smoker Smoking Status: Never smoker tobacco type: cigarettes alcohol intake frequency: holidays/special occasions only Substance Use Type: does not use Exam Initial Vital Signs Initial Vital Signs: Vital Signs Temperature 97.9 F 11/15/22 15:12 Pulse Rate 115 H 11/15/22 15:12 Respiratory Rate 18 11/15/22 15:12 Blood Pressure 123/79 11/15/22 15:12 Pulse Oximetry 94 11/15/22 15:12 Oxygen Delivery Method Room Air 11/15/22 15:12 GENERAL: Alert 32-year-old male appears to not feel well HEENT: Head atraumatic,EOMI, pupils reactive, face symmetric, [moist] mucous membranes CARDIOVASCULAR: Mild tachycardia without murmurs or rubs RESPIRATORY: Coarse breath sounds bilaterally no respiratory distress mild coughing ABDOMEN: Soft, nontender. Normoactive bowel sounds all 4 quadrants. No guarding or rebound. : No CVA tenderness EXTREMITIES: Normal range of motion, no clubbing or edema. Neurovascularly intact NEUROLOGICAL: Alert and oriented x4. SKIN: Warm, dry, no laceration, no petechiae, no rashes or lesions. Scores CURB-65 Confusion: No BUN >19mg/dL (>7mmol/L): No Respiratory rate greater or equal to 30: No SBP <90mmHg or DBP less or equal to 60mmHg: No Age 65 or Older: No CURB-65 Total: 0 Score 0-1 Outpatient care, Score 2 Inpt vs. Obs, Score 3 or over Inpt admit with ICU for score of 4-5 Course Orders Ordered: ED Orders 11/15/22 20:16 EKG-12 Lead Stat Discontinued Medications Acetaminophen (Acetaminophen 325 Mg Tablet) 975 mg PO NOW ONE Stop: 11/15/22 18:38 Last Admin: 11/15/22 18:50 Dose: 975 mg Documented By: MISAEL Albuterol (Albuterol Hfa Prepack) 1 box MISC SEEINSTR ONE Stop: 11/15/22 20:25 Last Admin: 11/15/22 20:31 Dose: 1 box Documented By: YELENA Sodium Chloride (Normal Saline 0.9%) 1,000 mls @ 1,000 mls/hr IV BOLUS ONE Stop: 11/15/22 19:36 Last Infusion: 11/15/22 20:34 Dose: 0 mls/hr Documented By: Admin: 11/15/22 19:12 Dose: 1,000 mls/hr Documented By: MISAEL Levofloxacin (Levofloxacin 250 Mg Tablet) 500 mg PO NOW ONE Stop: 11/15/22 20:25 Last Admin: 11/15/22 20:42 Dose: 500 mg Documented By: MISAEL Vital Signs Vital signs: Vital Signs - 8 hr 11/15/22 15:12 Temperature 97.9 F Pulse Rate 115 H Respiratory Rate 18 Blood Pressure 123/79 Pulse Oximetry 94 Oxygen Delivery Method Room Air MDM - URI/Sore Throat Lab Data 11/15/22 19:07 11/15/22 19:07 Labs: Lab Results 11/15/22 11/15/22 11/15/22 Range/Units 19:07 19:07 19:07 WBC 5.7 (4.5-11.0) X10^3/uL RBC 5.38 (4.5-5.9) X10^6/uL Hgb 15.4 (13.5-17.5) g/dL Hct 44.4 (41-53) % MCV 82.6 (80-100) fL MCH 28.7 (26-34) PG MCHC 34.8 (30-36) % RDW 13.2 (11.6-14.8) % Plt Count 184 (150-400) X10^3/uL Neut % (Auto) 63.9 (50-75) % Lymph % (Auto) 22.0 L (25-40) % Young % (Auto) 13.6 (3-14) % Eos % (Auto) 0.1 L (2-4) % Baso % (Auto) 0.4 (0-2) % Neut # (Auto) 3700 (6522-1224) /uL Lymph # (Auto) 1300 (6495-5144) /uL Young # (Auto) 800 (0-900) /uL Eos # (Auto) 0 (0-450) /uL Baso # (Auto) 0 (0-100) /uL Sodium 131 L (137-145) mmol/L Potassium 3.5 (3.4-5.1) mmol/L Chloride 90 L (98-107) mmol/L Carbon Dioxide 29 (22-32) mmol/L BUN 15 (9-20) mg/dL Creatinine 0.66 (0.66-1.25) mg/dL Estimated GFR > 60 (>60) mL/min BUN/Creatinine Ratio 22.7 H (6-22) Glucose 275 H (70-100) mg/dL Lactate 1.1 (0.7-2.1) mmol/L Calcium 8.9 (8.4-10.2) mg/dL Total Bilirubin 1.1 (0.2-1.3) mg/dL AST 31 (17-59) IU/L ALT 27 (<50) IU/L Alkaline Phosphatase 76 (38-126) U/L Total Protein 8.2 (6.3-8.2) g/dL Albumin 4.4 (3.5-5.0) g/dL Globulin 3.8 (1.7-4.1) g/dL Albumin/Globulin Ratio 1.2 (1.0-2.8) Procalcitonin 0.15 (<0.5) ng/mL Imaging Data Chest x-ray: Radiologist's Impression: PROCEDURE:? XR CHEST 2V ? INDICATIONS:? Cough, fever, SOB ? TECHNIQUE:? 2 views of the chest were acquired.? ? COMPARISON:? [facility], CR, XR CHEST 1V, 07/06/2019, 13:40. ? FINDINGS:? ? Surgical changes and devices:? None.? ? Lungs and pleura:? Patchy left mid to lower lung zone opacities. ? Mediastinum:? Mediastinal contours are normal.? Heart size is normal.? ? Bones and chest wall:? No suspicious bony abnormalities.? Soft tissues appear unremarkable.? ? IMPRESSION:? Patchy left mid lower lung zone opacities, concerning for infection or aspiration. ? ? Dictated by: Chris Gonzalez M.D. on 11/15/2022 at 15:34 ? ? ECG Data Interpretation: Sinus rhythm rate 100 IA interval 136 QRS [address] changes similar to previous EKG Q-waves persistent in lead 3 similar to 09/30/2021 MDM Narrative Medical decision making narrative: The patient 32-year-old male history of diabetes hypertension hyperlipidemia presenting today with cough. Found to have pneumonia on x-ray. No leukocytosis elevated lactate or elevated procalcitonin. Viral panel is negative. He appears well in his persistently tachycardic. However he is given IV fluids and Tylenol do seem help. Low suspicion for PE symptoms are most consistent with infectious etiology. He is allergic to Ceclor given Levaquin. No evidence of DKA Discharge Plan Departure Patient Disposition: Home Clinical Impression: Pneumonia Instructions: DI for Pneumonia -- Adult Activity Restrictions/Additional Instructions: *You have been diagnosed with pneumonia *What to do: At this time you have pneumonia on her x-ray. Hydrate and rest. *Continue to take medications as directed Tylenol and ibuprofen as directed if needed for fever or pain Levaquin 750 mg once daily for 5 days --> [facility] 1-2 puffs with spacer if needed for coughing *Follow up with your primary care provider in 2-3 days or call [phone] *Return to ER if you should have increasing shortness of breath fever not tolerating fluids or any new, worsening or concerning symptoms Prescriptions: New levofloxacin 750 mg tablet 750 mg PO DAILY 7 Days Qty: 5 0RF No Action acetaminophen 325 mg Tablet 650 mg PO Q6HR PRN (Reason: As Needed For Fever/Mild Pain) Qty: 30 0RF gabapentin [Neurontin] 600 mg Tablet 600 mg PO TID Qty: 90 0RF Lantus Solostar U-100 Insulin 100 unit/mL (3 mL) Insulin Pen 25 unit subcut BEDTIME Qty: 15 0RF losartan 50 mg Tablet 50 mg PO DAILY Qty: 30 0RF ibuprofen 200 mg Tablet 600 mg PO PRN PRN (Reason: pain) Qty: 0 0RF Rx Instructions: take with food and drink plenty of water glucose 4 gram tablet,chewable 4 gram PO Q15M PRN (Reason: hypoglycemia) Qty: 30 0RF Rx Instructions: until response (DME) blood-glucose meter [Glucocard Shine Meter Kit] Kit See Rx Instructions .ROUTE .MEDSUPPLY Qty: 1 0RF Rx Instructions: check blood glucose 4 times a day sulfamethoxazole-trimethoprim [Bactrim DS] 800-160 mg tablet 1 tab PO BID Qty: 8 0RF metformin [Glucophage] 500 mg Tablet 1,000 mg PO 0800,1700 Qty: 60 0RF doxycycline hyclate 100 mg tablet 100 mg PO BID Qty: 20 0RF loperamide 2 mg tablet 2 mg PO Q6H PRN (Reason: loose stool) Qty: 20 0RF ondansetron 4 mg tablet,disintegrating 4 mg PO Q8H PRN (Reason: nausea and vomiting) Qty: 10 0RF omeprazole 20 mg capsule,delayed release(DR/EC) 20 mg PO DAILY Qty: 20 0RF Referrals: Brittany Mosquera ARNP [Primary Care Provider] - Stand Alone Forms: Patient Portal/API, Work Release Note
[2022-11-15] MEDS: ALBUTEROL HFA PREPACK 1 BOX MISC (20:31)
[2022-11-15] MEDS: levoFLOXacin 250 MG TABLET 500 MG PO (20:42)
== END 2022-11-15 21:00 | disposition home or self-care (01) ==
PROVIDERS: Emergency Provider Emergency Medicine; PCP Nurse Practitioner Gerontology
DX: J18.9 Pneumonia, unspecified organism (principal); R09.81 Nasal congestion; R52 Pain, unspecified
CPT/HCPCS: 0241U; 36415; 71046; 80053; 83605; 84145; 85025; 87040; 93005; 93010; 99283; 99284

== ENCOUNTER 2025-05-23 10:26 | Inpatient (IN) | payer BC, SELFPAY ==
[2019-07-14 14:02] VITALS: BMI 33.7
[2025-05-23 10:38] VITALS: BP 170/93; PULSE 115; RESP 16; TEMP 37.1; O2SAT 98; BMI 28.1
--- NOTE | 2025-05-23 10:52 | ED.SKABFB ---
HPI - Skin/Abscess/Foreign Bdy General Chief complaint: Skin/Abscess/Foreign Body Stated complaint: right groin abscess, x 7 days Time Seen by Provider: 05/23/25 10:36 History of Present Illness HPI narrative: 34-year-old gentleman history of hypertension, diabetes, currently on metformin was previously prescribed NovoLog and Lantus for which he is noncompliant was seen initially for a left leg abscess prescribed doxycycline that has since been healing started to have right groin abscess for which he was initially started on Bactrim but then he started have peeling of his lips and was prescribed clindamycin stopped Bactrim. Patient was re-evaluated in the walk-in clinic as he was having denuded skin from his penis sent over for further evaluation with concerns for possible Akash Paul syndrome. Other than what is stated 14 point review of system is negative. Related Data Home Medications ?Medication ?Instructions ?Recorded ?Confirmed amlodipine 5 mg tablet 5 mg PO DAILY 05/23/25 05/23/25 clotrimazole-betamethasone 1 applic topical BID 05/23/25 05/23/25 %-0.05 % topical cream losartan 100 1 tab PO QAM 05/23/25 05/23/25 mg-hydrochlorothiazide 25 mg tablet metformin 750 mg tablet,extended 1,500 mg PO QAM 05/23/25 05/23/25 release 24 hr ondansetron 8 mg disintegrating 8 mg PO Q8H PRN nausea/vomiting 05/23/25 05/23/25 tablet Previous Rx's ?Medication ?Instructions ?Recorded acetaminophen 325 mg tablet 650 mg (2 x 325 mg) PO Q6HR PRN As 07/17/19 Needed For Fever/Mild Pain #30 tabs blood-glucose meter (Glucocard #1 ea 07/17/19 Shine Meter Kit) glucose 4 gram chewable tablet 4 gram PO Q15M PRN hypoglycemia 07/17/19 #30 tabs ibuprofen 200 mg tablet 600 mg (3 x 200 mg) PO PRN PRN 07/17/19 pain #0 tabs loperamide 2 mg tablet 2 mg PO Q6H PRN loose stool #20 09/30/21 tabs Allergies Allergy/AdvReac Type Severity Reaction Status Date / Time Sulfa (Sulfonamide Allergy Severe Rash, Verified 05/23/25 10:12 Antibiotics) likely SJS cefaclor (From [facility]) Allergy Verified 05/23/25 09:49 Review of Systems Review of Systems ROS Unobtainable: All systems reviewed & are unremarkable except as noted in HPI and below Patient History Medical History (Updated 05/23/25 @ 13:39 by Deon Almonte DO) Amputated toe of right foot Osteomyelitis of ankle and foot HTN (hypertension) Surgical History S/P tonsillectomy Hx of toe surgery No pertinent past surgical history Family History Father Diabetes mellitus Hypertension Mother Benign neoplasm of abdomen Sister Diabetes mellitus Social History household members: significant other tobacco type: cigarettes alcohol intake frequency: holidays/special occasions only Exam Narrative Exam Narrative: GENERAL: [34] year old patient appears stated age. Well-developed patient, in mild distress. HEAD: Atraumatic. Normocephalic. EYES: Pupils equal round and reactive. Extraocular motions intact. No scleral icterus. No injection or drainage. ENT: Nose without bleeding, purulent drainage. Throat without erythema, tonsillar hypertrophy or exudate. Airway patent. NECK: Trachea midline. Non tender CARDIOVASCULAR: Regular rate and rhythm without murmurs, gallops, or rubs. RESPIRATORY: Clear to auscultation. Breath sounds equal bilaterally. No wheezes, rales, or rhonchi. GASTROINTESTINAL: Abdomen soft, non-tender, nondistended. EXTREMITIES: No edema or joint tenderness. BACK: Nontender without deformity or crepitance. No flank tenderness. NEURO: AOx3. SKIN: Lip peeling, denuded skin on the glans of the penis, right inguinal crease proximal thigh abscess with minimal fluctuance redness warmth tenderness 3 x 3 cm Initial Vital Signs Initial Vital Signs: Vital Signs Temperature 98.7 F 05/23/25 10:38 Pulse Rate 115 H 05/23/25 10:38 Respiratory Rate 16 05/23/25 10:38 Blood Pressure 170/93 H 05/23/25 10:38 Pulse Oximetry 98 05/23/25 10:38 Oxygen Delivery Method Room Air 05/23/25 10:38 Course Vital Signs Vital signs: Vital Signs - 8 hr 05/23/25 10:38 Temperature 98.7 F Pulse Rate 115 H Respiratory Rate 16 Blood Pressure 170/93 H Pulse Oximetry 98 Oxygen Delivery Method Room Air MDM - Skin/Abscess/Foreign Bdy Imaging Data CT scan - abdomen/pelvis: Radiologist's Impression: [address] [address] [address] Scan Report Signed Patient: Jermain Quan MR#: [id number] : 1990 Acct:[id number] Age/Sex: 34 / M Date of Service: 05/23/25 Loc: ED Accession Number: [id number] Procedure: CT abdomen pelvis w con Ordering Provider: Deon Almonte D.O. PROCEDURE: CT ABDOMEN PELVIS W CON INDICATIONS: R inguinal groin abscess TECHNIQUE: After the administration of intravenous contrast, axial sections acquired from the lung bases to the pubic symphysis. Coronal and sagittal reformats were performed. For radiation dose reduction, the following was used: automated exposure control, adjustment of mA and/or kV according to patient size. COMPARISON: [facility], CT, CT ABDOMEN PELVIS W CON, 09/30/2021, 18:14. FINDINGS: Image quality: Diagnostic. Lower Chest: No significant findings. Interval resolution of the prior ground-glass opacities seen on 09/30/2021. ABDOMEN: Liver: Focal fatty infiltration along the falciform ligament. Gallbladder: No radiopaque gallstones or wall thickening. Biliary ducts: No biliary dilation. Pancreas: No ductal dilation. Spleen: Size is within normal limits. Adrenal Glands: No adrenal nodules. Kidneys and Ureters: No hydronephrosis. No solid mass. No complex renal cystic lesion which requires follow up. Stomach and Bowel: Normal colonic caliber, without significant wall thickening. Normal appendix. Peritoneum: No abnormal intraperitoneal fluid. No free air. Ventral Wall: No significant ventral hernia. Abdominal Nodes: No retroperitoneal or mesenteric adenopathy by size criteria. Vessels: Aorta and inferior vena cava are normal in size. PELVIS: Pelvic Organs: Unremarkable. Bladder: No bladder wall thickening, accounting for underdistention. Pelvic Nodes: Asymmetrically enlarged right pelvic sidewall lymph nodes which measure up to 2.8 x 0.8 cm (2/128). Enlarged, 1.3 x 1.8 cm right inguinal nodes (2/145). Miscellaneous: C-shaped, a soft tissue inflammation and possible phlegmonous change without peripherally enhancing abscess in the right anterior inguinal region which measures 5.8 x 7.2 x 3.6 cm (CC x AP x Trans) (/36; 2/158). Surrounding enhancing dermal thickening, consistent with cellulitis. No discrete intramuscular enhancing abscess within the right proximal thigh. Bones: No aggressive osseous abnormality. No focal periosteal reaction to suggest osteomyelitis. IMPRESSION: 1. Right inguinal cellulitis with soft tissue phlegmonous change. No well-defined, drainable abscess. 2. Right inguinal and pelvic sidewall lymphadenopathy is favored to be reactive Dictated by: Brett Martel M.D. on 05/23/2025 at 12:37 Approved by: Brett Martel M.D. on 05/23/2025 at 12:43 MDM Narrative Medical decision making narrative: All labwork, vital signs, [employer] consultant note, med list, previous ER vists and all imaging studies all reviewed. WBC 12, Ct abd pelvis - R inguinal cellulitis with soft tissue phlegmonous change. No well defined drainable abscess. Pt started on Vanco and zosyn, LR 1L bolus x2, glu 412 given regular insulin 8u IV x1. . [facility] d[facility]w who has graciously accepted pt for inpatient admission. consult pending. Differential diagnosis cellulitis, abscess, MRSA, Akash Paul's syndrome. Discharge Plan Departure Patient Disposition: Admitted As Inpatient Clinical Impression: Inguinal abscess, Acute hyperglycemia
[2025-05-23] MEDS: LACTATED RINGERS 1,000 ML 1000 ML IV ×2 (11:20→14:08)
[2025-05-23 11:27] LABS: Add Manual Diff / Slide Review NO; Hematocrit 39.0 % (41-53); Hemoglobin 13.2 g/dL (13.5-17.5); Lymphocytes Absolute Auto 1200 /uL (1100-4500); Mean Corpuscular HGB Conc 33.9 % (30-36); Mean Corpuscular Hemoglobin 28.1 PG (26-34); Mean Corpuscular Volume 82.9 fL (80-100); Platelet Count 336 X10^3/uL (150-400)
[2025-05-23 11:34] LABS: Lactate (Lactic Acid) 1.0 mmol/L (0.7-2.1)
[2025-05-23 11:38] LABS: Alanine Aminotransferase 18 IU/L (<50); Albumin 3.9 g/dL (3.5-5.0); Albumin Globulin Ratio 1.0 (1.0-2.8); Alkaline Phosphatase 94 U/L (38-126); Blood Urea Nitrogen 17 mg/dL (9-20); Calcium 8.9 mg/dL (8.4-10.2); Carbon Dioxide 23 mmol/L (22-32); Chloride 96 mmol/L (98-107); Estimated Glomerular Filt Rate > 60 mL/min (>60); Globulin 4.0 g/dL (1.7-4.1); Glucose 412 mg/dL (70-99); HEMOLYSIS 44 (0-50); Potassium 4.1 mmol/L (3.4-5.1); Sodium 136 mmol/L (137-145); Total Protein 7.9 g/dL (6.3-8.2)
[2025-05-23] MEDS: PIPERACILLIN/TAZO 4.5 GM in SODIUM CHLORIDE 0.9% 100 ML IV (11:42)
[2025-05-23 11:52] LABS: Procalcitonin 0.081 ng/mL (<0.5)
--- NOTE | 2025-05-23 12:15 | DI.CT.S_ITS ---
PROCEDURE: CT ABDOMEN PELVIS W CON INDICATIONS: R inguinal groin abscess TECHNIQUE: After the administration of intravenous contrast, axial sections acquired from the lung bases to the pubic symphysis. Coronal and sagittal reformats were performed. For radiation dose reduction, the following was used: automated exposure control, adjustment of mA and/or kV according to patient size. COMPARISON: [facility], CT, CT ABDOMEN PELVIS W CON, 09/30/2021, 18:14. FINDINGS: Image quality: Diagnostic. Lower Chest: No significant findings. Interval resolution of the prior ground- glass opacities seen on 09/30/2021. ABDOMEN: Liver: Focal fatty infiltration along the falciform ligament. Gallbladder: No radiopaque gallstones or wall thickening. Biliary ducts: No biliary dilation. Pancreas: No ductal dilation. Spleen: Size is within normal limits. Adrenal Glands: No adrenal nodules. Kidneys and Ureters: No hydronephrosis. No solid mass. No complex renal cystic lesion which requires follow up. Stomach and Bowel: Normal colonic caliber, without significant wall thickening. Normal appendix. Peritoneum: No abnormal intraperitoneal fluid. No free air. Ventral Wall: No significant ventral hernia. Abdominal Nodes: No retroperitoneal or mesenteric adenopathy by size criteria. Vessels: Aorta and inferior vena cava are normal in size. PELVIS: Pelvic Organs: Unremarkable. Bladder: No bladder wall thickening, accounting for underdistention. Pelvic Nodes: Asymmetrically enlarged right pelvic sidewall lymph nodes which measure up to 2.8 x 0.8 cm (2/128). Enlarged, 1.3 x 1.8 cm right inguinal nodes (2/145). Miscellaneous: C-shaped, a soft tissue inflammation and possible phlegmonous change without peripherally enhancing abscess in the right anterior inguinal region which measures 5.8 x 7.2 x 3.6 cm (CC x AP x Trans) (6/36; 2/158). Surrounding enhancing dermal thickening, consistent with cellulitis. No discrete intramuscular enhancing abscess within the right proximal thigh. Bones: No aggressive osseous abnormality. No focal periosteal reaction to suggest osteomyelitis. IMPRESSION: 1. Right inguinal cellulitis with soft tissue phlegmonous change. No well- defined, drainable abscess. 2. Right inguinal and pelvic sidewall lymphadenopathy is favored to be reactive Dictated by: Brett Martel M.D. on 05/23/2025 at 12:37 Approved by: Brett Martel M.D. on 05/23/2025 at 12:43
[2025-05-23] MEDS: VANCOMYCIN 1,750 MG in SODIUM CHLORIDE 0.9% 500 ML 250 MG IV (12:34)
[2025-05-23 13:39] LABS: Culture Indicated Urine Specimen Cultured
[2025-05-23] MEDS: INSULIN REGULAR 100 UNIT/ML 3 ML VIAL 8 UNIT IV (14:08)
--- NOTE | 2025-05-23 15:45 | PM.CN.IH.1 ---
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 He went to urgent care in [place] for a left anterior thigh skin boil about 12 days ago. He was prescribed doxycycline. He returned there about 9 days ago because he started to notice pain swelling and redness of his right groin. At that point he was switched to Bactrim. Two days after starting Bactrim he started to notice pain and de epithelialization in the corners of his mouth. He also experienced a raw pain of his oropharynx. At some point later he had started to develop pain and sloughing of skin from the tip of his penis. He was switched to clindamycin at some point around that time as well. Today he went to urgent care in [place] and saw Sissy GARCIA who was concerned about Walker Paul and sent him to the emergency room. He had a CT scan in the emergency room here which showed soft tissue inflammation consistent with a phlegmon in the right groin but no drainable fluid collection in the right groin. Meds Home Medications and Allergies Home Medications ?Medication ?Instructions ?Recorded ?Confirmed ?Type acetaminophen 325 mg tablet 650 mg (2 x 325 mg) PO Q6HR PRN As 07/17/19 05/23/25 Rx Needed For Fever/Mild Pain #30 tabs blood-glucose meter (Glucocard #1 ea 07/17/19 09/30/21 Rx Shine Meter Kit) glucose 4 gram chewable tablet 4 gram PO Q15M PRN hypoglycemia 07/17/19 05/23/25 Rx #30 tabs ibuprofen 200 mg tablet 600 mg (3 x 200 mg) PO PRN PRN 07/17/19 05/23/25 Rx pain #0 tabs loperamide 2 mg tablet 2 mg PO Q6H PRN loose stool #20 09/30/21 05/23/25 Rx tabs amlodipine 5 mg tablet 5 mg PO DAILY 05/23/25 05/23/25 History clotrimazole-betamethasone 1 applic topical BID 05/23/25 05/23/25 History %-0.05 % topical cream losartan 100 1 tab PO QAM 05/23/25 05/23/25 History mg-hydrochlorothiazide 25 mg tablet metformin 750 mg tablet,extended 1,500 mg PO QAM 05/23/25 05/23/25 History release 24 hr ondansetron 8 mg disintegrating 8 mg PO Q8H PRN nausea/vomiting 05/23/25 05/23/25 History tablet Allergies Allergy/AdvReac Type Severity Reaction Status Date / Time Sulfa (Sulfonamide Allergy Severe Rash, Verified 05/23/25 10:12 Antibiotics) likely SJS cefaclor (From [facility]) Allergy Verified 05/23/25 09:49 Exam Vital Signs (past 8 hours): - 05/23/25 10:38 Temperature 98.7 F Pulse Rate 115 H Respiratory Rate 16 Blood Pressure 170/93 H Pulse Oximetry 98 Oxygen Delivery Method Room Air Oxygen Delivery Method Room Air Narrative Exam Narrative: There is a 3 cm round eschar in the anterior right thigh with some surrounding erythema There is 15 cm x 8 cm segment of erythema and induration in the lateral right groin and upper right thigh There is de-epithelialized skin on the glans penis There is the epithelialized skin and mucous membranes in the corners of his mouth Objective Labs 05/23/25 11:11 05/23/25 11:11 Labs: Laboratory Results - last 24 hr 05/23/25 05/23/25 11:11 13:13 WBC 12.1 H RBC 4.71 Hgb 13.2 L Hct 39.0 L MCV 82.9 MCH 28.1 MCHC 33.9 RDW 12.8 Plt Count 336 Neut % (Auto) 80.9 H Lymph % (Auto) 9.8 L [place] % (Auto) 8.3 Eos % (Auto) 0.4 L Baso % (Auto) 0.6 Neut # (Auto) 9800 H Lymph # (Auto) 1200 [place] # (Auto) 1000 H Eos # (Auto) 0 Baso # (Auto) 100 ESR 50 H Sodium 136 L Potassium 4.1 Chloride 96 L Carbon Dioxide 23 BUN 17 Creatinine 0.50 L Estimated GFR > 60 BUN/Creatinine Ratio 34.0 H Glucose 412 H Lactate 1.0 Calcium 8.9 Total Bilirubin 0.8 AST 29 ALT 18 Alkaline Phosphatase 94 C-Reactive Protein 16.0 H Total Protein 7.9 Albumin 3.9 Globulin 4.0 Albumin/Globulin Ratio 1.0 Procalcitonin 0.081 Urine RBC 5-10/hpf H Urine WBC 5-10/hpf H Ur Squamous Epith Cells 5-10 /hpf H Urine Bacteria Occasional (0-1) Ur Culture Indicated? 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 There is no drainable fluid collection so there is no indication for any surgical procedure at this time. Time-Based Coding :: [TOTAL MINUTES] spent with patient and on the chart (including review of chart, obtaining history, exam, reviewing outside data, placing orders, documenting exam and treatment plan, and counseling patient) on [DATE]. PROFEE Charge Codes Inpatient or Observation consultation: [id number]
--- NOTE | 2025-05-23 16:40 | PM.HP.1 ---
History of Present Illness History of Present Illness Date Patient Seen: 05/23/25 Chief complaint: right groin abscess, x 7 days Narrative: Patient was a 34-year-old male with a history of hidradenitis suppurativa. He has a history of diabetes, which is presumably poorly controlled as well as a history of recurrent infections related to his hidradenitis. He was treated with doxycycline for a left anterior thigh boil about 2 weeks ago. This improved but then he developed a right groin swelling and was started on Bactrim. After taking Bactrim for 2 days he developed acute pain and peeling of the skin of his lips and the tip of his penis. He sought medical advice, and stopped this antibiotic immediately. These symptoms have been stable to perhaps slowly improving. There has been no desquamation of skin anywhere else on his body. His mouth pain is improved and he was able to take an oral intake. He was able to urinate. He was then started on clindamycin for progression of his right groin swelling. He presents to the ED today because of progression and lack of response to clindamycin. On exam, he appears to have significant hidradenitis of the right groin without active drainage. This extends just across to the midline of the pubis. He also has redness and excoriation of the head of the penis and normal scrotal area and perineum. His right groin is indurated and swollen. Imaging indicates phlegmon but no clear drainable abscess. He was seen by surgery in the emergency department. He has a listed allergy to Ceclor and did react as noted in this note to Bactrim. He denies a history of MRSA. 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 He notes clindamycin seemed to have little effect on his right groin. He does note a history of recurrent boils and suppurativa. These symptoms typically occur more in the summer months. 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 HTN (hypertension) Surgical History S/P tonsillectomy Hx of toe surgery No pertinent past surgical history Family History Father Diabetes mellitus Hypertension Mother Benign neoplasm of abdomen Sister Diabetes mellitus Social History household members: significant other Meds Home Medications and Allergies Home Medications ?Medication ?Instructions ?Recorded ?Confirmed ?Type acetaminophen 325 mg tablet 650 mg (2 x 325 mg) PO Q6HR PRN As 07/17/19 05/23/25 Rx Needed For Fever/Mild Pain #30 tabs blood-glucose meter (Glucocard #1 ea 07/17/19 09/30/21 Rx Shine Meter Kit) glucose 4 gram chewable tablet 4 gram PO Q15M PRN hypoglycemia 07/17/19 05/23/25 Rx #30 tabs ibuprofen 200 mg tablet 600 mg (3 x 200 mg) PO PRN PRN 07/17/19 05/23/25 Rx pain #0 tabs loperamide 2 mg tablet 2 mg PO Q6H PRN loose stool #20 09/30/21 05/23/25 Rx tabs amlodipine 5 mg tablet 5 mg PO DAILY 05/23/25 05/23/25 History clotrimazole-betamethasone 1 applic topical BID 05/23/25 05/23/25 History %-0.05 % topical cream losartan 100 1 tab PO QAM 05/23/25 05/23/25 History mg-hydrochlorothiazide 25 mg tablet metformin 750 mg tablet,extended 1,500 mg PO QAM 05/23/25 05/23/25 History release 24 hr ondansetron 8 mg disintegrating 8 mg PO Q8H PRN nausea/vomiting 05/23/25 05/23/25 History tablet Allergies Allergy/AdvReac Type Severity Reaction Status Date / Time Sulfa (Sulfonamide Allergy Severe Rash, Verified 05/23/25 10:12 Antibiotics) 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 Exam Vital Signs (past 8 hours): - 05/23/25 10:38 Temperature 98.7 F Pulse Rate 115 H Respiratory Rate 16 Blood Pressure 170/93 H Pulse Oximetry 98 Oxygen Delivery Method Room Air Oxygen Delivery Method Room Air Narrative Exam Narrative: NAD, alert and oriented, fluent speech, calm. Normocephalic skull, EOMI, anicteric sclera, symmetric pupils. Oropharynx unremarkable, no droop. Neck supple, midline trachea, no adenopathy. Lungs clear, normal rate and effort. Heart regular, no murmur gallop or rub. Abdomen is soft, non distended and non tender. Extremities are free of edema. Skin is free of rash or lesions. Joints are not swollen or deformed. Judgment appears to be normal. He was had excoriation and blistering of his lips but not the inside of his mouth. There is also redness and some excoriation of the head of the penis. Scrotum is unremarkable. He has a small area that appears to have been a boil in the anterior left thigh which is mostly improved with surrounding erythema of 1-3 mm. His right groin is diffusely swollen and lumpy. This appears to be consistent with hidradenitis. There was no spontaneous drainage. Objective Imaging APCT:: Radiologist's impression: PELVIS: Pelvic Organs: Unremarkable. Bladder: No bladder wall thickening, accounting for underdistention. Pelvic Nodes: Asymmetrically enlarged right pelvic sidewall lymph nodes which measure up to 2.8 x 0.8 cm (2/128). Enlarged, 1.3 x 1.8 cm right inguinal nodes (2/145). Miscellaneous: C-shaped, a soft tissue inflammation and possible phlegmonous change without peripherally enhancing abscess in the right anterior inguinal region which measures 5.8 x 7.2 x 3.6 cm (CC x AP x Trans) (6/36; 2/158). Surrounding enhancing dermal thickening, consistent with cellulitis. No discrete intramuscular enhancing abscess within the right proximal thigh. Bones: No aggressive osseous abnormality. No focal periosteal reaction to suggest osteomyelitis. IMPRESSION: 1. Right inguinal cellulitis with soft tissue phlegmonous change. No well-defined, drainable abscess. 2. Right inguinal and pelvic sidewall lymphadenopathy is favored to be reactive Labs 05/23/25 11:11 05/23/25 11:11 Labs: Laboratory Results - last 24 hr 05/23/25 05/23/25 11:11 13:13 WBC 12.1 H RBC 4.71 Hgb 13.2 L Hct 39.0 L MCV 82.9 MCH 28.1 MCHC 33.9 RDW 12.8 Plt Count 336 Neut % (Auto) 80.9 H Lymph % (Auto) 9.8 L [place] % (Auto) 8.3 Eos % (Auto) 0.4 L Baso % (Auto) 0.6 Neut # (Auto) 9800 H Lymph # (Auto) 1200 [place] # (Auto) 1000 H Eos # (Auto) 0 Baso # (Auto) 100 ESR 50 H Sodium 136 L Potassium 4.1 Chloride 96 L Carbon Dioxide 23 BUN 17 Creatinine 0.50 L Estimated GFR > 60 BUN/Creatinine Ratio 34.0 H Glucose 412 H Lactate 1.0 Calcium 8.9 Total Bilirubin 0.8 AST 29 ALT 18 Alkaline Phosphatase 94 C-Reactive Protein 16.0 H Total Protein 7.9 Albumin 3.9 Globulin 4.0 Albumin/Globulin Ratio 1.0 Procalcitonin 0.081 Urine RBC 5-10/hpf H Urine WBC 5-10/hpf H Ur Squamous Epith Cells 5-10 /hpf H Urine Bacteria Occasional (0-1) Ur Culture Indicated? Specimen cultured Vol Urine Centrifuged 10ml (spun) Assessment & Plan Assessment & Plan narrative: 1. Hidradenitis suppurativa with infection, present on admission and active. This is in the right groin. 2. 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 3. Diabetes mellitus type 2, presumed poor control. PLAN: -we will initially treat with oral doxycycline and IV clindamycin. We will avoid Bactrim as this likely was the inciting event for his SJS. -nares MRSA screen. -low-dose prednisone and monitor excoriated areas of skin. -Lantus and sliding scale insulin and check A1c. Anticipate 2 midnights in the hospital, supports inpatient status. Full code is proxy decision maker. Time-Based Coding :: 35 min spent with patient and on the chart (including review of chart, obtaining history, exam, reviewing outside data, placing orders, documenting exam and treatment plan, and counseling patient) on 05/23. Quality MIPS - Admit I confirm the patient?s Advance Care Plan is present, Code status is documented, Surrogate decision maker is in patient?s record [If Yes, STOP here]: Yes MIPS - Meds 'Current medications' to include all prescriptions, [id number] products, herbals, cannabis/cannabidiol products, and vitamin/mineral/dietary (nutritional) supplements. I have utilized all available resources to obtain, update, or review the patient?s current medications. [If Yes, STOP here]: Yes
[2025-05-23 16:45] VITALS: BP 164/86; PULSE 120; RESP 16; O2SAT 95
[2025-05-23 17:35] VITALS: BP 160/99; PULSE 119; RESP 18; TEMP 37; O2SAT 97; BMI 33.8
[2025-05-23] MEDS: CLINDAMYCIN 600 MG/50 ML PIGGYBACK 50 MG IV (17:43)
[2025-05-23] MEDS: IBUPROFEN 400 MG TABLET PO ×2 (17:47→20:04)
[2025-05-23] MEDS: DOXYCYCLINE HYCLATE 100 MG TABLET PO ×2 (17:48→20:04)
[2025-05-23 20:00] VITALS: BP 163/100; PULSE 112; RESP 18; TEMP 36.8; O2SAT 96
[2025-05-23] MEDS: INSULIN GLARGINE 100 UNIT/ML 3ML PEN 10 UNIT SUBCUT (20:05)
[2025-05-23] MEDS: INSULIN LISPRO 100 UNIT/ML 3ML VIAL SUBCUT (20:05)
[2025-05-23 20:17] LABS: MRSA (Nasal) PCR NOT DETECTED (Not Detect)
[2025-05-24] VITALS: BP 167/100; PULSE 98; RESP 13; TEMP 36.2; O2SAT 96
[2025-05-24] MEDS: CLINDAMYCIN 600 MG/50 ML PIGGYBACK 50 MG IV ×3 (00:17→16:52)
[2025-05-24] MEDS: IBUPROFEN 400 MG TABLET PO ×6 (00:17→20:23)
[2025-05-24] MEDS: INSULIN REGULAR 100 UNIT/ML 3 ML VIAL SUBCUT (02:09)
--- NOTE | 2025-05-24 02:31 | PC.WOUNDPHOT ---
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
[2025-05-24 04:00] VITALS: BP 149/93; PULSE 98; RESP 16; TEMP 36.2; O2SAT 100
[2025-05-24 04:56] LABS: Add Manual Diff / Slide Review NO; Hematocrit 34.3 % (41-53); Hemoglobin 11.8 g/dL (13.5-17.5); Lymphocytes Absolute Auto 900 /uL (1100-4500); Mean Corpuscular HGB Conc 34.4 % (30-36); Mean Corpuscular Hemoglobin 28.4 PG (26-34); Mean Corpuscular Volume 82.7 fL (80-100); Platelet Count 321 X10^3/uL (150-400)
[2025-05-24 05:01] LABS: Hemoglobin A1C% w Est Avg Glu 13.0 % (4.0-6.0)
[2025-05-24 05:12] LABS: Blood Urea Nitrogen 19 mg/dL (9-20); Calcium 8.3 mg/dL (8.4-10.2); Carbon Dioxide 21 mmol/L (22-32); Chloride 98 mmol/L (98-107); Estimated Glomerular Filt Rate > 60 mL/min (>60); Glucose 365 mg/dL (70-99); HEMOLYSIS < 15 (0-50); Potassium 3.7 mmol/L (3.4-5.1); Sodium 135 mmol/L (137-145)
--- NOTE | 2025-05-24 07:36 | P.PN_ITS ---
Subjective Subjective Interval history: Summary: Patient was a 34-year-old male with a history of hidradenitis suppurativa. He has a history of diabetes, which is presumably poorly controlled as well as a history of recurrent infections related to his hidradenitis. He was treated with doxycycline for a left anterior thigh boil about 2 weeks ago. This improved but then he developed a right groin swelling and was started on Bactrim. After taking Bactrim for 2 days he developed acute pain and peeling of the skin of his lips and the tip of his penis. He sought medical advice, and stopped this antibiotic immediately. These symptoms have been stable to perhaps slowly improving. There has been no desquamation of skin anywhere else on his body. His mouth pain is improved and he was able to take an oral intake. He was able to urinate. He was then started on clindamycin for progression of his right groin swelling. He presents to the ED today because of progression and lack of response to clindamycin. On exam, he appears to have significant hidradenitis of the right groin without active drainage. This extends just across to the midline of the pubis. He also has redness and excoriation of the head of the penis and normal scrotal area and perineum. His right groin is indurated and swollen. Imaging indicates phlegmon but no clear drainable abscess. He was seen by surgery in the emergency department. He has a listed allergy to Ceclor and did react as noted in this note to Bactrim. He denies a history of MRSA. 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 He notes clindamycin seemed to have little effect on his right groin. He does note a history of recurrent boils and suppurativa. These symptoms typically occur more in the summer months. S: He had ruptured and spontaneous drainage from the right groin. It feels much better. The redness and tenderness is also improved. His mouth is better, and the tip of his penis has less tender. MRSA nares PCR negative. Exam Vital Signs (past 8 hours): - 05/24/25 00:00 05/24/25 04:00 Temperature 97.2 F L 97.2 F L Pulse Rate 98 H 98 H Respiratory Rate 13 16 Blood Pressure 167/100 H 149/93 H Pulse Oximetry 96 100 Oxygen Flow Rate 0 0 Oxygen Delivery Method Room Air Oxygen Flow Rate 0 Narrative Exam Narrative: NAD, alert and oriented. Fluent speech. Lungs are clear, normal rate and effort. Heart is regular, no murmur gallop or rub. Abdomen is soft, non distended. Extremities are free of edema. Some excoriation of the lips, but improved. Tip of penis as excoriated, but stable. Right groin is swollen with some areas of drainage. Overall improvement of the amount of erythema. Objective Imaging APCT: : Radiologist's impression: PELVIS: Pelvic Organs: Unremarkable. Bladder: No bladder wall thickening, accounting for underdistention. Pelvic Nodes: Asymmetrically enlarged right pelvic sidewall lymph nodes which measure up to 2.8 x 0.8 cm (2/128). Enlarged, 1.3 x 1.8 cm right inguinal nodes (2/145). Miscellaneous: C-shaped, a soft tissue inflammation and possible phlegmonous change without peripherally enhancing abscess in the right anterior inguinal region which measures 5.8 x 7.2 x 3.6 cm (CC x AP x Trans) (6/36; 2/158). Surrounding enhancing dermal thickening, consistent with cellulitis. No discrete intramuscular enhancing abscess within the right proximal thigh. Bones: No aggressive osseous abnormality. No focal periosteal reaction to suggest osteomyelitis. IMPRESSION: 1. Right inguinal cellulitis with soft tissue phlegmonous change. No well- defined, drainable abscess. 2. Right inguinal and pelvic sidewall lymphadenopathy is favored to be reactive Labs 05/24/25 04:32 05/24/25 04:32 Labs: Laboratory Results - last 24 hr 05/23/25 05/23/25 05/23/25 11:11 13:13 18:57 WBC 12.1 H RBC 4.71 Hgb 13.2 L Hct 39.0 L MCV 82.9 MCH 28.1 MCHC 33.9 RDW 12.8 Plt Count 336 Neut % (Auto) 80.9 H Lymph % (Auto) 9.8 L [place] % (Auto) 8.3 Eos % (Auto) 0.4 L Baso % (Auto) 0.6 Neut # (Auto) 9800 H Lymph # (Auto) 1200 [place] # (Auto) 1000 H Eos # (Auto) 0 Baso # (Auto) 100 ESR 50 H Sodium 136 L Potassium 4.1 Chloride 96 L Carbon Dioxide 23 BUN 17 Creatinine 0.50 L Estimated GFR > 60 BUN/Creatinine Ratio 34.0 H Glucose 412 H POC Whole Bld Glucose Hemoglobin A1c Lactate 1.0 Calcium 8.9 Total Bilirubin 0.8 AST 29 ALT 18 Alkaline Phosphatase 94 C-Reactive Protein 16.0 H Total Protein 7.9 Albumin 3.9 Globulin 4.0 Albumin/Globulin Ratio 1.0 Procalcitonin 0.081 Urine RBC 5-10/hpf H Urine WBC 5-10/hpf H Ur Squamous Epith Cells 5-10 /hpf H Urine Bacteria Occasional (0-1) Ur Culture Indicated? Specimen cultured Vol Urine Centrifuged 10ml (spun) Nasal Screen MRSA (PCR) Not detected 05/23/25 05/24/25 05/24/25 19:22 01:50 04:32 WBC 12.1 H RBC 4.15 L Hgb 11.8 L Hct 34.3 L MCV 82.7 MCH 28.4 MCHC 34.4 RDW 12.9 Plt Count 321 Neut % (Auto) 90.0 H Lymph % (Auto) 7.1 L [place] % (Auto) 2.7 L Eos % (Auto) 0.0 L Baso % (Auto) 0.2 Neut # (Auto) 93304 H Lymph # (Auto) 900 L [place] # (Auto) 300 Eos # (Auto) 0 Baso # (Auto) 0 ESR Sodium 135 L Potassium 3.7 Chloride 98 Carbon Dioxide 21 L BUN 19 Creatinine 0.58 L Estimated GFR > 60 BUN/Creatinine Ratio 32.8 H Glucose 365 H POC Whole Bld Glucose 367 H 371 H Hemoglobin A1c 13.0 H Lactate Calcium 8.3 L Total Bilirubin AST ALT Alkaline Phosphatase C-Reactive Protein Total Protein Albumin Globulin Albumin/Globulin Ratio Procalcitonin Urine RBC Urine WBC Ur Squamous Epith Cells Urine Bacteria Ur Culture Indicated? 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 Hidradenitis suppurativa with infection, present on admission and active. This is in the right groin. Improving. 2. 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 3. Diabetes mellitus type 2, poor control. A1c 13.0. PLAN: -we will initially treat with oral doxycycline and IV clindamycin. We will avoid Bactrim as this likely was the inciting event for his SJS. -nares MRSA screen. -low-dose prednisone and monitor excoriated areas of skin. -Lantus and sliding scale insulin and check A1c. Increase Lantus to 15 BID, A1c 13.0 Anticipate 2 midnights in the hospital, supports inpatient status. Full code is proxy decision maker. Time-Based Coding :: [TOTAL MINUTES] spent with patient and on the chart (including review of chart, obtaining history, exam, reviewing outside data, placing orders, documenting exam and treatment plan, and counseling patient) on [DATE]. Quality VTE Deep Vein Thrombosis/Pulmonary Embolism Present on Admission: No
--- NOTE | 2025-05-24 08:24 | CM.DANOTE ---
Initial DCP Assessment Visit Note Reviewed EMR and team rounds for pt's medical status and updates. Met with pt and spouse at bedside to introduce self and role, pt was found to be resting quietly, easily arousable and able to discuss his supports and plan for home d/c. His spouse will transport him home at time of d/c. Payor: [id number] PCP: Dr. Mosquera Pt is a 34 year-old M who was initially seen at the [facility] for the second time re: another skin abcess, this time on his R-groin area. He had initially been given oral antibiotics, which were changed twice, and then he started experiencing peeling of the skin on his lips and penis. 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 CT imaging showed R-inguinal celllulitis and lymphadenopathy. Cultures are still pending. He was started on IV antibiotics, and admitted to the floor for further tx and symptom management. DCP will continue to follow for final dc antibiotic plan, as well as any further evolving support needs prior to his dc. Discharge Planning/Care Management CM Discharge Assessment Start: 05/23/25 17:33 Freq: Status: Active Protocol: Document 05/24/25 08:21 DPL (Rec: 05/24/25 08:24 DPL [id number]) Discharge Planning Assessment Assigned Discharge JOSE Nicole Lead Generation Marketing Manager Provider Demetri Flores [facility] Advance Directives? No Advance Directives No on File History Provided By Patient,Significant Other,Medical Record Has Patient been No admitted in last 30 days? Prior Living House Arrangements Household Members spouse Type of Drives own vehicle transporation used prior to admit Independent with ADL Yes 's Is patient alert and Yes oriented? Comment N/A Comment No identified home d/c needs at this time. Barriers to No Discharge Discharge Plan Home Transportation Arrangement Referrals Initiated None needed Additional Comment Waiting for I&D completion and confirm no IV-Abx needed at d/c. Review Status In Process Please Provide Date 05/24/25 Initial DC Assessment Was Performed
[2025-05-24] MEDS: INSULIN GLARGINE 100 UNIT/ML 3ML PEN 10 UNIT SUBCUT (08:25)
[2025-05-24] MEDS: INSULIN LISPRO 100 UNIT/ML 3ML VIAL SUBCUT ×5 (08:25→20:27)
[2025-05-24 08:26] VITALS: BP 169/86; PULSE 97; RESP 16; TEMP 36.3; O2SAT 98
[2025-05-24] MEDS: DOXYCYCLINE HYCLATE 100 MG TABLET PO ×2 (08:26→20:23)
[2025-05-24] MEDS: LOSARTAN 50 MG TABLET 100 MG PO (08:27)
--- NOTE | 2025-05-24 18:21 | PC.NURSE ---
PATIENT AOX4. ROOM AIR. NO C/O SOB OR S/S OF RESPI DISTRESS NOTED. PAIN RANGING FROM 2-3 CONTROLLED WITH ADVIL. R GROIN WOUND CULTURE SENT. BLOOD SUGAR REMAINED IN 300S. SEE EMAR FOR MEDICATION ADJUSTMENT. NO CONCERNS FROM PATIENT. CARE ONGOING.
[2025-05-24 19:00] VITALS: BP 127/89; PULSE 109; RESP 16; TEMP 36.2; O2SAT 97
[2025-05-24] MEDS: INSULIN GLARGINE 100 UNIT/ML 3ML PEN 15 UNIT SUBCUT (20:28)
[2025-05-25] MEDS: IBUPROFEN 400 MG TABLET PO ×6 (01:35→22:29)
[2025-05-25] MEDS: ACETAMINOPHEN 325 MG TABLET 650 MG PO (01:35)
[2025-05-25] MEDS: SODIUM CHLORIDE 0.9% FLUSH 10 ML IV ×3 (01:36→22:46)
[2025-05-25] MEDS: CLINDAMYCIN 600 MG/50 ML PIGGYBACK 50 MG IV ×2 (02:47→08:44)
[2025-05-25 05:22] LABS: Add Manual Diff / Slide Review NO; Hematocrit 33.1 % (41-53); Hemoglobin 11.8 g/dL (13.5-17.5); Lymphocytes Absolute Auto 2300 /uL (1100-4500); Mean Corpuscular HGB Conc 35.8 % (30-36); Mean Corpuscular Hemoglobin 29.1 PG (26-34); Mean Corpuscular Volume 81.2 fL (80-100); Platelet Count 330 X10^3/uL (150-400)
[2025-05-25 05:41] LABS: Blood Urea Nitrogen 20 mg/dL (9-20); Calcium 8.4 mg/dL (8.4-10.2); Carbon Dioxide 26 mmol/L (22-32); Chloride 97 mmol/L (98-107); Estimated Glomerular Filt Rate > 60 mL/min (>60); Glucose 313 mg/dL (70-99); HEMOLYSIS < 15 (0-50); Potassium 3.1 mmol/L (3.4-5.1); Sodium 132 mmol/L (137-145)
[2025-05-25] MEDS: INSULIN LISPRO 100 UNIT/ML 3ML VIAL SUBCUT ×5 (07:46→22:45)
[2025-05-25 08:12] VITALS: BP 176/107; PULSE 101; RESP 15; TEMP 36.2; O2SAT 96
[2025-05-25] MEDS: DOXYCYCLINE HYCLATE 100 MG TABLET PO ×2 (08:43→22:29)
[2025-05-25] MEDS: POTASSIUM CHLORIDE 20 MEQ TAB 40 MEQ PO ×2 (08:43→13:59)
[2025-05-25] MEDS: LOSARTAN 50 MG TABLET 100 MG PO (08:44)
[2025-05-25] MEDS: INSULIN GLARGINE 100 UNIT/ML 3ML PEN 25 UNIT SUBCUT ×2 (08:50→22:32)
[2025-05-25] MEDS: INSULIN LISPRO 100 UNIT/ML 3ML VIAL 8 UNIT SUBCUT ×2 (11:47→16:54)
[2025-05-25] MEDS: cefTRIAXone 2,000 MG in SODIUM CHLORIDE 0.9% 100 ML 200 MG IV (15:06)
--- NOTE | 2025-05-25 15:24 | PM.PN.1 ---
Subjective Subjective Interval history: 34 yo male w/DM2, Class 1 obesity and hidradenitis suppurativa admitted w/R groin abscess and desquamation of the lips and penis secondary to bactrim. Patient reports he has continued to have some ongoing drainage from his right groin. He notes it mostly when he is up to use the bathroom. He does note improvement overall in the desquamation of his lips and penis. He has been able to eat and drink better. He also notes scabbing of the ulcerations on the tip of his penis. He did not have any obvious involvement of his. Specifically he notes he did not have any pain or redness to his eyes. No other mucous membranes were irritated. Exam Vital Signs (past 8 hours): - 05/24/25 19:00 Temperature 97.1 F L Pulse Rate 109 H Respiratory Rate 16 Blood Pressure 127/89 Pulse Oximetry 97 Oxygen Flow Rate 0 Oxygen Delivery Method Room Air Oxygen Flow Rate 0 Narrative Exam Narrative: GEN: Very pleasant adult male, Alert and oriented x 3, NAD HEENT:NC, Face symmetric CHEST: Respiratory excursions symmetric, CTAB CV: RRR, no M/R/G ABD: Soft, NT/ND, BT present in all 4 quadrants, no organomegaly or masses EXTR: warm, well perfused, no C/C/E SKIN: warm and dry, no rash, right groin reveals a small approximately 5 mm open abscess; with pressure a large volume of purulent material was drained. A small piece of tissues/cyst capsule was expressed from the hole as well. There is a large indurated area in the inguinal region just lateral to this abscess. It is raised, indurated, with some fluctuance as well. It is not tense. There is some discomfort with palpation. There is erythema which then extends several cm outward across the medial thigh. There is a healing abscess noted to the left medial thigh as well. NEURO: Alert and oriented x 3, nonfocal Objective Labs 05/25/25 05:08 05/25/25 05:08 Labs: Laboratory Results - last 24 hr 05/24/25 05/24/25 05/24/25 01:50 04:32 07:58 WBC 12.1 H RBC 4.15 L Hgb 11.8 L Hct 34.3 L MCV 82.7 MCH 28.4 MCHC 34.4 RDW 12.9 Plt Count 321 Neut % (Auto) 90.0 H Lymph % (Auto) 7.1 L [place] % (Auto) 2.7 L Eos % (Auto) 0.0 L Baso % (Auto) 0.2 Neut # (Auto) 78306 H Lymph # (Auto) 900 L [place] # (Auto) 300 Eos # (Auto) 0 Baso # (Auto) 0 Sodium 135 L Potassium 3.7 Chloride 98 Carbon Dioxide 21 L BUN 19 Creatinine 0.58 L Estimated GFR > 60 BUN/Creatinine Ratio 32.8 H Glucose 365 H POC Whole Bld Glucose 371 H 339 H Hemoglobin A1c 13.0 H Calcium 8.3 L 05/24/25 05/24/25 05/24/25 11:57 16:29 20:00 WBC RBC Hgb Hct MCV MCH MCHC RDW Plt Count Neut % (Auto) Lymph % (Auto) [place] % (Auto) Eos % (Auto) Baso % (Auto) Neut # (Auto) Lymph # (Auto) [place] # (Auto) Eos # (Auto) Baso # (Auto) Sodium Potassium Chloride Carbon Dioxide BUN Creatinine Estimated GFR BUN/Creatinine Ratio Glucose POC Whole Bld Glucose 343 H 374 H 363 H Hemoglobin A1c Calcium PFSH Medical History 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 Hidradenitis suppurativa w/acute R groin abscess Developed spontaneous drainage yesterday. I was able to express a large volume of pus today. I will have an iodoform gauze strip placed into the abscess cavity today to keep the wound open and draining. Wound is growing scant amount of group B strep. Will discontinue the clindamycin and add ceftriaxone. Continue doxycycline as well. We will monitor the secondary lesion/induration to ensure that that continues to improve as well. Continue prednisone 40 mg daily as well 2. Desquamation of the Lips/penis secondary to bactrim Improving. Continue to monitor. 3. DM2, uncontrolled w/A1C 13% Lantus was increased from 10 U qhs to 15 U BID last night. BGS are likely more difficult to control d/t prednisone 40 mg daily. 4. HTN Continues HCTZ, losartan and amlodipine. 5. Class 1 obesity BMI 33.9. Would benefit from weight reduction. Code status Full Prophy Low keila score Dispo Possible discharge tomorrow depending on the status of his abscesses Time-Based Coding :: [TOTAL MINUTES] spent with patient and on the chart (including review of chart, obtaining history, exam, reviewing outside data, placing orders, documenting exam and treatment plan, and counseling patient) on [DATE]. Quality VTE Deep Vein Thrombosis/Pulmonary Embolism Present on Admission: No
[2025-05-25 19:38] VITALS: BP 144/102; PULSE 111; RESP 19; TEMP 36.2; O2SAT 97
[2025-05-26 05:19] LABS: Add Manual Diff / Slide Review NO; Hematocrit 35.2 % (41-53); Hemoglobin 12.4 g/dL (13.5-17.5); Lymphocytes Absolute Auto 2200 /uL (1100-4500); Mean Corpuscular HGB Conc 35.2 % (30-36); Mean Corpuscular Hemoglobin 28.5 PG (26-34); Mean Corpuscular Volume 81.0 fL (80-100); Platelet Count 377 X10^3/uL (150-400)
[2025-05-26 05:32] LABS: Blood Urea Nitrogen 21 mg/dL (9-20); Calcium 8.8 mg/dL (8.4-10.2); Carbon Dioxide 27 mmol/L (22-32); Chloride 99 mmol/L (98-107); Estimated Glomerular Filt Rate > 60 mL/min (>60); Glucose 242 mg/dL (70-99); HEMOLYSIS < 15 (0-50); Potassium 3.4 mmol/L (3.4-5.1); Sodium 135 mmol/L (137-145)
[2025-05-26 08:05] VITALS: BP 154/98; PULSE 96; RESP 17; TEMP 36.2; O2SAT 96
[2025-05-26] MEDS: LOSARTAN 50 MG TABLET 100 MG PO (08:13)
[2025-05-26] MEDS: IBUPROFEN 400 MG TABLET PO ×2 (08:14→12:54)
[2025-05-26] MEDS: DOXYCYCLINE HYCLATE 100 MG TABLET PO (08:14)
[2025-05-26] MEDS: INSULIN LISPRO 100 UNIT/ML 3ML VIAL 8 UNIT SUBCUT ×2 (08:18→12:45)
[2025-05-26] MEDS: INSULIN LISPRO 100 UNIT/ML 3ML VIAL SUBCUT ×2 (08:18→12:45)
[2025-05-26] MEDS: INSULIN GLARGINE 100 UNIT/ML 3ML PEN 40 UNIT SUBCUT (08:20)
[2025-05-26] MEDS: SODIUM CHLORIDE 0.9% FLUSH 10 ML IV (08:21)
[2025-05-26] MEDS: POTASSIUM CHLORIDE 20 MEQ TAB 40 MEQ PO (08:24)
[2025-05-26] MEDS: ACETAMINOPHEN 325 MG TABLET 650 MG PO (11:16)
[2025-05-26] MEDS: cefTRIAXone 2,000 MG in SODIUM CHLORIDE 0.9% 100 ML 200 MG IV (13:00)
--- NOTE | 2025-05-26 14:17 | CM.DPC ---
DCP Discharge Home Per MD, able to drain pt's abscess and monitoring other spot from his hydrodenitis at baseline and IV abx seemed to have increased improvement with group B strep in cultures and getting increased insulin today and now medically stable to d/c home with outpt f/u and on PO meds. No identified barriers to discharge. Per RN, pt has been independent in room and dc instructions to be provided and no concerns noted. Plan: Patient to d/c home on PO meds via spouse POV and outpt f/u and no further identified discharge planning needs. Cammy Smart MSW
--- NOTE | 2025-05-26 16:53 | PC.NURSE ---
Patient is A&OX4, VSS, afebrile on RA. He reports pain to R groin wound, and mouth, (healing scabs) is tolerable. Patient has R groin abscess site evaluated and drained at the bedside. Patient expressses eagerness to discharge and feeling better. He is provided with diabetes education on insulin, logging BG as well as recommended to follow up with PCP within a week. He acknowledes understanding of plan as well as returning to ED if symptoms worsen. He is given physical prescriptions upon discharge. RN escorts patient to ED entrance for discharge today at 1500 for discharge home.
--- NOTE | 2025-05-26 20:49 | P.DS_ITS ---
History of Present Illness History of Present Illness Chief complaint: right groin abscess, x 7 days Narrative: Per H&P: Patient was a 34-year-old male with a history of hidradenitis suppurativa. He has a history of diabetes, which is presumably poorly controlled as well as a history of recurrent infections related to his hidradenitis. He was treated with doxycycline for a left anterior thigh boil about 2 weeks ago. This improved but then he developed a right groin swelling and was started on Bactrim. After taking Bactrim for 2 days he developed acute pain and peeling of the skin of his lips and the tip of his penis. He sought medical advice, and stopped this antibiotic immediately. These symptoms have been stable to perhaps slowly improving. There has been no desquamation of skin anywhere else on his body. His mouth pain is improved and he was able to take an oral intake. He was able to urinate. He was then started on clindamycin for progression of his right groin swelling. He presents to the ED today because of progression and lack of response to clindamycin. On exam, he appears to have significant hidradenitis of the right groin without active drainage. This extends just across to the midline of the pubis. He also has redness and excoriation of the head of the penis and normal scrotal area and perineum. His right groin is indurated and swollen. Imaging indicates phlegmon but no clear drainable abscess. He was seen by surgery in the emergency department. He has a listed allergy to Ceclor and did react as noted in this note to Bactrim. He denies a history of MRSA. 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 He notes clindamycin seemed to have little effect on his right groin. He does note a history of recurrent boils and suppurativa. These symptoms typically occur more in the summer months. Discharge Providers Provider Date of admission: 05/23/25 16:27 Discharge Date: 05/26/25 Primary care physician: NEETU Arellano Discharge provider: Odette Drew MD Summary Hospital Course Discharge Diagnosis: 1. Hidradenitis suppurativa with acute right groin abscess growing group B strep 2. Desquamation of the lip/penis secondary to Bactrim 3. Diabetes mellitus type 2, uncontrolled with hemoglobin A1c of 13% 4. Hypertension 5. Class 1 obesity Hospital Course: Patient was admitted with an increasing right groin abscess secondary to hidradenitis suppurativa. He had been placed on outpatient Bactrim. Unfortunately he developed a severe reaction to the Bactrim and suffered ulceration and desquamation of his lips and penis. Bactrim was immediately discontinued. Upon admission he was placed on clindamycin and doxycycline. On the date of admission, imaging showed a phlegmon but no discrete abscess. On the day following admission, it spontaneously opened and began draining. The drainage was cultured and on May 25 a scant amount of group B strep was growing from the culture. He was subsequently changed to ceftriaxone and doxycycline. He had significant improvement in the cellulitis around his right groin and medial right thigh. He continued to have drainage in large amounts from the right groin abscess. Iodoform gauze was placed to prevent closure of the abscess cavity. On the day of discharge, he had ongoing large amounts of purulent drainage. Again an iodoform gauze wick was placed within the abscess cavity to prevent closure as the abscess cavity opening appeared to be smaller. Over his medial right thigh, there was a large indurated area with several apparent previous abscesses. The entirety of the involved area measured approximately 10 cm by 3 cm. There was some fluctuance noted to the entire area. On the date of discharge, with clean technique Betadine swab was used and pressure was applied to the region to coalesce the fluctuance into 1 discrete area of the entire wound. A 21 gauge needle was used to aspirate the fluctuance without any obvious drainage noted several small punctures were made and again no drainage was noted. When pressure was applied to that area, air was ultimately expressed and the skin flattened out over the entire length of the wound. At the time of discharge, patient is encouraged to monitor the 10 cm x 3 cm wound for increasing swelling, erythema, fluctuance, or air buildup. He is also encouraged to continue monitoring the purulence draining from his right groin abscess. He is to add an iodoform wick daily until there is no further drainage from the abscess cavity. He will complete antibiotics inclusive cephalexin and doxycycline. His diabetes is poorly controlled. He required multiple titration of insulin. At the time of discharge, he is on Lantus 40 units twice daily as well as prandial insulin 8 units with each meal. He is discharging on prednisone for his hidradenitis flare. This will be discontinued within 24 hours. It is expected his blood sugars will improve off of prednisone. He will need close follow-up with his PCP for further insulin titration. He is discharged in stable condition. Time Spent with Patient Time spent: Greater than 30 minutes Exam Vital Signs (past 8 hours): Oxygen Delivery Method Room Air Oxygen Flow Rate 0 Narrative Exam Narrative: GEN: Very pleasant adult male, Alert and oriented x 3, NAD HEENT:NC, Face symmetric CHEST: Respiratory excursions symmetric, CTAB CV: RRR, no M/R/G ABD: Soft, NT/ND, BT present in all 4 quadrants, no organomegaly or masses EXTR: warm, well perfused, no C/C/E SKIN: warm and dry, no rash, right groin reveals a small approximately 2 mm open abscess; with pressure a large volume of purulent material was drained. The erythema around the medial thigh is significantly improved NEURO: Alert and oriented x 3, nonfocal Objective Labs 05/26/25 05:04 05/26/25 05:04 Labs: Laboratory Results - last 24 hr 05/26/25 05/26/25 05/26/25 05:04 07:42 11:49 WBC 10.0 RBC 4.35 L Hgb 12.4 L Hct 35.2 L MCV 81.0 MCH 28.5 MCHC 35.2 RDW 12.8 Plt Count 377 Neut % (Auto) 68.0 Lymph % (Auto) 21.9 L [place] % (Auto) 9.4 Eos % (Auto) 0.2 L Baso % (Auto) 0.5 Neut # (Auto) 6800 Lymph # (Auto) 2200 [place] # (Auto) 900 Eos # (Auto) 0 Baso # (Auto) 100 Sodium 135 L Potassium 3.4 Chloride 99 Carbon Dioxide 27 BUN 21 H Creatinine 0.58 L Estimated GFR > 60 BUN/Creatinine Ratio 36.2 H Glucose 242 H POC Whole Bld Glucose 255 H 264 H Calcium 8.8 PFSH Medical History Amputated toe of right foot Osteomyelitis of ankle and foot HTN (hypertension) Surgical History S/P tonsillectomy Hx of toe surgery No pertinent past surgical history Family History Father Diabetes mellitus Hypertension Mother Benign neoplasm of abdomen Sister Diabetes mellitus Social History household members: spouse Smoking Status: Never smoker alcohol intake: former Discharge Plan Discharge Plan Patient Disposition: Home Provider Discharge Comment: 1) Continue daily packing of your R groin abscess with the iodoform gauze. cover with 2x2 gauze and paper tape (please send him home w/gauze, tape and sterile scissors and tweezers). 2) Continue to pack the abscess until it is no longer draining. 3) Take antibiotics until gone. 4) Use antibacterial soap in the shower. Your insulin was changed to: Lantus 40 units twice daily Lispro (short-acting insulin) 8 units with breakfast, lunch, and dinner Continue to check your blood sugars four times daily: fasting in the morning, before lunch, before dinner, and bedtime. Keep a log of your Blood sugars and bring to your next PCP appointment. Call your PCP for BGs above 400 or below 80 F/u with your PCP next week. Return to the ED: Fevers/chills/worsening redness or swelling in your groin Inability to hold down food/fluids/medication. Blood sugars sustained above 450 or below 80 Discharge orders & Medications Prescriptions: New prednisone 20 mg Tablet 40 mg PO DAILY Qty: 2 0RF insulin lispro [Admelog U-100 Insulin lispro] 100 unit/mL Solution 8 unit SUBCUT AC Qty: 100 0RF oxycodone 5 mg Tablet 5 mg PO Q3H PRN (Reason: Pain, Moderate (4-6)) Qty: 10 0RF insulin glargine [Lantus Solostar U-100 Insulin] 100 unit/mL (3 mL) Insulin Pen 40 unit SUBCUT BID Qty: 15 0RF amlodipine 5 mg Tablet 10 mg PO DAILY Qty: 30 0RF hydrochlorothiazide 25 mg Tablet 25 mg PO DAILY Qty: 30 0RF doxycycline hyclate 100 mg Tablet 100 mg PO BID Qty: 8 0RF cephalexin 500 mg capsule 500 mg PO QID Qty: 32 0RF Continued losartan-hydrochlorothiazide 100-25 mg tablet 1 tab PO QAM metformin 750 mg tablet extended release 24 hr 1,500 mg PO QAM ondansetron 8 mg tablet,disintegrating 8 mg PO Q8H PRN (Reason: nausea/vomiting) clotrimazole-betamethasone 1-0.05 % cream 1 applic topical BID acetaminophen 325 mg Tablet 650 mg PO Q6HR PRN (Reason: As Needed For Fever/Mild Pain) Qty: 30 0RF ibuprofen 200 mg Tablet 600 mg PO PRN PRN (Reason: pain) Qty: 0 0RF Rx Instructions: take with food and drink plenty of water glucose 4 gram tablet,chewable 4 gram PO Q15M PRN (Reason: hypoglycemia) Qty: 30 0RF Rx Instructions: until response (DME) blood-glucose meter [Glucocard Shine Meter Kit] Kit See Rx Instructions .ROUTE .MEDSUPPLY Qty: 1 0RF Rx Instructions: check blood glucose 4 times a day loperamide 2 mg tablet 2 mg PO Q6H PRN (Reason: loose stool) Qty: 20 0RF Discontinued amlodipine 5 mg tablet 5 mg PO DAILY Follow up/Referrals: Brittany Mosquera ARNP [Primary Care Provider, Medical] Discharge Health Status Multidrug resistant organism: No MDRO Diet/Activity/Treatments Diet: Diet as Tolerated and Carb-consistent/Diabetic Activity: As tolerated Oxygen: N/A Visit Report/Discharge Packet Instructions: Hidradenitis Suppurativa, DI for Diabetes Type 2 Stand Alone Forms: Patient Portal/API, Stroke Signs & Symptoms Discharge Data Primary Care Provider: Brittany Mosquera Quality VTE Deep Vein Thrombosis/Pulmonary Embolism Present on Admission: No
== END 2025-05-26 15:00 | disposition home or self-care (01) | DRG 607 ==
LOC: ED 13:37 → AC 16:28
PROVIDERS: Admitting Provider Hospitalist; Emergency Provider Family Medicine; PCP Nurse Practitioner Gerontology; Referring Provider Family Medicine; Visit Provider Hospitalist
DX: L73.2 Hidradenitis suppurativa (principal); L51.1 Stevens-Johnson syndrome; E66.811 Obesity, class 1; L02.214 Cutaneous abscess of groin; R23.4 Changes in skin texture; T36.8X5A Adverse effect of other systemic antibiotics, initial encounter; E11.65 Type 2 diabetes mellitus with hyperglycemia; I10 Essential (primary) hypertension; B95.1 Streptococcus, group B, as the cause of diseases classified elsewhere; L03.314 Cellulitis of groin; T38.3X6A Underdosing of insulin and oral hypoglycemic [antidiabetic] drugs, initial encounter; Z91.148 Patient's other noncompliance with medication regimen for other reason; Z79.84 Long term (current) use of oral hypoglycemic drugs; Z68.33 Body mass index [BMI] 33.0-33.9, adult
CPT/HCPCS: 36415; 74177; 80048; 80053; 81003; 81015; 82962; 83036; 83605; 84145; 85025; 85651; 86140; 87040; 87070; 87086; 87147; 87205; 87797; 96365; 96366; 96367; 96375; 99284; J0696; J1815; J2543; J3373; Q9967

== ENCOUNTER → 2025-08-14 08:53 | Outpatient (CLI) | payer BC, SELFPAY ==
--- NOTE | 2025-08-14 12:31 | DIAB.MNT ---
Initial Diabetes Medical Nutrition Therapy Assessment Name: Jermain Quan Date: 08/14/25 Time: a Dx: Type II Diabetes Provider: Shawn Youssef Learning Style: Doing, Listening, Watching Vadim presents for initial Dm visit. Endorses dx about 3-4 years ago. Reports FH of T1 and T2 DM. Main goal today is to learn about insulin to carb ratio per report. Wants to know more concretely how to dose meal time insulin, currently guessing. Based on reported insulin, ranging from 15-20g per 1u insulin. Endorses lows occasionally, fewer now, use to be weekly. Current CGM Carmen is recalled due to false lows, which his sensors have been displaying per report. Endorses a BG of 90mg/dl when alerted for <60mg/dl on CGM. States he recently restarted insulin after a period of not taking care of myself which resulted in hgA1c of 13% 05/2025. States at that time it was difficult to use insulin due to pain with injections specifically with the type of needles he was using. Now using smaller gauge needles without issue. Open to the idea of insulin pump and is familiar with this, given sister and friend with T1. Though this RD thinks he may not need a pump if he continues to titrate GLP1 and BG continue to improve as they have. May need to consider reduction in basal insulin with increase in GLP1. Endorses right eye blurriness. H/o retinopathy with specialist eye provider care. Plans to restart those visits in September. Aims for a low Cho diet. Treats lows with juice or candy or glucose tabs. Has been on Tirzepatide with plans to titrate up to 7mg in 2.5 weeks. Reduced appetite with GLP1. Some nausea in the morning if eating too fast. Trying to avoid Na due to elevated BP, though does eat quite a bit of high Na breakfasts due to convenience items from [employer]. Endorses a wt of >350# prior to diagnosis. States he lost wt prior to diagnosis likely r/t hyperglycemia. Diet Recall: : coffee sf, salami, cheese, olives OR breakfast burrito x 1/2 sn: a few pieces of candy through the day if BG is <100mg/dl 1-230p: salad with croutons and cheese +/- chx or turkey 5-6p: chicken sometimes steak, veggies, occasional tater tots sn; nothing or salami, cheese, olives Or 5.5c popcorn water 1-1.5L coffee 20-24oz Anthropometrics: Ht: 67 Wt: 231.5# 07/2025 Weight history: Physical Activity: No program currently. More walking with nice weather. 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 Planning on joining gym. Self-Monitoring Blood Glucose: Wearing Carmen. Likely excessive time of lows inaccurate based on pt report and recall. Likely lows 1-2x over 14 days. Only using meal time insulin on higher CHO meals 0-1x per day. TIR: 0% very high 3% high 94% in range 3% low 0% very low avmg/dl GMI: 6% variation: 27.3% Date Pre Post Pre Post Pre Post HS Diabetes Medications: 40u Lantus BID 3-7u Lispro (rx for 8u TID) 1500mg Metformin XR 5mg Tirzepatide Pertinent Labs: HgA1c: 13% 05/2025 Past Medical History: (Last Updated 07/18/25 @ 10:17 by Renee Mckeon, [facility]) Amputated toe of right foot HTN (hypertension) Osteomyelitis of ankle and foot Type 2 diabetes mellitus Nutrition Rx: Carbohydrates: Meal:30-45g Snack:15-30g Nutrition Diagnosis: - Nutrition and food related knowledge deficit r/t limited education aeb pt report - Physical inactivity r/t weather dependent activity plan aeb pt report - Predicted excessive Na intake r/t convenience food item choices aeb pt report and BP elevations Intervention: This participant was very receptive. Provided appropriate educational handouts. Discussed the following topics: Completed intake assessment. Discussed barriers to care. ADA vs AACE goals for BG and HgA1c Low BG tx and s/s Strategies for adding protein to lunch Ideas for breakfast lower in Na Recall on CGM. Potential to try Dexcom G7. Differences between CGMs. IC Ratio options and current insulin regimen Medication management Created SMART goals for patient self-care and success. Goals: Try 1u to 15-20g CHO for meals Add protein to lunch consistently Consider reduction in Lantus when increasing GLP1 to avoid lows (may need 10-20% reduction) Try homemade breakfast burrito Try G7 Dexcom sample prn Follow-up: LONI DORSEY follow-up in 3-4 weeks or sooner prn. Vadim's BG is often on the lower side overnight and between meals. May need insulin reduction if increasing Glp1. Gwen Duarte RDN, [facility] Certified Diabetes Care and Illustrator Set P: [phone] Thank you for this referral
== END ==
LOC: DIET 08:53
PROVIDERS: PCP Nurse Practitioner Family; Referring Provider Nurse Practitioner Family
DX: E11.9 Type 2 diabetes mellitus without complications (principal); Z71.3 Dietary counseling and surveillance; Z83.3 Family history of diabetes mellitus; Z79.84 Long term (current) use of oral hypoglycemic drugs; Z79.4 Long term (current) use of insulin
CPT/HCPCS: 97802